=== PATIENT | male | born 1990 | race Caucasian/White ===

== ENCOUNTER 2018-01-12 11:55 | Inpatient (IN) | payer MEDICAID, OTHER ==
--- NOTE | 2018-01-12 12:26 | ED PDOC ---
Arrival/HPI <Susanne Dumont - Last Filed: 01/12/18 16:09> - General Historian: Patient, Parent - History of Present Illness Time/Duration: > week Symptom Onset: Sudden Symptom Course: Unchanged Severity Level: Mild <Horace Nguyen - Last Filed: 01/12/18 18:00> - General Chief Complaint: Headache Time Seen by Provider: 01/12/18 12:23 - History of Present Illness Narrative History of Present Illness (Text): Patient is a 27 year old male with no significant past medical history presenting to the ED with inability to sleep and hearing voices. Patient states that these symptoms started last week after smoking some marijuana and possibly taking micheal, patient did not remember if he took drugs. Patient denies having any suicidal or homicidal ideation. As per patient's father, he went through the same symptoms 5 years ago where he was admitted to [facility] but is unsure of his diagnosis. Patient further denies headaches, fevers, chills , cough, shortness of breath, chest pain, abdominal pain, N/V/D, or urinary symptoms. (Horace Nguyen) Past Medical History - Provider Review Nursing Documentation Reviewed: Yes - Travel History Have you recently traveled outside [place] w/in the past 3 mons?: No - Past History Past History: No Previous - Infectious Disease Hx of Infectious Diseases: None - Psychiatric Hx Substance Use: Yes - Anesthesia Hx Anesthesia: No <Horace Nguyen - Last Filed: 01/12/18 18:00> Family/Social History - Physician Review Nursing Documentation Reviewed: Yes Family/Social History: No Known Family HX Smoking Status: Never Smoked Hx Alcohol Use: Yes Frequency of alcohol use: Socially Hx Substance Use: Yes Substance used: marijuana, <Horace Nguyen - Last Filed: 01/12/18 18:00> Allergies/Home Meds <Susanne Dumont - Last Filed: 01/12/18 16:09> <Horace Nguyen - Last Filed: 01/12/18 18:00> Allergies/Adverse Reactions: Allergies No Known Allergies Allergy (Verified 01/12/18 12:16) Home Medications: Home Meds Medication Instructions Recorded Confirmed No Known Home Med 01/12/18 01/12/18 Review of Systems - Physician Review All systems were reviewed & negative as marked: Yes - Review of Systems Constitutional: Normal. absent: Fevers, Night Sweats Eyes: Normal ENT: Normal Respiratory: Normal. absent: SOB, Cough Cardiovascular: Normal. absent: Chest Pain Gastrointestinal: Normal. absent: Abdominal Pain, Stool Changes, Constipation, Diarrhea, Nausea, Vomiting Genitourinary Male: Normal Musculoskeletal: Arthralgias Skin: Normal. absent: Rash, Pruritis, Skin Lesions Neurological: Normal. absent: Headache Endocrine: Normal Hemo/Lymphatic: Normal Psychiatric: Normal. absent: Suicidal Ideation <Horace Nguyen - Last Filed: 01/12/18 18:00> Physical Exam Vital Signs Reviewed: Yes Temperature: Afebrile Blood Pressure: Hypertensive Pulse: Tachycardic Respiratory Rate: Normal Appearance: Positive for: Well-Appearing, Non-Toxic, Comfortable Pain Distress: None Mental Status: Positive for: Confused - Systems Exam Head: Present: Atraumatic, Normocephalic. No: Tenderness, Contusion, Abrasion, Laceration Pupils: Present: PERRL Extroacular Muscles: Present: EOMI Conjunctiva: Present: Normal Mouth: Present: Moist Mucous Membranes Neck: Present: Normal Range of Motion Respiratory/Chest: Present: Clear to Auscultation, Good Air Exchange. No: Respiratory Distress, Accessory Muscle Use Cardiovascular: Present: Normal S1, S2, Tachycardic. No: Murmurs Abdomen: Present: Normal Bowel Sounds. No: Tenderness, Distention, Peritoneal Signs Back: Present: Normal Inspection Upper Extremity: Present: Normal Inspection. No: Cyanosis, Edema Lower Extremity: Present: Normal Inspection. No: Edema Neurological: Present: GCS=15, CN II-XII Intact, Speech Normal Skin: Present: Warm, Dry, Normal Color. No: Rashes Psychiatric: Present: Alert, Hallucinations (Complains of auditory hallucinations). No: Suicidal Ideation, Homicidal Ideation <Horace Nguyen - Last Filed: 01/12/18 18:00> Vital Signs Temp Pulse Resp BP Pulse Ox 01/12/18 16:11 95 H 18 132/70 97 01/12/18 15:35 102 H 18 135/78 100 01/12/18 12:19 98.4 F 116 H 18 137/81 100 Medical Decision Making <Susanne Dumont - Last Filed: 01/12/18 16:09> <Horace Nguyen - Last Filed: 01/12/18 18:00> ED Course and Treatment: 01/12/18 14:00 Patient seen by resident and then evaluated by me. Admits to drug use and now presenting with auditory hallucinations. Prior psych admissions. Normal physical exam except for bizaree affect. EKG shows NSR at 84bpm with lvh with normal intervals and no st changes. Cxray negative. Labs reviewed and medically cleared pending psych 01/12/18 14:02 01/12/18 16:09 Accepted by psych (Susanne Dumont) Impression: Patient is a 27 year old male presenting to the ED with inability to sleep and hearing auditory hallucination. Differential Diagnosis included but are not limited to: - Substance abuse - Psychiatric illness Plan: -- Psychiatry consultation -- Acetaminophen levels -- Salicylate levels -- CMP, phos, Mag -- CBC -- TSH, T4 -- UDS -- Alcohol level -- CXR -- EKG Progress Notes: 01/12/18 12:54 - EKG: NSR at 84 bpm. 01/12/18 13:32 - Acetaminophen and salicylate levels: Negative - UDS: Negative - Alcohol level: negative - TSH, T4: WNL - CXR: No active disease 01/12/18 17:59 - Patient will voluntarily be admitted to psych. Patient is stable. (Horace Nguyen) - Lab Interpretations Lab Results: 01/12/18 12:41 01/12/18 12:41 Lab Results 01/12/18 13:15: Urine Opiates Screen Negative, Urine Methadone Screen Negative, Ur Barbiturates Screen Negative, Ur Phencyclidine Scrn Negative, Ur Amphetamines Screen Negative, U Benzodiazepines Scrn Negative, U Oth Cocaine Metabols Negative, U Cannabinoids Screen Negative 01/12/18 13:15: Urine Color Yellow, Urine Appearance Clear, Urine pH 7.0, Ur Specific [place] <= 1.005, Urine Protein Negative, Urine Glucose (UA) Negative, Urine Ketones Negative, Urine Blood Negative, Urine Nitrate Negative, Urine Bilirubin Negative, Urine Urobilinogen 0.2, Ur Leukocyte Esterase Negative 01/12/18 12:41: Alcohol, Quantitative < 10 01/12/18 12:41: Salicylates < 1 L, Acetaminophen < 10.0 L 01/12/18 12:41: Free T4 1.56, TSH 3rd Generation 0.69 01/12/18 12:41: Sodium 138, Potassium 3.8, Chloride 102, Carbon Dioxide 24, Anion Gap 16, BUN 9, Creatinine 0.8, Est GFR ( Amer) > 60, Est GFR (Non- Af Amer) > 60, Random Glucose 155 H, Calcium 10.0, Phosphorus 2.8, Magnesium 2.1 , Total Bilirubin 0.8, AST 23, ALT 26, Alkaline Phosphatase 75, Total Protein 8.2, Albumin 5.0 H, Globulin 3.2, Albumin/Globulin Ratio 1.6 01/12/18 12:41: WBC 9.0, RBC 5.10, Hgb 14.6, Hct 43.2, MCV 84.7, MCH 28.6, MCHC 33.8, RDW 13.1, Plt Count 237, MPV 10.8, Gran % 74.0 H, Lymph % (Auto) 18.3 L, [place] % (Auto) 7.2 H, Eos % (Auto) 0.2 L, Baso % (Auto) 0.3, Gran # 6.62 H, Lymph # (Auto) 1.6, [place] # (Auto) 0.6, Eos # (Auto) 0.0, Baso # (Auto) 0.03 - RAD Interpretation Radiology Orders: 01/12/18 12:39 CHEST PORTABLE [RAD] Stat Disposition/Present on Arrival - Present on Arrival Any Indicators Present on Arrival: No - Disposition Have Diagnosis and Disposition been Completed?: Yes Disposition Time: 16:10 Patient Plan: Admission <Susanne Dumont - Last Filed: 01/12/18 16:09> - Present on Arrival Any Indicators Present on Arrival: No History of DVT/PE: No History of Uncontrolled Diabetes: No Urinary Catheter: No History of Decub. Ulcer: No History Surgical Site Infection Following: None - Disposition Have Diagnosis and Disposition been Completed?: Yes Patient Plan: Admission <Horace Nguyen - Last Filed: 01/12/18 18:00> - Disposition Diagnosis: Psychosis Disposition: HOSPITALIZED Patient Problems: Current Active Problems Problem Status Onset Psychosis Acute Condition: GOOD
[2018-01-12 12:58] LABS: BASO # 0.03 K/mm3 (0.0-2.0); BASO % 0.3 % (0.0-3.0); EOS % 0.2 % (1.5-5.0); GRAN # 6.62 (1.4-6.5); HEMOGLOBIN 14.6 g/dL (14.0-18.0); LYMPH # 1.6 (1.2-3.4); LYMPH % 18.3 % (22.0-35.0); MEAN CELL VOLUME 84.7 fl (80.0-105.0); MEAN CORPUSCULAR HEMOGLOBIN 28.6 pg (25.0-35.0); MEAN CORPUSCULAR HGB CONC 33.8 g/dl (31.0-37.0); MEAN PLATELET VOLUME 10.8 fl (7.0-11.0); MONO # 0.6 (0.1-0.6); MONO % 7.2 % (1.0-6.0); RBC 5.1 10^6/uL (3.5-6.1); RED CELL DISTRIBUTION WIDTH 13.1 % (11.5-14.5)
[2018-01-12 13:09] LABS: ACETAMINOPHEN < 10.0 ug/ml (10.0-20.0); SALICYLATE < 1 mg/dL (2.0-20.0)
[2018-01-12 13:11] LABS: ALB/GLOB RATIO 1.6 (1.1-1.8); ALT/SGPT 26 U/L (7-56); AST/SGOT 23 U/L (17-59); BLOOD UREA NITROGEN 9 mg/dL (7-21); GFR NON-AFRICAN AMERICAN > 60
[2018-01-12 13:26] LABS: FREE T4 1.56 ng/dL (0.78-2.19)
[2018-01-12 13:39] LABS: URINE BILIRUBIN NEGATIVE (NEGATIVE); URINE BLOOD NEGATIVE (NEGATIVE); URINE GLUCOSE (UA) NEGATIVE (NEGATIVE); URINE LEUKOCYTE ESTERASE NEGATIVE Leu/uL (NEGATIVE); URINE PROTEIN NEGATIVE mg/dL (<30 mg/dL); URINE UROBILINOGEN 0.2 E.U./dL (<1 E.U./dL)
[2018-01-12 13:40] LABS: URINE APPEARANCE CLEAR (CLEAR); URINE COLOR YELLOW (YELLOW)
--- NOTE | 2018-01-12 13:44 | RAD ---
Date of service: 01/12/2018 HISTORY: psych COMPARISON: No prior. FINDINGS: LUNGS: No active pulmonary disease. PLEURA: No significant pleural effusion identified, no pneumothorax apparent. CARDIOVASCULAR: Normal. OSSEOUS STRUCTURES: No significant abnormalities. VISUALIZED UPPER ABDOMEN: Normal. OTHER FINDINGS: None. IMPRESSION: No active disease.
[2018-01-12 13:58] LABS: BARBITURATES, UR NEGATIVE (NEGATIVE); BENZODIAZEPINES, UR NEGATIVE (NEGATIVE); OPIATES, UR NEGATIVE (NEGATIVE); PHENCYCLIDINE, UR NEGATIVE (NEGATIVE)
[2018-01-12 22:52] VITALS: O2SAT 98
[2018-01-12] MEDS ORDERED: Magnesium Hydroxide Susp 30 ml UD PO PRN (22:57)
[2018-01-12] MEDS ORDERED: Alum-Mag Hydrox-Simethicone Susp (30 mL) PO PRN (22:57)
--- NOTE | 2018-01-13 01:49 | PCM.BM ---
<Yo Wolffnadine - Last Filed: 01/13/18 01:47> Treatment Plan Problems - Problems identified on initial assessmt Auditory Hallucinations Date Initiated: 01/13/18 Time Initiated: 01:47 Assessment reference: NA Status: Active Altered Thought Process Date Initiated: 01/13/18 Time Initiated: 01:47 Assessment reference: NA Status: Active Medication nonadherence Date Initiated: 01/13/18 Time Initiated: 01:47 Assessment reference: NA Status: Active Ineffective Coping Date Initiated: 01/13/18 Time Initiated: 01:48 Assessment reference: NA Status: Active Treatment assets and liabiliti Patient Assests: ADL independent, physically healthy, good support system, negotiates basic needs Patient Liabilities: relationship conflicts, substance abuse - Milieu Protocol Maintain good personal hygiene: daily Encourage regular showers, daily Remind patient to perform daily oral care, daily Assist patient to perform ADL's Conduct patient checks and document Observation sheet: Q15 minutes Maintain personal safety: every shift Educate patient to report safety concerns to staff, every shift Monitor environment for contraband/sharps Medication safety: Monitor for expected outcome, potential side effects: every shift, Assess barriers to learning: every shift, Assess readiness for medication education: every shift Discharge/Continuing Care - Education Needs Education Needs: Patient Medication, Patient Diagnosis/Disease Process, Patient Coping Skills, Patient Community resources, Patient Activities of Daily Living, Patient Nutrition, Patient Health Practices/Safety, Patient Personal Hygiene/ Grooming, Patient Aftercare Safety Plan - Discharge Discharge Criteria: Tolerates medication w/o severe side effects, Free of paranoid thoughts, Free of agitation, Normal sleep pattern, Ability to care for self <Iesha Adame - Last Filed: 01/13/18 12:50> - Diagnosis (1) Schizophrenia Status: Acute Interventions: 01/13/18 12:50 Psychoeducation/psychotherapy Psychopharmacology/adjustment of medications as needed/ monitoring possible side effects Evaluate pt on daily basis Compliance with medications and follow up appointments Long acting medication if pt is noncompliant with pill form Suicide and homicide risk assessment and prevention, coping strategies, safety plan Relapse prevention Reduction of symptoms Improve functional status Possible assertive community treatment Cognitive behavioral therapy Family involvement Possible social skill training as outpatient <Hira Sargent - Last Filed: 01/14/18 09:56> Treatment assets and liabiliti Patient Assests: ADL independent, good support system - Milieu Protocol Maintain good personal hygiene: every other day Encourage regular showers, every shift Remind patient to perform daily oral care, every shift Assist patient to perform ADL's Conduct patient checks and document Observation sheet: Q15 minutes Maintain personal safety: every shift Educate patient to report safety concerns to staff, every shift Monitor environment for contraband/sharps Medication safety: Monitor for expected outcome, potential side effects: every shift, Assess barriers to learning: every shift, Assess readiness for medication education: every shift Family Contact Family involvement: Family/SO is involved Family contact: Patient agrees to contact Discharge/Continuing Care - Education Needs Education Needs: Patient Medication, Patient Diagnosis/Disease Process, Patient Coping Skills, Patient Anger Management skills, Patient Placement options, Patient Community resources, Patient Activities of Daily Living, Patient Nutrition, Patient Uses of Medical Equipment, Patient Health Practices/Safety, Patient Personal Hygiene/Grooming, Patient Aftercare Safety Plan - Discharge Discharge Criteria: Tolerates medication w/o severe side effects, Free of paranoid thoughts, Normal sleep pattern, Reduction of target symptoms Discharge to:: Home <Bailey Aaron - Last Filed: 01/15/18 15:07>
[2018-01-13 07:06] VITALS: RESP 20
[2018-01-13 08:01] LABS: GLUCOSE,FASTING 89 mg/dL (65-110); HDL CHOLESTEROL 46 mg/dL (29-60)
[2018-01-13 08:12] LABS: LDL CHOLESTEROL 71 mg/dL (0-129)
--- NOTE | 2018-01-13 13:37 | PCM.PSYCH ---
Initial Psychiatric Evaluation - Initial Psychiatric Evaluation Type of Admission: Voluntary Legal Status: Capacity (patient has capacity to sign consent for treatment) Chief Complaint (in patient's own words): "i was hearing something, I also thought that my parents are not my real parents , I was planning to have blood work to make sure that my parents are my true parents" Patient's Reaction to Hospitalization: patient was admitted to psychiatric inpatient unit for evaluation and stabilization of disorganized thoughts, behavior, paranoia, inability to function. History of Present Illness and Precipitating Events: Patient is a 27 year old male with reported history of psychosis, 1 psychiatric admission at [facility], patient was on injectable form of medications (pt and his family do not remember), pt has no major medical issues , patient brought in by his parents for evaluation and stabilization of disorganized thoughts, behavior, inability to sleep, hearing voices, patient was self isolating, patient has long history of being noncompliance with the medications and follow up appointments, patient requires further evaluation and stabilization in acute psychiatric unit. Patient was seen and examined today at quiet room, as per staff patient was not able to calm down, patient presented to be guarded, paranoid, disorganized thoughts, patient required IM medication Geodon and Ativan because patient was in danger to self or others, tried to eloe from the unit, after IM patient was able to calm down, had few hours of sleep overnight. pt was seen and examined, pt presented to be sleepy, had hard time to concentrate during the interview, acceptable hygiene, good ADLs. pt said he heard some gun shot in his house but was not sure, pt also reported that he hears voices, pt denied command type hallucinations. pt said that he feels that his parents are not his biological parents and "I even wanted to have a blood work to make sure that they are my blood parents ( capgras syndrome). pt presented with disorganized thought process, flat affect. pt denied being depressed, denied thoughts of harming self or others. pt reported that he smokes marijuana "I don't know when and how much". denied drinking alcohol. past psych h/o: one psychiatric admission two years ago, pt was on injectable form of antipsychotic medication most likely it was Invega sustenna, pt denied h /o suicidal attempts, contracted for safety. pt denied family h/o mental illness, denied suicidal attempts. pt denied any major medical issues. 01/12/18 12:41 01/12/18 12:41 Lab Results 01/13/18 07:15: Fasting Glucose 89, Triglycerides 74, Cholesterol 142, LDL Cholesterol Direct 71, HDL Cholesterol 46 01/13/18 07:15: TSH 3rd Generation 0.55 01/12/18 13:15: Urine Opiates Screen Negative, Urine Methadone Screen Negative, Ur Barbiturates Screen Negative, Ur Phencyclidine Scrn Negative, Ur Amphetamines Screen Negative, U Benzodiazepines Scrn Negative, U Oth Cocaine Metabols Negative, U Cannabinoids Screen Negative 01/12/18 13:15: Urine Color Yellow, Urine Appearance Clear, Urine pH 7.0, Ur Specific [place] <= 1.005, Urine Protein Negative, Urine Glucose (UA) Negative, Urine Ketones Negative, Urine Blood Negative, Urine Nitrate Negative, Urine Bilirubin Negative, Urine Urobilinogen 0.2, Ur Leukocyte Esterase Negative 01/12/18 12:41: Alcohol, Quantitative < 10 01/12/18 12:41: Salicylates < 1 L, Acetaminophen < 10.0 L 01/12/18 12:41: Free T4 1.56, TSH 3rd Generation 0.69 01/12/18 12:41: Sodium 138, Potassium 3.8, Chloride 102, Carbon Dioxide 24, Anion Gap 16, BUN 9, Creatinine 0.8, Est GFR ( Amer) > 60, Est GFR (Non- Af Amer) > 60, Random Glucose 155 H, Calcium 10.0, Phosphorus 2.8, Magnesium 2.1 , Total Bilirubin 0.8, AST 23, ALT 26, Alkaline Phosphatase 75, Total Protein 8.2, Albumin 5.0 H, Globulin 3.2, Albumin/Globulin Ratio 1.6 01/12/18 12:41: WBC 9.0, RBC 5.10, Hgb 14.6, Hct 43.2, MCV 84.7, MCH 28.6, MCHC 33.8, RDW 13.1, Plt Count 237, MPV 10.8, Gran % 74.0 H, Lymph % (Auto) 18.3 L, [place] % (Auto) 7.2 H, Eos % (Auto) 0.2 L, Baso % (Auto) 0.3, Gran # 6.62 H, Lymph # (Auto) 1.6, [place] # (Auto) 0.6, Eos # (Auto) 0.0, Baso # (Auto) 0.03 Vital Signs Temp Pulse Resp BP Pulse Ox 01/13/18 07:00 98 F 74 20 123/78 01/12/18 21:50 98.2 F 90 17 130/90 98 01/12/18 21:18 98.7 F 92 H 17 135/67 99 01/12/18 16:11 95 H 18 132/70 97 01/12/18 15:35 102 H 18 135/78 100 01/12/18 12:19 98.4 F 116 H 18 137/81 100 collateral information from patient's mother by licensed master social worker: Please see licensed master social worker notes for more detailed information. Patient was functioning relatively well, 3 days ago patient started to pace, was disorganized, was not able to sleep, patient had one previous admissions to [facility] 2 years back, patient was noncompliant with the medications but as per mother patient was functioning relatively well. No aggression, no agitation in the past. Current Medications: Active Medications Generic Name Dose Route Start Last Admin Trade Name Freq PRN Reason Stop Dose Admin Acetaminophen 650 mg 01/12/18 22:57 Tylenol 325mg Tab PO Q6H PRN Pain, moderate (4-7) Al Hydrox/Mg Hydrox/Simethicone 30 ml 01/12/18 22:57 Maalox Plus 30 Ml PO DAILY PRN Upset Stomach Lorazepam 2 mg 01/12/18 22:33 01/12/18 22:42 Ativan PO 2 mg Q6 PRN Administration agitation, psychosis Protocol Lorazepam 2 mg 01/12/18 22:33 01/12/18 23:35 Ativan IM 2 mg Q6 PRN Administration agitation, psychosis Protocol Magnesium Hydroxide 30 ml 01/12/18 22:57 Milk Of Magnesia PO DAILY PRN Constipation Ziprasidone 20 mg 01/12/18 22:33 01/12/18 22:42 Geodon Cap PO 20 mg Q6 PRN Administration agitation, psychosis Protocol Ziprasidone 20 mg 01/12/18 22:33 01/12/18 23:37 Geodon Inj IM 20 mg Q6 PRN Administration agitation, psychosis Protocol Past Psychiatric History - Past Psychiatric History Previous Treatment History: Inpatient Prior Professional Help: see HPI Prior Psychiatric Treatment: see HPI At what hospital: see HPI Duration: see HPI Nature of Treatment: see HPI Explanation of prior treatment: see HPI History of Abuse: see HPI History of ETOH/Drug Use: see HPI History of Family Illness: see HPI Pertinent Medical Hx (Current Medical&Sleep Prob, Allergies): Allergies Allergy/AdvReac Type Severity Reaction Status Date / Time No Known Allergies Allergy Verified 01/12/18 22:53 No Known Home Med 01/12/18 Review of Systems - Review of Systems Systems not reviewed;Unavailable: Acuity of Condition - EENT Eyes: As Per HPI Ears: As Per HPI Nose/Mouth/Throat: As Per HPI - Cardiovascular Cardiovascular: As Per HPI - Respiratory Respiratory: As Per HPI - Gastrointestinal Gastrointestinal: As Per HPI - Genitourinary Genitourinary: As Per HPI - Reproductive: Male Reproductive:Male: As Per HPI - Musculoskeletal Musculoskeletal: As Par HPI - Integumentary Integumentary: As Per HPI - Neurological Neurological: As Per HPI - Psychiatric Psychiatric: As Per HPI - Endocrine Endocrine: As Per HPI - Hematologic/Lymphatic Hematologic: As Per HPI Mental Status Examination - Personal Presentation Personal Presentation: Looks stated age - Affect Affect: Flat - Motor Activity Motor Activity: Psychomotor Retardation - Reliability in Providing Information Reliability in Providing Information: Poor, due to alteration in thoughts - Speech Speech: Disorganized - Formal Thought Process Formal Thought Process: Hallucinations, Delusions, Paranoia, Loosening of associations - Hallucinations/Delusions Delusions: Persecution - Obsessions/Compulsions Obsessions: None Compulsions: None - Cognitive Functions Orientation: Person, Place Sensorium: Alert Attention/Concentration: Easily distracted Estimate of Intelligence: Below average Judgement: Intact, as evidence by: Insight regarding need for hospitalization - Risk Risk: Diminished functioning - Strength & Assets Inventory Strength & Assets Inventory: Family support, Cooperative - Limitations Limitations: Other (history of noncompliance with the medication and follow-up appointments) DSM 5 DX - DSM 5 DSM 5 Diagnosis: rule out schizophrenia - Recommended/Plan of Treatment Treatment Recommendations and Plan of Treatment: Medical consult appreciated, see medical team note for more detailed info SW consultation for discharge plan and social issues Med management considering the fact that patient was doing well on and vague about we will resume Risperdal for now As needed medications Family involvement Follow up on labs Will monitor closely Pt was educated about risk/benefits and alternatives of medications, coping strategies (safety plan, suicide prevention), relapse prevention, importance of follow up with psychiatrist and therapist, stay away from drugs/alcohol/smoking Projected ELOS: 7 days Prognosis: fair Discharge Plan and Discharge Criteria: Pt will be not depressed or manic, will be more hopeful, will be not psychotic or anxious, will be not having thoughts of harming self or others, will be tolerating medications well, will not have major side effects, will be able to function, will not pose threat to self or others. - Smoking Cessation Smoking Cessation Initiated: No Reason for not providing: pt denied smoking
--- NOTE | 2018-01-13 14:03 | CARD ---
APPROVED REPORT Date of service: 01/12/2018 EKG Measurement Heart [id number] <Conclusion> Normal sinus rhythm Minimal voltage criteria for LVH, may be normal variant Borderline ECG
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
--- NOTE | 2018-01-15 15:40 | PCM.PYCHPN ---
Psychiatric Progress Note - Psychiatric Progress Note Patient seen today, length of contact: 30 minutes Patient Chief Complaint: "my parents brought me in, medication works, it is not bad,I don't need to be on medications but I'm okay with that." Problems Identified/Issues Discussed: Suicide/ homicide prevention, past psychiatric h/o, current psychiatric symptoms , medical problems, risk/benefits and alternatives of medications, medications compliance, coping strategies, substance abuse h/o, relapse prevention, importance of follow up with psychiatrist and therapist, discharge plan. Medical Problems: see HPI Diagnostic Results: 01/12/18 12:41 01/12/18 12:41 Lab Results 01/13/18 07:15: Fasting Glucose 89, Triglycerides 74, Cholesterol 142, LDL Cholesterol Direct 71, HDL Cholesterol 46 01/13/18 07:15: RPR Nonreactive 01/13/18 07:15: TSH 3rd Generation 0.55 01/12/18 13:15: Urine Opiates Screen Negative, Urine Methadone Screen Negative, Ur Barbiturates Screen Negative, Ur Phencyclidine Scrn Negative, Ur Amphetamines Screen Negative, U Benzodiazepines Scrn Negative, U Oth Cocaine Metabols Negative, U Cannabinoids Screen Negative 01/12/18 13:15: Urine Color Yellow, Urine Appearance Clear, Urine pH 7.0, Ur Specific [place] <= 1.005, Urine Protein Negative, Urine Glucose (UA) Negative, Urine Ketones Negative, Urine Blood Negative, Urine Nitrate Negative, Urine Bilirubin Negative, Urine Urobilinogen 0.2, Ur Leukocyte Esterase Negative 01/12/18 12:41: Alcohol, Quantitative < 10 01/12/18 12:41: Salicylates < 1 L, Acetaminophen < 10.0 L 01/12/18 12:41: Free T4 1.56, TSH 3rd Generation 0.69 01/12/18 12:41: Sodium 138, Potassium 3.8, Chloride 102, Carbon Dioxide 24, Anion Gap 16, BUN 9, Creatinine 0.8, Est GFR ( Amer) > 60, Est GFR (Non- Af Amer) > 60, Random Glucose 155 H, Calcium 10.0, Phosphorus 2.8, Magnesium 2.1 , Total Bilirubin 0.8, AST 23, ALT 26, Alkaline Phosphatase 75, Total Protein 8.2, Albumin 5.0 H, Globulin 3.2, Albumin/Globulin Ratio 1.6 01/12/18 12:41: WBC 9.0, RBC 5.10, Hgb 14.6, Hct 43.2, MCV 84.7, MCH 28.6, MCHC 33.8, RDW 13.1, Plt Count 237, MPV 10.8, Gran % 74.0 H, Lymph % (Auto) 18.3 L, [place] % (Auto) 7.2 H, Eos % (Auto) 0.2 L, Baso % (Auto) 0.3, Gran # 6.62 H, Lymph # (Auto) 1.6, [place] # (Auto) 0.6, Eos # (Auto) 0.0, Baso # (Auto) 0.03 Vital Signs Temp Pulse Resp BP Pulse Ox 01/14/18 07:02 98.1 F 70 20 121/73 01/13/18 16:00 136 H 125/79 01/13/18 07:00 98 F 74 20 123/78 01/12/18 21:50 98.2 F 90 17 130/90 98 01/12/18 21:18 98.7 F 92 H 17 135/67 99 01/12/18 16:11 95 H 18 132/70 97 01/12/18 15:35 102 H 18 135/78 100 01/12/18 12:19 98.4 F 116 H 18 137/81 100 DSM 5 Symptoms Update: Patient is a 27 year old male with reported history of psychosis, [address] [facility], patient was on injectable form of medications (pt and his family do not remember), pt has no major medical issues , patient brought in by his parents for evaluation and stabilization of disorganized thoughts, behavior, inability to sleep, hearing voices, patient was self isolating, patient has long history of being noncompliance with the medications and follow up appointments, patient requires further evaluation and stabilization in acute psychiatric unit. as per self patient is more compliant with meds, no episodes of agitation or aggression, pt did not try to elope. Patient was seen in his room, still guarded, paranoid, very concrete thought processes, patient also presented to be disorganized, patient was withholding information and not willing to discuss his symptoms and treatment options. some positive changes, pt's affect is more reactive. Patient reported that he tolerates medications well, no side effects observed or reported, aims 0, no EPS. patient still has poor insight, has no clear explanation why he admitted himself to the hospital, ague answers "my parents brought me in, medication works, it is not bad,I don't need to be on medications but I'm okay with that." impression: Rule out schizophrenia Medication Change: Yes (Cogentin increased) Medical Record Reviewed: Yes Mental Status Examination - Cognitive Function Orientation: Person, Place Memory: Intact Attention: Poor Concentration: Poor Association: Loose Fund of Knowledge: Poor - Mood Mood: Depressed - Affect Affect: Flat - Formal Thought Process Formal Thought Process: Hallucinations, Delusions, Paranoia, Loosening of associations - Suicidal Ideation Suicidal Ideation: No - Homicidal Ideation Homicidal Ideation: No Goal/Treatment Plan - Goal/Treatment Plan Need for Continued Stay: Remain at risks for inpatient hospitalization, Severe depression anxiety, Discharge may exacerbated symptoms, Severe functional impairment Progress Toward Problem(s) and Goals/Treatment Plan: Medical consult appreciated, see medical team note for more detailed info SW consultation for discharge plan and social issues Med management Risperdal 1 mg 3 times a day for psychosis Cogentin 0.5 mg twice a day as well as 1 mg at the nighttime for possible EPS As needed medications Family involvement, we will invite patient mother for family meeting Follow up on labs Will monitor closely Pt was educated about risk/benefits and alternatives of medications, coping strategies (safety plan, suicide prevention), relapse prevention, importance of follow up with psychiatrist and therapist, stay away from drugs/alcohol/smoking Estimated Date of D/C: 01/19/18
--- NOTE | 2018-01-16 14:39 | PCM.PYCHPN ---
Psychiatric Progress Note - Psychiatric Progress Note Patient seen today, length of contact: 30 minutes Patient Chief Complaint: "I am alright" Problems Identified/Issues Discussed: Suicide/ homicide prevention, past psychiatric h/o, current psychiatric symptoms , medical problems, risk/benefits and alternatives of medications, medications compliance, coping strategies, substance abuse h/o, relapse prevention, importance of follow up with psychiatrist and therapist, discharge plan. Medical Problems: see HPI Diagnostic Results: 01/12/18 12:41 01/12/18 12:41 Lab Results 01/13/18 07:15: Fasting Glucose 89, Triglycerides 74, Cholesterol 142, LDL Cholesterol Direct 71, HDL Cholesterol 46 01/13/18 07:15: RPR Nonreactive 01/13/18 07:15: TSH 3rd Generation 0.55 01/12/18 13:15: Urine Opiates Screen Negative, Urine Methadone Screen Negative, Ur Barbiturates Screen Negative, Ur Phencyclidine Scrn Negative, Ur Amphetamines Screen Negative, U Benzodiazepines Scrn Negative, U Oth Cocaine Metabols Negative, U Cannabinoids Screen Negative 01/12/18 13:15: Urine Color Yellow, Urine Appearance Clear, Urine pH 7.0, Ur Specific [place] <= 1.005, Urine Protein Negative, Urine Glucose (UA) Negative, Urine Ketones Negative, Urine Blood Negative, Urine Nitrate Negative, Urine Bilirubin Negative, Urine Urobilinogen 0.2, Ur Leukocyte Esterase Negative 01/12/18 12:41: Alcohol, Quantitative < 10 01/12/18 12:41: Salicylates < 1 L, Acetaminophen < 10.0 L 01/12/18 12:41: Free T4 1.56, TSH 3rd Generation 0.69 01/12/18 12:41: Sodium 138, Potassium 3.8, Chloride 102, Carbon Dioxide 24, Anion Gap 16, BUN 9, Creatinine 0.8, Est GFR ( Amer) > 60, Est GFR (Non- Af Amer) > 60, Random Glucose 155 H, Calcium 10.0, Phosphorus 2.8, Magnesium 2.1 , Total Bilirubin 0.8, AST 23, ALT 26, Alkaline Phosphatase 75, Total Protein 8.2, Albumin 5.0 H, Globulin 3.2, Albumin/Globulin Ratio 1.6 01/12/18 12:41: WBC 9.0, RBC 5.10, Hgb 14.6, Hct 43.2, MCV 84.7, MCH 28.6, MCHC 33.8, RDW 13.1, Plt Count 237, MPV 10.8, Gran % 74.0 H, Lymph % (Auto) 18.3 L, [place] % (Auto) 7.2 H, Eos % (Auto) 0.2 L, Baso % (Auto) 0.3, Gran # 6.62 H, Lymph # (Auto) 1.6, [place] # (Auto) 0.6, Eos # (Auto) 0.0, Baso # (Auto) 0.03 Vital Signs Temp Pulse Resp BP Pulse Ox 01/14/18 07:02 98.1 F 70 20 121/73 01/13/18 16:00 136 H 125/79 01/13/18 07:00 98 F 74 20 123/78 01/12/18 21:50 98.2 F 90 17 130/90 98 01/12/18 21:18 98.7 F 92 H 17 135/67 99 01/12/18 16:11 95 H 18 132/70 97 01/12/18 15:35 102 H 18 135/78 100 01/12/18 12:19 98.4 F 116 H 18 137/81 100 DSM 5 Symptoms Update: Patient is a 27 year old male with reported history of psychosis, 1 psychiatric admission at [facility], patient was on injectable form of medications (pt and his family do not remember), pt has no major medical issues , patient brought in by his parents for evaluation and stabilization of disorganized thoughts, behavior, inability to sleep, hearing voices, patient was self isolating, patient has long history of being noncompliance with the medications and follow up appointments, patient requires further evaluation and stabilization in acute psychiatric unit. as per self patient is more compliant with meds, no episodes of agitation or aggression, pt did not try to elope. pt's affect was more reactive, pt is more visible in the unit, but still guarded , paranoid, very concrete thought processes, patient also presented to be disorganized, patient was withholding information and not willing to discuss his symptoms and treatment options. Patient reported that he tolerates medications well, no side effects observed or reported, aims 0, no EPS. patient still has poor insight, has no clear explanation why he admitted himself to the hospital, ague answers "my parents brought me in, medication works, it is not bad,I don't need to be on medications but I'm okay with that." mother is coming for the family meeting Friday. impression: Rule out schizophrenia Medication Change: Yes (Cogentin increased) Medical Record Reviewed: Yes Mental Status Examination - Cognitive Function Orientation: Person, Place Memory: Intact Attention: Poor (some improvement) Concentration: Poor (some improvement) Association: Loose Fund of Knowledge: Poor (baseline) - Mood Mood: Depressed (I feel better") - Affect Affect: Flat - Formal Thought Process Formal Thought Process: Hallucinations (denied but patient presented to be responding to internal stimuli), Delusions, Paranoia (ppatient is guarded), Loosening of associations - Suicidal Ideation Suicidal Ideation: No - Homicidal Ideation Homicidal Ideation: No Goal/Treatment Plan - Goal/Treatment Plan Need for Continued Stay: Remain at risks for inpatient hospitalization, Severe depression anxiety, Discharge may exacerbated symptoms, Severe functional impairment Progress Toward Problem(s) and Goals/Treatment Plan: Medical consult appreciated, see medical team note for more detailed info SW consultation for discharge plan and social issues Med management Risperdal 2mg po amhstimes a day for psychosis Cogentin 1mg amhs for possible EPS As needed medications Family meeting on 01/20/2018 Follow up on labs Will monitor closely Pt was educated about risk/benefits and alternatives of medications, coping strategies (safety plan, suicide prevention), relapse prevention, importance of follow up with psychiatrist and therapist, stay away from drugs/alcohol/smoking Estimated Date of D/C: 01/20/18
--- NOTE | 2018-01-17 10:36 | PCM.PYCHPN ---
Psychiatric Progress Note - Psychiatric Progress Note Patient seen today, length of contact: 30 minutes Patient Chief Complaint: "I feel better, I want to be on Invega" Problems Identified/Issues Discussed: Suicide/ homicide prevention, past psychiatric h/o, current psychiatric symptoms , medical problems, risk/benefits and alternatives of medications, medications compliance, coping strategies, substance abuse h/o, relapse prevention, importance of follow up with psychiatrist and therapist, discharge plan. Medical Problems: see HPI Diagnostic Results: 01/12/18 12:41 01/12/18 12:41 Lab Results 01/13/18 07:15: Fasting Glucose 89, Triglycerides 74, Cholesterol 142, LDL Cholesterol Direct 71, HDL Cholesterol 46 01/13/18 07:15: RPR Nonreactive 01/13/18 07:15: TSH 3rd Generation 0.55 01/12/18 13:15: Urine Opiates Screen Negative, Urine Methadone Screen Negative, Ur Barbiturates Screen Negative, Ur Phencyclidine Scrn Negative, Ur Amphetamines Screen Negative, U Benzodiazepines Scrn Negative, U Oth Cocaine Metabols Negative, U Cannabinoids Screen Negative 01/12/18 13:15: Urine Color Yellow, Urine Appearance Clear, Urine pH 7.0, Ur Specific [place] <= 1.005, Urine Protein Negative, Urine Glucose (UA) Negative, Urine Ketones Negative, Urine Blood Negative, Urine Nitrate Negative, Urine Bilirubin Negative, Urine Urobilinogen 0.2, Ur Leukocyte Esterase Negative 01/12/18 12:41: Alcohol, Quantitative < 10 01/12/18 12:41: Salicylates < 1 L, Acetaminophen < 10.0 L 01/12/18 12:41: Free T4 1.56, TSH 3rd Generation 0.69 01/12/18 12:41: Sodium 138, Potassium 3.8, Chloride 102, Carbon Dioxide 24, Anion Gap 16, BUN 9, Creatinine 0.8, Est GFR ( Amer) > 60, Est GFR (Non- Af Amer) > 60, Random Glucose 155 H, Calcium 10.0, Phosphorus 2.8, Magnesium 2.1 , Total Bilirubin 0.8, AST 23, ALT 26, Alkaline Phosphatase 75, Total Protein 8.2, Albumin 5.0 H, Globulin 3.2, Albumin/Globulin Ratio 1.6 01/12/18 12:41: WBC 9.0, RBC 5.10, Hgb 14.6, Hct 43.2, MCV 84.7, MCH 28.6, MCHC 33.8, RDW 13.1, Plt Count 237, MPV 10.8, Gran % 74.0 H, Lymph % (Auto) 18.3 L, [place] % (Auto) 7.2 H, Eos % (Auto) 0.2 L, Baso % (Auto) 0.3, Gran # 6.62 H, Lymph # (Auto) 1.6, [place] # (Auto) 0.6, Eos # (Auto) 0.0, Baso # (Auto) 0.03 Vital Signs Temp Pulse Resp BP Pulse Ox 01/14/18 07:02 98.1 F 70 20 121/73 01/13/18 16:00 136 H 125/79 01/13/18 07:00 98 F 74 20 123/78 01/12/18 21:50 98.2 F 90 17 130/90 98 01/12/18 21:18 98.7 F 92 H 17 135/67 99 01/12/18 16:11 95 H 18 132/70 97 01/12/18 15:35 102 H 18 135/78 100 01/12/18 12:19 98.4 F 116 H 18 137/81 100 Temp Pulse Resp BP Pulse Ox 97.9 F 75 20 124/73 98 01/17/18 06:54 01/17/18 06:54 01/17/18 06:54 01/17/18 06:54 01/12/18 21:50 DSM 5 Symptoms Update: Patient is a 27 year old male with reported history of psychosis, 1 psychiatric admission at [facility], patient was on injectable form of medications (pt and his family do not remember), pt has no major medical issues , patient brought in by his parents for evaluation and stabilization of disorganized thoughts, behavior, inability to sleep, hearing voices, patient was self isolating, patient has long history of being noncompliance with the medications and follow up appointments, patient requires further evaluation and stabilization in acute psychiatric unit. as per self patient is more compliant with meds, no episodes of agitation or aggression, pt did not try to elope. pt's affect was more reactive, pt is more visible in the unit, less guarded, paranoid, very concrete thought processes, pt is more talkative, today was asking questions about Invega, pt seems to be improving, willing to take IM of Invega S[place]. Patient reported that he tolerates medications well, no side effects observed or reported, aims 0, no EPS. insight is improving, impulses better controlled. mother is coming for the family meeting Friday. impression: Rule out schizophrenia Medication Change: No (meds adjusted yesterday) Medical Record Reviewed: Yes Consults ordered or reviewed: patient was seen by medical team in the emergency room Mental Status Examination - Cognitive Function Orientation: Person, Place Memory: Intact Attention: Poor (some improvement) Concentration: Poor (some improvement) Association: Loose Fund of Knowledge: Poor (baseline) - Mood Mood: Depressed (I feel better") - Affect Affect: Flat - Formal Thought Process Formal Thought Process: Hallucinations (denied but patient presented to be responding to internal stimuli), Delusions, Paranoia (ppatient is guarded), Other (thought process is better organized) - Suicidal Ideation Suicidal Ideation: No - Homicidal Ideation Homicidal Ideation: No Goal/Treatment Plan - Goal/Treatment Plan Need for Continued Stay: Remain at risks for inpatient hospitalization, Severe depression anxiety, Discharge may exacerbated symptoms, Severe functional impairment Progress Toward Problem(s) and Goals/Treatment Plan: Medical consult appreciated, see medical team note for more detailed info SW consultation for discharge plan and social issues Med management Risperdal 2mg po amhstimes a day for psychosis Cogentin 1mg amhs for possible EPS As needed medications Family meeting on 01/20/2018 invega could be given on Friday Follow up on labs Will monitor closely Pt was educated about risk/benefits and alternatives of medications, coping strategies (safety plan, suicide prevention), relapse prevention, importance of follow up with psychiatrist and therapist, stay away from drugs/alcohol/smoking Estimated Date of D/C: 01/20/18
--- NOTE | 2018-01-18 11:29 | PCM.PYCHPN ---
Psychiatric Progress Note - Psychiatric Progress Note Patient seen today, length of contact: 30 minutes Patient Chief Complaint: "I feel better, I want to be on Invega" Problems Identified/Issues Discussed: Suicide/ homicide prevention, past psychiatric h/o, current psychiatric symptoms , medical problems, risk/benefits and alternatives of medications, medications compliance, coping strategies, substance abuse h/o, relapse prevention, importance of follow up with psychiatrist and therapist, discharge plan. Medical Problems: see HPI Diagnostic Results: 01/12/18 12:41 01/12/18 12:41 Lab Results 01/13/18 07:15: Fasting Glucose 89, Triglycerides 74, Cholesterol 142, LDL Cholesterol Direct 71, HDL Cholesterol 46 01/13/18 07:15: RPR Nonreactive 01/13/18 07:15: TSH 3rd Generation 0.55 01/12/18 13:15: Urine Opiates Screen Negative, Urine Methadone Screen Negative, Ur Barbiturates Screen Negative, Ur Phencyclidine Scrn Negative, Ur Amphetamines Screen Negative, U Benzodiazepines Scrn Negative, U Oth Cocaine Metabols Negative, U Cannabinoids Screen Negative 01/12/18 13:15: Urine Color Yellow, Urine Appearance Clear, Urine pH 7.0, Ur Specific [place] <= 1.005, Urine Protein Negative, Urine Glucose (UA) Negative, Urine Ketones Negative, Urine Blood Negative, Urine Nitrate Negative, Urine Bilirubin Negative, Urine Urobilinogen 0.2, Ur Leukocyte Esterase Negative 01/12/18 12:41: Alcohol, Quantitative < 10 01/12/18 12:41: Salicylates < 1 L, Acetaminophen < 10.0 L 01/12/18 12:41: Free T4 1.56, TSH 3rd Generation 0.69 01/12/18 12:41: Sodium 138, Potassium 3.8, Chloride 102, Carbon Dioxide 24, Anion Gap 16, BUN 9, Creatinine 0.8, Est GFR ( Amer) > 60, Est GFR (Non- Af Amer) > 60, Random Glucose 155 H, Calcium 10.0, Phosphorus 2.8, Magnesium 2.1 , Total Bilirubin 0.8, AST 23, ALT 26, Alkaline Phosphatase 75, Total Protein 8.2, Albumin 5.0 H, Globulin 3.2, Albumin/Globulin Ratio 1.6 01/12/18 12:41: WBC 9.0, RBC 5.10, Hgb 14.6, Hct 43.2, MCV 84.7, MCH 28.6, MCHC 33.8, RDW 13.1, Plt Count 237, MPV 10.8, Gran % 74.0 H, Lymph % (Auto) 18.3 L, [place] % (Auto) 7.2 H, Eos % (Auto) 0.2 L, Baso % (Auto) 0.3, Gran # 6.62 H, Lymph # (Auto) 1.6, [place] # (Auto) 0.6, Eos # (Auto) 0.0, Baso # (Auto) 0.03 Vital Signs Temp Pulse Resp BP Pulse Ox 01/14/18 07:02 98.1 F 70 20 121/73 01/13/18 16:00 136 H 125/79 01/13/18 07:00 98 F 74 20 123/78 01/12/18 21:50 98.2 F 90 17 130/90 98 01/12/18 21:18 98.7 F 92 H 17 135/67 99 01/12/18 16:11 95 H 18 132/70 97 01/12/18 15:35 102 H 18 135/78 100 01/12/18 12:19 98.4 F 116 H 18 137/81 100 Temp Pulse Resp BP Pulse Ox 97.9 F 75 20 124/73 98 01/17/18 06:54 01/17/18 06:54 01/17/18 06:54 01/17/18 06:54 01/12/18 21:50 DSM 5 Symptoms Update: Patient is a 27 year old male with reported history of psychosis, 1 psychiatric admission at [facility], patient was on injectable form of medications (pt and his family do not remember), pt has no major medical issues , patient brought in by his parents for evaluation and stabilization of disorganized thoughts, behavior, inability to sleep, hearing voices, patient was self isolating, patient has long history of being noncompliance with the medications and follow up appointments, patient requires further evaluation and stabilization in acute psychiatric unit. pt was seen in his room, pt appeared to be sleepy. as per self patient is more compliant with meds, no episodes of agitation or aggression, pt did not try to elope. pt's affect was more reactive, pt is more visible in the unit, less guarded, paranoid, very concrete thought processes, pt is more talkative, today was asking questions about Invega, pt seems to be improving, willing to take IM of Invega Sustenna. Patient reported that he tolerates medications well, no side effects observed or reported, aims 0, no EPS. insight is improving, impulses better controlled. mother is coming for the family meeting Friday. impression: Rule out schizophrenia Medication Change: No (invega tomorrow) Medical Record Reviewed: Yes Consults ordered or reviewed: patient was seen by medical team in the emergency room Mental Status Examination - Cognitive Function Orientation: Person, Place Memory: Intact Attention: Poor (some improvement) Concentration: Poor (some improvement) Association: Loose Fund of Knowledge: Poor (baseline) - Mood Mood: Depressed (I feel better") - Affect Affect: Flat - Formal Thought Process Formal Thought Process: Hallucinations (at times smiling inappropriately., seems to be responding), Delusions, Paranoia (less guarded), Other (thought process is better organized) - Suicidal Ideation Suicidal Ideation: No - Homicidal Ideation Homicidal Ideation: No Goal/Treatment Plan - Goal/Treatment Plan Need for Continued Stay: Remain at risks for inpatient hospitalization, Severe depression anxiety, Discharge may exacerbated symptoms, Severe functional impairment Progress Toward Problem(s) and Goals/Treatment Plan: Medical consult appreciated, see medical team note for more detailed info SW consultation for discharge plan and social issues Med management Risperdal 2mg po amhstimes a day for psychosis Cogentin 1mg amhs for possible EPS As needed medications Family meeting on 01/20/2018 invega could be given on Friday Follow up on labs Will monitor closely Pt was educated about risk/benefits and alternatives of medications, coping strategies (safety plan, suicide prevention), relapse prevention, importance of follow up with psychiatrist and therapist, stay away from drugs/alcohol/smoking Estimated Date of D/C: 01/20/18
[2018-01-19 07:13] VITALS: TEMP 97.8
--- NOTE | 2018-01-19 15:28 | PCM.PYCHPN ---
Psychiatric Progress Note - Psychiatric Progress Note Patient seen today, length of contact: 30 minutes Patient Chief Complaint: "I feel better..." Problems Identified/Issues Discussed: Suicide/ homicide prevention, past psychiatric h/o, current psychiatric symptoms , medical problems, risk/benefits and alternatives of medications, medications compliance, coping strategies, substance abuse h/o, relapse prevention, importance of follow up with psychiatrist and therapist, discharge plan. Medical Problems: see HPI Diagnostic Results: 01/12/18 12:41 01/12/18 12:41 Lab Results 01/13/18 07:15: Fasting Glucose 89, Triglycerides 74, Cholesterol 142, LDL Cholesterol Direct 71, HDL Cholesterol 46 01/13/18 07:15: RPR Nonreactive 01/13/18 07:15: TSH 3rd Generation 0.55 01/12/18 13:15: Urine Opiates Screen Negative, Urine Methadone Screen Negative, Ur Barbiturates Screen Negative, Ur Phencyclidine Scrn Negative, Ur Amphetamines Screen Negative, U Benzodiazepines Scrn Negative, U Oth Cocaine Metabols Negative, U Cannabinoids Screen Negative 01/12/18 13:15: Urine Color Yellow, Urine Appearance Clear, Urine pH 7.0, Ur Specific [place] <= 1.005, Urine Protein Negative, Urine Glucose (UA) Negative, Urine Ketones Negative, Urine Blood Negative, Urine Nitrate Negative, Urine Bilirubin Negative, Urine Urobilinogen 0.2, Ur Leukocyte Esterase Negative 01/12/18 12:41: Alcohol, Quantitative < 10 01/12/18 12:41: Salicylates < 1 L, Acetaminophen < 10.0 L 01/12/18 12:41: Free T4 1.56, TSH 3rd Generation 0.69 01/12/18 12:41: Sodium 138, Potassium 3.8, Chloride 102, Carbon Dioxide 24, Anion Gap 16, BUN 9, Creatinine 0.8, Est GFR ( Amer) > 60, Est GFR (Non- Af Amer) > 60, Random Glucose 155 H, Calcium 10.0, Phosphorus 2.8, Magnesium 2.1 , Total Bilirubin 0.8, AST 23, ALT 26, Alkaline Phosphatase 75, Total Protein 8.2, Albumin 5.0 H, Globulin 3.2, Albumin/Globulin Ratio 1.6 01/12/18 12:41: WBC 9.0, RBC 5.10, Hgb 14.6, Hct 43.2, MCV 84.7, MCH 28.6, MCHC 33.8, RDW 13.1, Plt Count 237, MPV 10.8, Gran % 74.0 H, Lymph % (Auto) 18.3 L, [place] % (Auto) 7.2 H, Eos % (Auto) 0.2 L, Baso % (Auto) 0.3, Gran # 6.62 H, Lymph # (Auto) 1.6, [place] # (Auto) 0.6, Eos # (Auto) 0.0, Baso # (Auto) 0.03 Vital Signs Temp Pulse Resp BP Pulse Ox 01/14/18 07:02 98.1 F 70 20 121/73 01/13/18 16:00 136 H 125/79 01/13/18 07:00 98 F 74 20 123/78 01/12/18 21:50 98.2 F 90 17 130/90 98 01/12/18 21:18 98.7 F 92 H 17 135/67 99 01/12/18 16:11 95 H 18 132/70 97 01/12/18 15:35 102 H 18 135/78 100 01/12/18 12:19 98.4 F 116 H 18 137/81 100 Temp Pulse Resp BP Pulse Ox 97.9 F 75 20 124/73 98 01/17/18 06:54 01/17/18 06:54 01/17/18 06:54 01/17/18 06:54 01/12/18 21:50 DSM 5 Symptoms Update: Patient is a 27 year old male with reported history of psychosis, 1 psychiatric admission at [facility] ([facility] patient was on injectable form of medications (pt and his family do not remember), pt has no major medical issues , patient brought in by his parents for evaluation and stabilization of disorganized thoughts, behavior, inability to sleep, hearing voices, patient was self isolating, patient has long history of being noncompliance with the medications and follow up appointments, patient requires further evaluation and stabilization in acute psychiatric unit. pt was seen next to the nursing station, well groomed, was calm, cooperative, socially appropriate. pt was willing to get Invega sustenna today, but it is confusion with the insurance info. [facility] [place] invega sustenna, RN was advised to fax it to the pharmacy. as per self patient is more compliant with meds, no episodes of agitation or aggression, was allowed to use his own clothes. pt's affect was more reactive, pt is more visible in the unit, less guarded, paranoid, concrete thought processes, pt is more talkative. Patient reported that he tolerates medications well, no side effects observed or reported, aims 0, no EPS. insight is improving, impulses better controlled. mother is coming for the family meeting Friday. impression: Rule out schizophrenia Medication Change: No Medical Record Reviewed: Yes Mental Status Examination - Cognitive Function Orientation: Person, Place Memory: Intact Attention: Poor (some improvement) Concentration: Poor (some improvement) Association: Loose Fund of Knowledge: Poor (baseline) - Mood Mood: Depressed (I feel better") - Affect Affect: Constricted (more reactive, mood congruent) - Formal Thought Process Formal Thought Process: Hallucinations (at times smiling inappropriately., seems to be responding), Delusions (denied), Paranoia (less guarded), Other ( thought process is better organized) - Suicidal Ideation Suicidal Ideation: No - Homicidal Ideation Homicidal Ideation: No Goal/Treatment Plan - Goal/Treatment Plan Need for Continued Stay: Remain at risks for inpatient hospitalization, Severe depression anxiety, Discharge may exacerbated symptoms, Severe functional impairment Progress Toward Problem(s) and Goals/Treatment Plan: Medical consult appreciated, see medical team note for more detailed info SW consultation for discharge plan and social issues Med management Risperdal 2mg po amhstimes a day for psychosis Cogentin 1mg amhs for possible EPS As needed medications Family meeting on 01/20/2018 invega could be given on Friday, clarification with insurance Follow up on labs Will monitor closely Pt was educated about risk/benefits and alternatives of medications, coping strategies (safety plan, suicide prevention), relapse prevention, importance of follow up with psychiatrist and therapist, stay away from drugs/alcohol/smoking Estimated Date of D/C: 01/20/18
[2018-01-19 16:57] VITALS: BP 123/81; PULSE 86
[2018-01-19] MEDS ORDERED: INVEGA 234 MG IM ONE ×2 (20:00)
--- NOTE | 2018-01-21 17:46 | PCM.PYCHDC ---
Mental Status Examination - Mental Status Examination Orientation: Person, Place, Situation, Time Memory: Intact Mood: Neutral Affect: Constricted (but reactive, mood congruent) Speech: Appropriate Attention: WNL Concentration: WNL Association: Loose (but with much improvement) Fund of Knowledge: WNL Formal Thought Process: No Impairment (pt still guarded, but not acutely psychotic, does not want to continue meds) Description of patient's judgement and insight: improved, but limited, pt did not want to continue with meds and f/u appts Psychotic Thoughts and Behaviors: pt guarded, but not acutely psychotic, denied thoughts of harming self or others, pt denied v/a/t hallucinations, no agitation or aggression Suicidal Ideation: No Current Homicidal Ideation?: No Plan: pt adamantly denied thoughts of harming self or others denied intent or plan. Discharge Summary - Discharge Note Reason for Hospitalization: patient was admitted to psychiatric inpatient unit for evaluation and sta bilization of disorganized thoughts, behavior, paranoia, inability to function. Psychiatric History (includes Medical, Family, Personal Hx): see HPI Laboratory Data: 01/12/18 12:41 01/12/18 12:41 Lab Results 01/13/18 07:15: Fasting Glucose 89, Triglycerides 74, Cholesterol 142, LDL Cholesterol Direct 71, HDL Cholesterol 46 01/13/18 07:15: RPR Nonreactive 01/13/18 07:15: TSH 3rd Generation 0.55 01/12/18 13:15: Urine Opiates Screen Negative, Urine Methadone Screen Negative, Ur Barbiturates Screen Negative, Ur Phencyclidine Scrn Negative, Ur Amphetamines Screen Negative, U Benzodiazepines Scrn Negative, U Oth Cocaine Metabols Negative, U Cannabinoids Screen Negative 01/12/18 13:15: Urine Color Yellow, Urine Appearance Clear, Urine pH 7.0, Ur Specific [place] <= 1.005, Urine Protein Negative, Urine Glucose (UA) Negative, Urine Ketones Negative, Urine Blood Negative, Urine Nitrate Negative, Urine Bilirubin Negative, Urine Urobilinogen 0.2, Ur Leukocyte Esterase Negative 01/12/18 12:41: Alcohol, Quantitative < 10 01/12/18 12:41: Salicylates < 1 L, Acetaminophen < 10.0 L 01/12/18 12:41: Free T4 1.56, TSH 3rd Generation 0.69 01/12/18 12:41: Sodium 138, Potassium 3.8, Chloride 102, Carbon Dioxide 24, Anion Gap 16, BUN 9, Creatinine 0.8, Est GFR ( Amer) > 60, Est GFR (Non- Af Amer) > 60, Random Glucose 155 H, Calcium 10.0, Phosphorus 2.8, Magnesium 2.1, Total Bilirubin 0.8, AST 23, ALT 26, Alkaline Phosphatase 75, Total Protein 8.2, Albumin 5.0 H, Globulin 3.2, Albumin/Globulin Ratio 1.6 01/12/18 12:41: WBC 9.0, RBC 5.10, Hgb 14.6, Hct 43.2, MCV 84.7, MCH 28.6, MCHC 33.8, RDW 13.1, Plt Count 237, MPV 10.8, Gran % 74.0 H, Lymph % (Auto) 18.3 L, [place] % (Auto) 7.2 H, Eos % (Auto) 0.2 L, Baso % (Auto) 0.3, Gran # 6.62 H, Lymph # (Auto) 1.6, [place] # (Auto) 0.6, Eos # (Auto) 0.0, Baso # (Auto) 0.03 Vital Signs Temp Pulse Resp BP Pulse Ox 01/19/18 16:00 86 123/81 01/19/18 07:13 97.8 F 62 20 106/71 01/18/18 06:59 97.7 F 63 20 106/68 01/17/18 06:54 97.9 F 75 20 124/73 01/16/18 16:00 99 H 114/65 01/16/18 07:07 97.8 F 68 20 125/69 01/15/18 16:00 117 H 119/82 01/15/18 07:16 98.5 F 85 20 135/83 01/14/18 07:02 98.1 F 70 20 121/73 01/13/18 16:00 136 H 125/79 01/13/18 07:00 98 F 74 20 123/78 01/12/18 21:50 98.2 F 90 17 130/90 98 01/12/18 21:18 98.7 F 92 H 17 135/67 99 01/12/18 16:11 95 H 18 132/70 97 09/17/18 15:35 102 H 18 135/78 100 01/12/18 12:19 98.4 F 116 H 18 137/81 100 Consultations:: List each consultation separately and include: 1. Reason for request. 2. Findings. 3. Follow-up Consultations: patient was seen by medical team in the emergency room Summary of Hospital Course include:: 1. Description of specific treatment plan utilized for patients during their course of treatmen. 2. Summarize the time- course for resolution of acute symptoms and/or regressed behaviors. 3. Describe issues identified and worked on during hospitalization. 4. Describe medication utilized. 5. Describe medical problems identified and treated. 6. Reassessment of suicide risk Summary of Hospital Course: Patient is a 27 year old male with reported history of psychosis, 1 psychiatric admission at [facility], patient was on injectable form of medications (pt and his family do not remember), pt has no major medical issues, patient brought in by his parents for evaluation and stabilization of disorganized thoughts, behavior, inability to sleep, hearing voices, patient was self isolating, patient has long history of being noncompliance with the medi cations and follow up appointments, patient required further evaluation and stabilization in acute psychiatric unit. see admission note for more detailed info. pt presented to be disorganized, was not able to calm down, patient presented to be guarded, paranoid, disorganized thoughts, patient required IM medication Geodon and Ativan because patient was in danger to self or others, tried to elope from the unit. pt was agreeing to be initiated on risperdal, and eventually pt wanted to be on Invega sustenna. pt got first shot on 01/19/18, on the day of d/c pt said he does not want to be on meds, and does not want to see psychiatrist in the community. family meeting with his mother took place. treatment course was discussed in details risk/benefits/alternatives of the medications were discussed with the patient as well as mother Patient still was refusing to follow up with a new psychiatrist. Mother called to patient's father and father as well as patient brother came over talk to the patient, patient was willing to follow up with outpatient provider reluctantly. Patient was advised if he will stop taking medication all of the symptoms will come back, patient and family verbalized her understanding. 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 Overall patient improved significantly, psychosis much better, no agitation or aggression, patient was participating in unit unit activities, was compliant with the medications, was asking intelligent questions. patient was stabilized on the following medication: Risperdal was initiated Invega sustenne 236mg IM on 01/19/18 was given, tolerated well Cogentin 1mg amhs for possible EPS risperdal was d/c at the time of d/c and tolerated all medications well, no side effects observed or reported, aims 0, no EPS 01/12/18 12:41 01/12/18 12:41 Lab Results 01/13/18 07:15: Fasting Glucose 89, Triglycerides 74, Cholesterol 142, LDL Cholesterol Direct 71, HDL Cholesterol 46 01/13/18 07:15: TSH 3rd Generation 0.55 01/12/18 13:15: Urine Opiates Screen Negative, Urine Methadone Screen Negative, Ur Barbiturates Screen Negative, Ur Phencyclidine Scrn Negative, Ur Amphetamines Screen Negative, U Benzodiazepines Scrn Negative, U Oth Cocaine Metabols Negative, U Cannabinoids Screen Negative 01/12/18 13:15: Urine Color Yellow, Urine Appearance Clear, Urine pH 7.0, Ur Specific [place] <= 1.005, Urine Protein Negative, Urine Glucose (UA) Negative, Urine Ketones Negative, Urine Blood Negative, Urine Nitrate Negative, Urine Bilirubin Negative, Urine Urobilinogen 0.2, Ur Leukocyte Esterase Negative 01/12/18 12:41: Alcohol, Quantitative < 10 01/12/18 12:41: Salicylates < 1 L, Acetaminophen < 10.0 L 01/12/18 12:41: Free T4 1.56, TSH 3rd Generation 0.69 01/12/18 12:41: Sodium 138, Potassium 3.8, Chloride 102, Carbon Dioxide 24, [place]i on Gap 16, BUN 9, Creatinine 0.8, Est GFR ( Amer) > 60, Est GFR (Non-Af Amer) > 60, Random Glucose 155 H, Calcium 10.0, Phosphorus 2.8, Magnesium 2.1, Total Bilirubin 0.8, AST 23, ALT 26, Alkaline Phosphatase 75, Total Protein 8.2, Albumin 5.0 H, Globulin 3.2, Albumin/Globulin Ratio 1.6 01/12/18 12:41: WBC 9.0, RBC 5.10, Hgb 14.6, Hct 43.2, MCV 84.7, MCH 28.6, MCHC 33.8, RDW 13.1, Plt Count 237, MPV 10.8, Gran % 74.0 H, Lymph % (Auto) 18.3 L, [place] % (Auto) 7.2 H, Eos % (Auto) 0.2 L, Baso % (Auto) 0.3, Gran # 6.62 H, Lymph # (Auto) 1.6, [place] # (Auto) 0.6, Eos # (Auto) 0.0, Baso # (Auto) 0.03 Vital Signs Temp Pulse Resp BP Pulse Ox 01/13/18 07:00 98 F 74 20 123/78 01/12/18 21:50 98.2 F 90 17 130/90 98 01/12/18 21:18 98.7 F 92 H 17 135/67 99 01/12/18 16:11 95 H 18 132/70 97 01/12/18 15:35 102 H 18 135/78 100 01/12/18 12:19 98.4 F 116 H 18 137/81 100 At the time of the discharge pt denied been depressed, denied thoughts of harming self or others, denied psychotic symptoms, and pt does not appeared to be psychotic, denied been anxious, pt is not in imminent danger to self or others, pt was referred to outpatient program,[facility], information about follow up appointment, time and address provided to the pt, it is patient responsibility to follow up with outpatient clinic, PMD as well as specialists (see SW note for more detailed information). In case pt will need to obtain results of studies pending at discharge pt was provided with contact information of Psychiatric Inpatient unit [phone] as well as Medical Record Department [phone]. pt was provided with prescriptions for all of medications (please see medication reconciliation form) Pt was educated about safety plan in case of worsening of symptoms or in case of suicidal or homicidal ideation call 911 or go to the nearest ER, also was educated to take meds as prescribed and stay away from drugs, pt verbalized understanding. - Diagnosis (1) Schizophrenia Status: Chronic Priority: Medium - Final Diagnosis (DSM 5) Condition upon Discharge: GOOD Disposition: HOME/ ROUTINE Follow-up Treatment Plan: At the time of the discharge pt denied been depressed, denied thoughts of harming self or others, denied psychotic symptoms, and pt does not appeared to be psychotic, denied been anxious, pt is not in imminent danger to self or others, pt was referred to outpatient program,[facility], information about follow up appointment, time and address provided to the pt, it is patient responsibility to follow up with outpatient clinic, PMD as well as specialists (see SW note for more detailed information). In case pt will need to obtain results of studies pending at discharge pt was provided with contact information of Psychiatric Inpatient unit [phone] as well as Medical Record Department [phone]. pt was provided with prescriptions for all of medications (please see medication reconciliation form) Pt was educated about safety plan in case of worsening of symptoms or in case of suicidal or homicidal ideation call 911 or go to the nearest ER, also was educated to take meds as prescribed and stay away from drugs, pt verbalized u nderstanding. Prescriptions/Medication Reconciliation: Paliperidone [Invega Sustenna] 117 mg IM Q30D #1 ser Benztropine [Cogentin] 1 mg PO AMHS #30 tab DiphenhydrAMINE [Benadryl] 50 mg PO HS #14 cap Loratadine [Claritin] 10 mg PO DAILY #7 tab Paliperidone Palmitate [Invega Sustenna] 156 mg IM ONCE #1 ser - Smoking Cessation Smoking Cessation Medication prescribed: No Reason for not providing: denied smoking - Antipsychotic Medications Pt discharged on 2 or more routine antipsychotic medications: No
== END 2018-01-20 14:47 | disposition home or self-care (01) | DRG 885 ==
LOC: ED 11:55 → ERH 16:08 → PSYC 21:47
PROVIDERS: ADMIT Psychiatry & Neurology Psychiatry; ATTEND Psychiatry & Neurology Psychiatry
DX: F20.9 Schizophrenia, unspecified (principal); F12.90 Cannabis use, unspecified, uncomplicated; G47.00 Insomnia, unspecified; Z91.14 Patient's other noncompliance with medication regimen; Z91.19 Patient's noncompliance with other medical treatment and regimen

== ENCOUNTER 2018-08-15 21:16 | Inpatient (IN) | payer MEDICAID, OTHER ==
--- NOTE | 2018-08-15 21:32 | ED PDOC ---
Arrival/HPI - General Historian: Patient, Family, EMS, Police - History of Present Illness Narrative History of Present Illness (Text): 08/15/18 21:29 28 y/o male, no significant pmh, psychiatric history including schizophrenia/psychosis, biba with the police and family because of the irregular behavior at home this evening. Pt. came home with his friend, starting to cry and smiling without sound, not speaking, not compliant to his psy meds as per the family, no homicidal or suicidal ideation, no auditory or visual hallucination, no numbness or tingling, no other medical or psychological complaints. <Mariano Whitley - Last Filed: 08/15/18 23:08> Past Medical History - Provider Review Nursing Documentation Reviewed: Yes - Past History Past History: No Previous - Infectious Disease Hx of Infectious Diseases: None - Cardiac Hx Cardiac Disorders: No Hx Hypertension: No - Pulmonary Hx Respiratory Disorders: No Hx Tuberculosis: No - Neurological Hx Neurological Disorder: No HX Cerebrovascular Accident: No Hx Seizures: No - HEENT Hx HEENT Disorder: No - Renal Hx Renal Disorder: No - Endocrine/Metabolic Hx Endocrine Disorders: No - Hematological/Oncological Hx Blood Disorders: No Hx Cancer: No - Integumentary Hx Dermatological Disorder: No - Musculoskeletal/Rheumatological Hx Musculoskeletal Disorders: No - Gastrointestinal Hx Gastrointestinal Disorders: No - Genitourinary/Gynecological Hx Genitourinary Disorders: No Hx Sexually Transmitted Diseases: No - Psychiatric Hx Schizophrenia: Yes Hx Substance Use: Yes - Anesthesia Hx Anesthesia: No <Mariano Whitley - Last Filed: 08/15/18 23:08> Family/Social History - Physician Review Nursing Documentation Reviewed: Yes Family/Social History: Unknown Family HX Smoking Status: Never Smoked Hx Alcohol Use: No Hx Substance Use: Yes Substance used: marijuana, <Mariano Whitley - Last Filed: 08/15/18 23:08> Allergies/Home Meds <Salas Sellers - Last Filed: 08/15/18 22:46> <Mariano Whitley - Last Filed: 08/15/18 23:08> Allergies/Adverse Reactions: Allergies No Known Allergies Allergy (Verified 01/12/18 22:53) Review of Systems - Review of Systems Constitutional: absent: Fatigue, Fevers Eyes: absent: Vision Changes ENT: absent: Hearing Changes Respiratory: absent: SOB, Cough Cardiovascular: absent: Chest Pain Gastrointestinal: absent: Abdominal Pain, Diarrhea, Nausea, Vomiting Musculoskeletal: absent: Arthralgias, Back Pain Neurological: absent: Headache, Dizziness Psychiatric: absent: Anxiety, Depression, Suicidal Ideation <Mariano Whitley - Last Filed: 08/15/18 23:08> Physical Exam Vital Signs Temp Pulse Resp BP Pulse Ox 08/15/18 21:44 98.2 F 116 H 18 123/70 95 <Salas Sellers - Last Filed: 08/15/18 22:46> - Systems Exam Head: Present: Atraumatic, Normocephalic Pupils: Present: PERRL Extroacular Muscles: Present: EOMI Conjunctiva: Present: Normal Ears: Present: NORMAL TM, Normal Canal. No: Erythema Mouth: Present: Moist Mucous Membranes Pharnyx: No: ERYTHEMA, EXUDATE, TONSILS ENLARGED Nose (External): Present: Atraumatic. No: Abrasion, Contusion, Laceration Nose (Internal): Present: Normal Inspection, No Active Bleeding. No: R hinorrhea, Septal Hematoma, Epistaxis Neck: Present: Normal Range of Motion, Trachea Midline. No: Meningeal Signs, MIDLINE TENDERNESS, Paraspinal Tenderness, Lymphadenopathy Respiratory/Chest: Present: Clear to Auscultation, Good Air Exchange. No: Respiratory Distress, Accessory Muscle Use, Wheezes, Decreased Breath Sounds, Rales, Retracting, Rhonchi, Tachypneic, Tender to Palpation Cardiovascular: Present: Regular Rate and Rhythm, Normal S1, S2. No: Murmurs Abdomen: Present: Normal Bowel Sounds. No: Tenderness, Distention, Peritoneal Signs, Rebound, Guarding Back: Present: Normal Inspection Upper Extremity: Present: Normal Inspection, Normal ROM, NORMAL PULSES, Neurovascularly Intact, Capillary Refill < 2s. No: Cyanosis, Edema, Deformity Lower Extremity: Present: Normal Inspection, NORMAL PULSES, Normal ROM, Neurovascularly Intact, Capillary Refill < 2 s. No: Edema, CALF TENDERNESS, Loy's Sign, Tenderness, Swelling, Deformity Neurological: Present: GCS=15, CN II-XII Intact, Speech Normal, Motor Func Grossly Intact, Normal Cerebellar Funct, Gait Normal, Memory Normal Skin: Present: Warm, Dry, Normal Color. No: Rashes Psychiatric: Present: Alert, Oriented x 3 <Mariano Whitley - Last Filed: 08/15/18 23:08> Medical Decision Making - Lab Interpretations Lab Results: Troponin I < 0.01 ng/mL 08/15/18 21:40 Total Bilirubin 0.6 mg/dL (0.2-1.3) 08/15/18 21:40 AST 24 U/L (17-59) 08/15/18 21:40 ALT 9 U/L (7-56) 08/15/18 21:40 Alkaline Phosphatase 77 U/L (38-126) 08/15/18 21:40 Total Protein 8.8 g/dL (5.8-8.3) H 08/15/18 21:40 Albumin 5.1 g/dL (3.0-4.8) H 08/15/18 21:40 Globulin 3.7 gm/dL 08/15/18 21:40 Albumin/Globulin Ratio 1.4 (1.1-1.8) 08/15/18 21:40 Urine Color Yellow (YELLOW) 08/15/18 22:30 Urine Appearance Sl cloudy (CLEAR) 08/15/18 22:30 Urine pH 6.5 (4.7-8.0) 08/15/18 22:30 Ur Specific [place] 1.020 (1.005-1.035) 08/15/18 22:30 Urine Protein Trace mg/dL (<30 mg/dL) H 08/15/18 22:30 Urine Glucose (UA) Negative mg/dL (NEGATIVE) 08/15/18 22:30 Urine Ketones 15 mg/dL (NEGATIVE) H 08/15/18 22:30 Urine Blood Negative (NEGATIVE) 08/15/18 22:30 Urine Nitrate Negative (NEGATIVE) 08/15/18 22:30 Urine Bilirubin Negative (NEGATIVE) 08/15/18 22:30 Urine Urobilinogen 1.0 E.U./dL (<1 E.U./dL) H 08/15/18 22:30 Ur Leukocyte Esterase Negative Edith/uL (NEGATIVE) 08/15/18 22:30 - RAD Interpretation Radiology Orders: 08/15/18 21:28 CHEST PORTABLE [RAD] Stat <Salas Sellers - Last Filed: 08/15/18 22:46> ED Course and Treatment: 08/15/18 21:33 -labs -ekg -cxr -KOFI Morillo contacted, will come to evaluate the patient 08/15/18 22:20 -EKG: ST @ 112 BPM, no ST elevation or depression, no T wave inversion, normal ME/QRS/QT intervals. -Chest xray -Labs are nonsignificant -UA show no UTI -UDS -PERC is negative -HEART score is low -Pt. is medically clear and stable this time for psychiatric evaluation 08/15/18 23:05 -Pt. evaluated by KOFI Morillo, recommend to admit to Dr. Iesha Davila - RAD Interpretation Radiology Orders: 08/15/18 21:28 CHEST PORTABLE [RAD] Stat - EKG Interpretation EKG Interpretation (Text): 08/15/18 21:54 ST @ 112 BPM, no ST elevation or depression, no T wave inversion, normal ME/QRS/QT intervals. Interpreted by ED Physician: Yes Type: 12 lead EKG <Mariano Whitley - Last Filed: 08/15/18 23:08> - PA / CONSTRUCTION PROJECT ENGINEER / Resident Statement THERESE has reviewed & agrees with the documentation as recorded. THERESE has examined the patient and agrees with the treatment plan. <Salas Sellers - Last Filed: 08/15/18 22:46> - PA / CONSTRUCTION PROJECT ENGINEER / Resident Statement THERESE has reviewed & agrees with the documentation as recorded. THERESE has examined the patient and agrees with the treatment plan. <Mariano Whitley - Last Filed: 08/15/18 23:08> Disposition/Present on Arrival <Salas Sellers - Last Filed: 08/15/18 22:46> - Present on Arrival Any Indicators Present on Arrival: No History of DVT/PE: No History of Uncontrolled Diabetes: No Urinary Catheter: No History of Decub. Ulcer: No History Surgical Site Infection Following: None - Disposition Have Diagnosis and Disposition been Completed?: Yes Disposition Time: 23:07 Patient Plan: Admission <Mariano Whitley - Last Filed: 08/15/18 23:08> - Disposition Diagnosis: Psychosis, Schizophrenia Disposition: HOSPITALIZED Condition: STABLE Referrals: FAMILY PROVIDER,NO [Non-Staff] - Follow up with primary
[2018-08-15 21:45] VITALS: O2SAT 95
[2018-08-15 22:05] LABS: BASO # 0.01 K/mm3 (0.0-2.0); BASO % 0.1 % (0.0-3.0); EOS % 0.2 % (1.5-5.0); LYMPH # 2.2 (1.2-3.4); MEAN CORPUSCULAR HEMOGLOBIN 28.4 pg (25.0-35.0); MEAN CORPUSCULAR HGB CONC 33.4 g/dl (31.0-37.0); MEAN PLATELET VOLUME 10.7 fl (7.0-11.0); MONO # 0.6 (0.1-0.6); MONO % 6.8 % (1.0-6.0); RBC 5.28 10^6/uL (3.5-6.1); RED CELL DISTRIBUTION WIDTH 13.1 % (11.5-14.5)
[2018-08-15 22:06] LABS: ALB/GLOB RATIO 1.4 (1.1-1.8); ALBUMIN 5.1 g/dL (3.0-4.8); ALT/SGPT 9 U/L (7-56); AST/SGOT 24 U/L (17-59); BLOOD UREA NITROGEN 16 mg/dL (7-21); CALCIUM 9.9 mg/dL (8.4-10.5); GFR NON-AFRICAN AMERICAN > 60
[2018-08-15 22:43] LABS: PH,URINE 6.5 (4.7-8.0); URINE BILIRUBIN NEGATIVE (NEGATIVE); URINE BLOOD NEGATIVE (NEGATIVE); URINE COLOR YELLOW (YELLOW); URINE GLUCOSE (UA) NEGATIVE (NEGATIVE); URINE LEUKOCYTE ESTERASE NEGATIVE Leu/uL (NEGATIVE); URINE PROTEIN TRACE mg/dL (<30 mg/dL)
[2018-08-15 22:44] LABS: URINE APPEARANCE SL CLOUDY (CLEAR)
[2018-08-15 22:50] LABS: URINE AMORPHOUS SEDIMENT FEW /hpf; URINE BACTERIA MANY /hpf; URINE RBC 0 - 2 /hpf (0-2); URINE WBC 0 - 2 /hpf (0-6)
[2018-08-15 23:50] LABS: BARBITURATES, UR NEGATIVE (NEGATIVE); BENZODIAZEPINES, UR NEGATIVE (NEGATIVE); OPIATES, UR NEGATIVE (NEGATIVE); PHENCYCLIDINE, UR NEGATIVE (NEGATIVE)
--- NOTE | 2018-08-16 04:41 | PCM.BM ---
Treatment Plan Problems - Problems identified on initial assessmt alteration in thoughts Date Initiated: 08/16/18 Time Initiated: 00:00 Assessment reference: NA Status: Active Comment: thought-blocking; internal stimuli non-compliance Date Initiated: 08/16/18 Time Initiated: 00:00 Assessment reference: NA Status: Active Comment: " I don't need any medication". Treatment assets and liabiliti Patient Assests: ADL independent, good support system Patient Liabilities: financial problems, relationship conflicts, substance abuse
--- NOTE | 2018-08-16 04:44 | PCM.BM ---
<Frank Ortegaeen - Last Filed: 08/16/18 04:45> Treatment Plan Problems - Problems identified on initial assessmt alteration in thoughts Date Initiated: 08/16/18 Time Initiated: 00:00 Assessment reference: NA Status: Active Comment: thought-blocking; internal stimuli non-compliance Date Initiated: 08/16/18 Time Initiated: 00:00 Assessment reference: NA Status: Active Comment: " I don't need any medication". Treatment assets and liabiliti Patient Assests: ADL independent, good support system Patient Liabilities: relationship conflicts, substance abuse ([place]J) - Milieu Protocol Maintain good personal hygiene: daily Encourage regular showers, daily Remind patient to perform daily oral care Conduct patient checks and document Observation sheet: Q15 minutes Maintain personal safety: every shift Educate patient to report safety concerns to staff, every shift Monitor environment for contraband/sharps Medication safety: Monitor for expected outcome, potential side effects: every shift, Assess barriers to learning: every shift, Assess readiness for medication education: every shift <Vanda Haynes - Last Filed: 08/16/18 10:12> - Diagnosis (1) Schizophrenia Status: Chronic Interventions: * Group, milieu and supportive tx * Risperdal 1 mg AM & HS with Cogentin 1 mg AM & HS for EPS prophylaxis. Will try to engage and encourage patient to cooperative with recommendations * Consider decanoate however it has not been effective for compliance in the past * Haldol 5, Benadryl 25 mg and Ativan 2 mg po/IM prns * Trazodone 50 mg HS 08/16/18 10:12
--- NOTE | 2018-08-16 04:50 | PCM.BM ---
Treatment assets and liabiliti Patient Assests: ADL independent, good support system
[2018-08-16 07:38] LABS: GLUCOSE,FASTING 93 mg/dL (65-110); HDL CHOLESTEROL 41 mg/dL (29-60)
[2018-08-16 07:48] LABS: LDL CHOLESTEROL 120 mg/dL (0-129)
[2018-08-16 07:55] LABS: FREE T4 1.35 ng/dL (0.78-2.19)
--- NOTE | 2018-08-16 09:11 | CARD ---
APPROVED REPORT Date of service: 08/15/2018 EKG Measurement Heart [id number] <Conclusion> Sinus tachycardia Otherwise normal ECG
--- NOTE | 2018-08-16 10:12 | PCM.PSYCH ---
Initial Psychiatric Evaluation - Initial Psychiatric Evaluation Type of Admission: Voluntary Legal Status: Capacity History of Present Illness and Precipitating Events: Patient is a 28 year old Malay male with reported history of Schizophrenia, 2 psychiatric admissions, {01/12/18-01/20/18 at [facility] and 2016 admission to [facility]}, repeated history of noncompliance with PO meds and injectables who was BIBA with the police and family because of the bizarre behavior at home yesterday evening 08/15/18. Most of patient's information was obtained from review of his chart as patient was not cooperative with an interview this morning. He was also resistant and uncooperative with floor staff upon his arrival last night, refusing to take prescribed medications. Records indicate that patient came home yesterday evening and started to cry and smile without speaking. PES clinician spoke with patient's mother Ivelisse Manzo and she presented a video of patient screaming, laughing and punching his chest. Collateral verbalized that when patient decompensates he primarily laughs and yells. Patient was reluctant to sign in voluntarily however did so to avoid possible involuntary commitment to [facility]. Nursing admission note indicates that patient was preoccupied and staring inappropriately when he arrived to the floor. He admitted to signing the consent because "[place] Police forced me". Patient refused Risperdal and cogentin last night indicating he didn't need medication. Patient was pacing and becoming increasingly upset. Eventually he was given Haldol 5 mg and Ativan 2 mg IM for agitated behavior. This is very similar to his his prior admission in which he required Geodon IM on his first night for agitation. PSYCHIATRIC HISTORY {01/12/18-01/20/18} at [facility]. Patient brought in by his parents for evaluation and stabilization of disorganized thoughts,inability to sleep, h earing voices, self isolating. Pt presented to be disorganized, guarded, paranoid and agitated when arriving on the unit. He tried to elope from the unit and required IM medication Geodon and Ativan because patient was in danger to self or others. Discharged on: Invega Sustenna 156 mg IM ONCE on 01/19/18 Invega Sustenna 117 mg IM Q30D Cogentin 1 mg PO AMHS Benadryl 50 mg PO HS {2016} at [facility] and was put on Invega Sustenna. Collateral (patient's mother) verbalized that patient was linked to [facility] outpatient program. He was prescribed invega but refused to continue treatment and withdrew from [facility] outpatient program. Collateral stated that patient has not been on his medication for months. Patient was discharged 01/20/18 but notably very reluctant to agree to f/u with outpatient recommendations at discharge at that time. SOCIAL HISTORY Patient is single. Resides with family. UDS only + for cannabis The patient failed the outpatient lower level of care: Yes Current Medications: Active Medications Generic Name Dose Route Start Last Admin Trade Name Freq PRN Reason Stop Dose Admin Acetaminophen 650 mg 08/15/18 23:54 Tylenol 325mg Tab PO Q4H PRN Pain, moderate (4-7) Benztropine Mesylate 1 mg 08/16/18 08:00 Cogentin PO DAILY NICOLETTE Diphenhydramine HCl 25 mg 08/15/18 23:51 Benadryl PO HS PRN Insomnia Haloperidol 5 mg 08/16/18 00:00 Haldol PO Q6 PRN Agitation Protocol Haloperidol Lactate 5 mg 08/16/18 00:46 08/16/18 00:40 Haldol IM 5 mg Q6 PRN Administration Agitation Protocol Lorazepam 2 mg 08/16/18 00:04 Ativan PO Q6 PRN Agitation Protocol Lorazepam 2 mg 08/16/18 00:09 08/16/18 00:40 Ativan IM 2 mg Q6H PRN Administration Anxiety Protocol Risperidone 1 mg 08/16/18 08:00 Risperdal Tab PO DAILY NICOLETTE Protocol Present on Admission - Present on Admission Any Indicators Present on Admission: No - Notes: Notes:: Please refer to ER report dated 08/15/18 for ROS and physical exam findings. Review of Systems - Review of Systems Review of Systems: Please refer to ER report dated 08/15/18 for ROS and physical exam findings. - Constitutional Constitutional: As Per HPI - EENT Eyes: As Per HPI Ears: As Per HPI Nose/Mouth/Throat: As Per HPI - Cardiovascular Cardiovascular: As Per HPI - Respiratory Respiratory: As Per HPI - Gastrointestinal Gastrointestinal: As Per HPI - Genitourinary Genitourinary: As Per HPI - Reproductive: Male Reproductive:Male: As Per HPI - Musculoskeletal Musculoskeletal: As Per HPI - Integumentary Integumentary: As Per HPI - Neurological Neurological: As Per HPI - Psychiatric Psychiatric: As Per HPI - Endocrine Endocrine: As Per HPI - Hematologic/Lymphatic Hematologic: As Per HPI Past Patient History - Past Psychiatric History Prior Professional Help: See HPI - PSYCHIATRIC Hx Substance Use: No (denies) - Infectious Disease Hx of Infectious Diseases: None - CARDIAC Hx Cardiac Disorders: No Hx Hypertension: No - PULMONARY Hx Respiratory Disorders: No Hx Tuberculosis: No - NEUROLOGICAL Hx Neurological Disorder: No HX Cerebrovascular Accident: No Hx Seizures: No - HEENT Hx HEENT Problems: No - RENAL Hx Chronic Kidney Disease: No Hx Kidney Stones: No - ENDOCRINE/METABOLIC Hx Endocrine Disorders: No - HEMATOLOGICAL/ONCOLOGICAL Hx Blood Disorders: No Hx Cancer: No Hx Human Immunodeficiency Virus (HIV): No - INTEGUMENTARY Hx Dermatological Problems: No - MUSCULOSKELETAL/RHEUMATOLOGICAL Hx Musculoskeletal Disorders: No - GASTROINTESTINAL Hx Gastrointestinal Disorders: No - GENITOURINARY/GYNECOLOGICAL Hx Genitourinary Disorders: No Hx Sexually Transmitted Disorders: No - SURGICAL HISTORY Hx Surgeries: No - ANESTHESIA Hx Anesthesia: No - Medical/Surgical History Reviewed & confirmed: by ri Med Allergies/Adverse Reactions: Allergies Allergy/AdvReac Type Severity Reaction Status Date / Time No Known Allergies Allergy Verified 01/12/18 22:53 Mental Status Examination - Personal Presentation Personal Presentation: Looks stated age - Affect Affect: Constricted, Flat - Motor Activity Motor Activity: Psychomotor Agitation (Patient required Haldol & Ativan IM prn when he arrived on the unit) - Reliability in Providing Information Reliability in Providing Information: Poor, due to alteration in thoughts - Speech Speech: Disorganized - Formal Thought Process Formal Thought Process: Hallucinations, Delusions, Paranoia, Loosening of associations - Cognitive Functions Orientation: Person Sensorium: Other (Patient refused to engage) Attention/Concentration: Easily distracted Abstract Thinking: [place] Estimate of Intelligence: Average Judgement: Imparied, as evidence by: Lack of insight into illness - Risk Risk: Diminished functioning - Strength & Assets Inventory Strength & Assets Inventory: Family support Psychiatric Physical Exam - Physical Exam Reviewed and confirmed: Emergency Department Physical Exam (Please refer to ER report dated 08/15/18 for ROS and physical exam findings.) Results - Vital Signs Recent Vital Signs: Last Vital Signs Temp 98.7 F 08/16/18 01:34 Pulse 108 H 08/16/18 01:41 Resp 18 08/16/18 01:41 BP 125/77 08/16/18 01:34 Pulse Ox 95 08/15/18 21:44 - Labs Result Diagrams: 08/15/18 21:40 08/15/18 21:40 Labs: Laboratory Results - last 24 hr 08/15/18 08/15/18 08/15/18 21:40 21:40 21:40 WBC 9.0 RBC 5.28 Hgb 15.0 Hct 44.9 MCV 85.0 MCH 28.4 MCHC 33.4 RDW 13.1 Plt Count 278 MPV 10.7 Neut % (Auto) 68.9 H Lymph % (Auto) 24.0 [place] % (Auto) 6.8 H Eos % (Auto) 0.2 L Baso % (Auto) 0.1 Lymph # (Auto) 2.2 [place] # (Auto) 0.6 Eos # (Auto) 0.0 Baso # (Auto) 0.01 Absolute Neuts (auto) 6.17 Sodium 140 Potassium 4.1 Chloride 99 Carbon Dioxide 25 Anion Gap 20 BUN 16 Creatinine 1.0 Est GFR ( Amer) > 60 Est GFR (Non-Af Amer) > 60 Random Glucose 104 Calcium 9.9 Total Bilirubin 0.6 AST 24 ALT 9 Alkaline Phosphatase 77 Troponin I Total Protein 8.8 H Albumin 5.1 H Globulin 3.7 Albumin/Globulin Ratio 1.4 Urine Color Urine Appearance Urine pH Ur Specific [place] Urine Protein Urine Glucose (UA) Urine Ketones Urine Blood Urine Nitrate Urine Bilirubin Urine Urobilinogen Ur Leukocyte Esterase Urine RBC Urine WBC Ur Epithelial Cells Amorphous Sediment Urine Bacteria Urine Other Urine Opiates Screen Urine Methadone Screen Ur Barbiturates Screen Ur Phencyclidine Scrn Ur Amphetamines Screen U Benzodiazepines Scrn U Oth Cocaine Metabols U Cannabinoids Screen Alcohol, Quantitative < 10 08/15/18 08/15/18 08/15/18 21:40 22:30 22:30 WBC RBC Hgb Hct MCV MCH MCHC RDW Plt Count MPV Neut % (Auto) Lymph % (Auto) [place] % (Auto) Eos % (Auto) Baso % (Auto) Lymph # (Auto) [place] # (Auto) Eos # (Auto) Baso # (Auto) Absolute Neuts (auto) Sodium Potassium Chloride Carbon Dioxide Anion Gap BUN Creatinine Est GFR ( Amer) Est GFR (Non-Af Amer) Random Glucose Calcium Total Bilirubin AST ALT Alkaline Phosphatase Troponin I < 0.01 Total Protein Albumin Globulin Albumin/Globulin Ratio Urine Color Yellow Urine Appearance Sl cloudy Urine pH 6.5 Ur Specific [place] 1.020 Urine Protein Trace H Urine Glucose (UA) Negative Urine Ketones 15 H Urine Blood Negative Urine Nitrate Negative Urine Bilirubin Negative Urine Urobilinogen 1.0 H Ur Leukocyte Esterase Negative Urine RBC 0 - 2 Urine WBC 0 - 2 Ur Epithelial Cells None Amorphous Sediment Few Urine Bacteria Many Urine Other Uyeast Urine Opiates Screen Negative Urine Methadone Screen Negative Ur Barbiturates Screen Negative Ur Phencyclidine Scrn Negative Ur Amphetamines Screen Negative U Benzodiazepines Scrn Negative U Oth Cocaine Metabols Negative U Cannabinoids Screen Positive H Alcohol, Quantitative - Impressions Impression: Please refer to ER report dated 08/15/18 for ROS and physical exam findings. DSM Plan - DSM 5 DSM 5 Diagnosis: Schizophrenia - Recommended/Plan of Treatment Treatment Recommendations and Plan of Treatment: * Group, milieu and supportive tx * Risperdal 1 mg AM & HS with Cogentin 1 mg AM & HS for EPS prophylaxis. Will try to engage and encourage patient to cooperative with recommendations * Consider decanoate however it has not been effective for compliance in the p ast * Haldol 5, Benadryl 25 mg and Ativan 2 mg po/IM prns * Trazodone 50 mg HS * Vitals reviewed and noted below: Selected Entries 08/16/18 08/16/18 08/16/18 01:34 01:41 07:12 Temperature 97.4 F L Pulse Rate 108 H 115 H Pulse Rate [ 108 H Radial] Respiratory 18 20 Rate Blood Pressure 125/77 121/79 * Please refer to ER report dated 08/15/18 for ROS and physical exam findings. 08/15/18 22:20 -EKG: ST @ 112 BPM, no ST elevation or depression, no T wave inversion, normal GA/QRS/QT intervals. * Admission labs noted below: Laboratory Tests 08/15/18 08/15/18 08/15/18 21:40 21:40 21:40 WBC 9.0 RBC 5.28 Hgb 15.0 Hct 44.9 MCV 85.0 MCH 28.4 MCHC 33.4 RDW 13.1 Plt Count 278 MPV 10.7 Neut % (Auto) 68.9 H Lymph % (Auto) 24.0 [place] % (Auto) 6.8 H Eos % (Auto) 0.2 L Baso % (Auto) 0.1 Lymph # (Auto) 2.2 [place] # (Auto) 0.6 Eos # (Auto) 0.0 Baso # (Auto) 0.01 Absolute Neuts (auto) 6.17 Sodium 140 Potassium 4.1 Chloride 99 Carbon Dioxide 25 Anion Gap 20 BUN 16 Creatinine 1.0 Est GFR ( Amer) > 60 Est GFR (Non-Af Amer) > 60 Random Glucose 104 Fasting Glucose Calcium 9.9 Total Bilirubin 0.6 AST 24 ALT 9 Alkaline Phosphatase 77 Troponin I Total Protein 8.8 H Albumin 5.1 H Globulin 3.7 Albumin/Globulin Ratio 1.4 Triglycerides Cholesterol LDL Cholesterol Direct HDL Cholesterol Free T4 TSH 3rd Generation Urine Color Urine Appearance Urine pH Ur Specific [place] Urine Protein Urine Glucose (UA) Urine Ketones Urine Blood Urine Nitrate Urine Bilirubin Urine Urobilinogen Ur Leukocyte Esterase Urine RBC Urine WBC Ur Epithelial Cells Amorphous Sediment Urine Bacteria Urine Other Urine Opiates Screen Urine Methadone Screen Ur Barbiturates Screen Ur Phencyclidine Scrn Ur Amphetamines Screen U Benzodiazepines Scrn U Oth Cocaine Metabols U Cannabinoids Screen Alcohol, Quantitative < 10 08/15/18 08/15/18 08/15/18 21:40 22:30 22:30 WBC RBC Hgb Hct MCV MCH MCHC RDW Plt Count MPV Neut % (Auto) Lymph % (Auto) [place] % (Auto) Eos % (Auto) Baso % (Auto) Lymph # (Auto) [place] # (Auto) Eos # (Auto) Baso # (Auto) Absolute Neuts (auto) Sodium Potassium Chloride Carbon Dioxide Anion Gap BUN Creatinine Est GFR ( Amer) Est GFR (Non-Af Amer) Random Glucose Fasting Glucose Calcium Total Bilirubin AST ALT Alkaline Phosphatase Troponin I < 0.01 Total Protein Albumin Globulin Albumin/Globulin Ratio Triglycerides Cholesterol LDL Cholesterol Direct HDL Cholesterol Free T4 TSH 3rd Generation Urine Color Yellow Urine Appearance Sl cloudy Urine pH 6.5 Ur Specific [place] 1.020 Urine Protein Trace H Urine Glucose (UA) Negative Urine Ketones 15 H Urine Blood Negative Urine Nitrate Negative Urine Bilirubin Negative Urine Urobilinogen 1.0 H Ur Leukocyte Esterase Negative Urine RBC 0 - 2 Urine WBC 0 - 2 Ur Epithelial Cells None Amorphous Sediment Few Urine Bacteria Many Urine Other Uyeast Urine Opiates Screen Negative Urine Methadone Screen Negative Ur Barbiturates Screen Negative Ur Phencyclidine Scrn Negative Ur Amphetamines Screen Negative U Benzodiazepines Scrn Negative U Oth Cocaine Metabols Negative U Cannabinoids Screen Positive H Alcohol, Quantitative 08/16/18 08/16/18 07:00 07:00 WBC RBC Hgb Hct MCV MCH MCHC RDW Plt Count MPV Neut % (Auto) Lymph % (Auto) [place] % (Auto) Eos % (Auto) Baso % (Auto) Lymph # (Auto) [place] # (Auto) Eos # (Auto) Baso # (Auto) Absolute Neuts (auto) Sodium Potassium Chloride Carbon Dioxide Anion Gap BUN Creatinine Est GFR ( Amer) Est GFR (Non-Af Amer) Random Glucose Fasting Glucose 93 Calcium Total Bilirubin AST ALT Alkaline Phosphatase Troponin I Total Protein Albumin Globulin Albumin/Globulin Ratio Triglycerides 65 Cholesterol 182 LDL Cholesterol Direct 120 HDL Cholesterol 41 Free T4 1.35 TSH 3rd Generation 0.40 L Urine Color Urine Appearance Urine pH Ur Specific [place] Urine Protein Urine Glucose (UA) Urine Ketones Urine Blood Urine Nitrate Urine Bilirubin Urine Urobilinogen Ur Leukocyte Esterase Urine RBC Urine WBC Ur Epithelial Cells Amorphous Sediment Urine Bacteria Urine Other Urine Opiates Screen Urine Methadone Screen Ur Barbiturates Screen Ur Phencyclidine Scrn Ur Amphetamines Screen U Benzodiazepines Scrn U Oth Cocaine Metabols U Cannabinoids Screen Alcohol, Quantitative Projected ELOS: 7 days Prognosis: guarded Discharge Plan and Discharge Criteria: Outpatient services at [facility]
--- NOTE | 2018-08-16 10:30 | RAD ---
Date of service: 08/15/2018 HISTORY: psy, need medical clearance COMPARISON: 01/12/2018 TECHNIQUE: 1 view obtained. FINDINGS: LUNGS: No active pulmonary disease. PLEURA: No significant pleural effusion identified, no pneumothorax apparent. CARDIOVASCULAR: No aortic atherosclerotic calcification present. Normal cardiac size. No pulmonary vascular congestion. OSSEOUS STRUCTURES: No significant abnormalities. VISUALIZED UPPER ABDOMEN: Normal. OTHER FINDINGS: None. IMPRESSION: No active disease.
--- NOTE | 2018-08-16 12:36 | CP.PCM.CON ---
<Andra Krause - Last Filed: 08/16/18 12:30> History of Present Illness - History of Present Illness History of Present Illness: INTERNAL MEDICINE CONSULT NOTE FOR DR. CATARINO Krause PGY1 28 y/o M with no significant PMH bib police d/t "irregular behavior at home." Pt was noted to be crying/smiling without making sounds or speaking. Internal medicine consulted for "admission." Upon interview, pt is seen resting comfortably in psychiatric unit. ROS is limited however pt denies any complaints. PMH: Denies All: NKDA PSH: Denies SH: Cigarettes: 1 per day x 10 years. Denies ETOH use FH: Denies Meds: Denies PMD: None Review of Systems - Review of Systems Review of Systems: per HPI Past Patient History - Infectious Disease Hx of Infectious Diseases: None - Past Social History Smoking Status: Never Smoked - CARDIAC Hx Cardiac Disorders: No Hx Hypertension: No - PULMONARY Hx Respiratory Disorders: No Hx Tuberculosis: No - NEUROLOGICAL Hx Neurological Disorder: No HX Cerebrovascular Accident: No Hx Seizures: No - HEENT Hx HEENT Problems: No - RENAL Hx Chronic Kidney Disease: No Hx Kidney Stones: No - ENDOCRINE/METABOLIC Hx Endocrine Disorders: No - HEMATOLOGICAL/ONCOLOGICAL Hx Blood Disorders: No Hx Cancer: No Hx Human Immunodeficiency Virus (HIV): No - INTEGUMENTARY Hx Dermatological Problems: No - MUSCULOSKELETAL/RHEUMATOLOGICAL Hx Musculoskeletal Disorders: No - GASTROINTESTINAL Hx Gastrointestinal Disorders: No - GENITOURINARY/GYNECOLOGICAL Hx Genitourinary Disorders: No Hx Sexually Transmitted Disorders: No - PSYCHIATRIC Hx Substance Use: No (denies) - SURGICAL HISTORY Hx Surgeries: No - ANESTHESIA Hx Anesthesia: No Meds Allergies/Adverse Reactions: Allergies Allergy/AdvReac Type Severity Reaction Status Date / Time No Known Allergies Allergy Verified 01/12/18 22:53 - Medications Medications: Current Medications Acetaminophen (Tylenol 325mg Tab) 650 mg PO Q4H PRN PRN Reason: Pain, moderate (4-7) Benztropine Mesylate (Cogentin) 1 mg PO AMHS NICOLETTE Diphenhydramine HCl (Benadryl) 25 mg PO HS PRN PRN Reason: Insomnia Haloperidol (Haldol) 5 mg PO Q6 PRN; Protocol PRN Reason: Agitation Haloperidol Lactate (Haldol) 5 mg IM Q6 PRN; Protocol PRN Reason: Agitation Last Admin: 08/16/18 00:40 Dose: 5 mg Lorazepam (Ativan) 2 mg PO Q6 PRN; Protocol PRN Reason: Agitation Lorazepam (Ativan) 2 mg IM Q6H PRN; Protocol PRN Reason: Anxiety Last Admin: 08/16/18 00:40 Dose: 2 mg Risperidone (Risperdal Tab) 1 mg PO AMHS NICOLETTE; Protocol Trazodone HCl (Desyrel) 50 mg PO HS NICOLETTE Physical Exam - Constitutional Appears: Well, Non-toxic, No Acute Distress - Head Exam Head Exam: NORMAL INSPECTION, NORMOCEPHALIC - Eye Exam Eye Exam: EOMI, Normal appearance - ENT Exam ENT Exam: Mucous Membranes Moist, Normal Exam - Neck Exam Neck exam: Positive for: Normal Inspection - Respiratory Exam Respiratory Exam: Clear to Auscultation Bilateral, NORMAL BREATHING PATTERN - Cardiovascular Exam Cardiovascular Exam: REGULAR RHYTHM, +S1, +S2 - GI/Abdominal Exam GI & Abdominal Exam: Soft. absent: Tenderness - Extremities Exam Extremities exam: Positive for: normal inspection. Negative for: calf tenderness - Back Exam Back exam: NORMAL INSPECTION - Neurological Exam Neurological exam: Alert, Oriented x3 - Psychiatric Exam Psychiatric exam: Normal Affect, Normal Mood - Skin Skin Exam: Dry, Intact, Warm Results - Vital Signs Recent Vital Signs: Last Vital Signs Temp 97.4 F L 08/16/18 07:12 Pulse 115 H 08/16/18 07:12 Resp 20 08/16/18 07:12 BP 121/79 08/16/18 07:12 Pulse Ox 95 08/15/18 21:44 - Labs Result Diagrams: 08/15/18 21:40 08/15/18 21:40 Labs: Laboratory Results - last 24 hr 08/15/18 08/15/18 08/15/18 21:40 21:40 21:40 WBC 9.0 RBC 5.28 Hgb 15.0 Hct 44.9 MCV 85.0 MCH 28.4 MCHC 33.4 RDW 13.1 Plt Count 278 MPV 10.7 Neut % (Auto) 68.9 H Lymph % (Auto) 24.0 [place] % (Auto) 6.8 H Eos % (Auto) 0.2 L Baso % (Auto) 0.1 Lymph # (Auto) 2.2 [place] # (Auto) 0.6 Eos # (Auto) 0.0 Baso # (Auto) 0.01 Absolute Neuts (auto) 6.17 Sodium 140 Potassium 4.1 Chloride 99 Carbon Dioxide 25 Anion Gap 20 BUN 16 Creatinine 1.0 Est GFR ( Amer) > 60 Est GFR (Non-Af Amer) > 60 Random Glucose 104 Fasting Glucose Calcium 9.9 Total Bilirubin 0.6 AST 24 ALT 9 Alkaline Phosphatase 77 Troponin I Total Protein 8.8 H Albumin 5.1 H Globulin 3.7 Albumin/Globulin Ratio 1.4 Triglycerides Cholesterol LDL Cholesterol Direct HDL Cholesterol Free T4 TSH 3rd Generation Urine Color Urine Appearance Urine pH Ur Specific [place] Urine Protein Urine Glucose (UA) Urine Ketones Urine Blood Urine Nitrate Urine Bilirubin Urine Urobilinogen Ur Leukocyte Esterase Urine RBC Urine WBC Ur Epithelial Cells Amorphous Sediment Urine Bacteria Urine Other Urine Opiates Screen Urine Methadone Screen Ur Barbiturates Screen Ur Phencyclidine Scrn Ur Amphetamines Screen U Benzodiazepines Scrn U Oth Cocaine Metabols U Cannabinoids Screen Alcohol, Quantitative < 10 08/15/18 08/15/18 08/15/18 21:40 22:30 22:30 WBC RBC Hgb Hct MCV MCH MCHC RDW Plt Count MPV Neut % (Auto) Lymph % (Auto) [place] % (Auto) Eos % (Auto) Baso % (Auto) Lymph # (Auto) [place] # (Auto) Eos # (Auto) Baso # (Auto) Absolute Neuts (auto) Sodium Potassium Chloride Carbon Dioxide Anion Gap BUN Creatinine Est GFR ( Amer) Est GFR (Non-Af Amer) Random Glucose Fasting Glucose Calcium Total Bilirubin AST ALT Alkaline Phosphatase Troponin I < 0.01 Total Protein Albumin Globulin Albumin/Globulin Ratio Triglycerides Cholesterol LDL Cholesterol Direct HDL Cholesterol Free T4 TSH 3rd Generation Urine Color Yellow Urine Appearance Sl cloudy Urine pH 6.5 Ur Specific [place] 1.020 Urine Protein Trace H Urine Glucose (UA) Negative Urine Ketones 15 H Urine Blood Negative Urine Nitrate Negative Urine Bilirubin Negative Urine Urobilinogen 1.0 H Ur Leukocyte Esterase Negative Urine RBC 0 - 2 Urine WBC 0 - 2 Ur Epithelial Cells None Amorphous Sediment Few Urine Bacteria Many Urine Other Uyeast Urine Opiates Screen Negative Urine Methadone Screen Negative Ur Barbiturates Screen Negative Ur Phencyclidine Scrn Negative Ur Amphetamines Screen Negative U Benzodiazepines Scrn Negative U Oth Cocaine Metabols Negative U Cannabinoids Screen Positive H Alcohol, Quantitative 08/16/18 08/16/18 07:00 07:00 WBC RBC Hgb Hct MCV MCH MCHC RDW Plt Count MPV Neut % (Auto) Lymph % (Auto) [place] % (Auto) Eos % (Auto) Baso % (Auto) Lymph # (Auto) [place] # (Auto) Eos # (Auto) Baso # (Auto) Absolute Neuts (auto) Sodium Potassium Chloride Carbon Dioxide Anion Gap BUN Creatinine Est GFR ( Amer) Est GFR (Non-Af Amer) Random Glucose Fasting Glucose 93 Calcium Total Bilirubin AST ALT Alkaline Phosphatase Troponin I Total Protein Albumin Globulin Albumin/Globulin Ratio Triglycerides 65 Cholesterol 182 LDL Cholesterol Direct 120 HDL Cholesterol 41 Free T4 1.35 TSH 3rd Generation 0.40 L Urine Color Urine Appearance Urine pH Ur Specific [place] Urine Protein Urine Glucose (UA) Urine Ketones Urine Blood Urine Nitrate Urine Bilirubin Urine Urobilinogen Ur Leukocyte Esterase Urine RBC Urine WBC Ur Epithelial Cells Amorphous Sediment Urine Bacteria Urine Other Urine Opiates Screen Urine Methadone Screen Ur Barbiturates Screen Ur Phencyclidine Scrn Ur Amphetamines Screen U Benzodiazepines Scrn U Oth Cocaine Metabols U Cannabinoids Screen Alcohol, Quantitative Assessment & Plan - Assessment and Plan (Free Text) Assessment: 28 y/o M with no significant PMH with reported psychiatric history of schizophrenia admitted d/t bizarree behavior. Medicine consulted for "admission." Plan: Tobacco use disorder Advised on cessation Does not request nicotine patch Sinus tachycardia No complaints of chest pain, palpitations, shortness of breath, diaphoresis CXR: (-) Likely 2/2 underlying psychiatric disorders Schizophrenia continue care per primary team Substance abuse Urine (+) for marijuana Advised on cessation Dispo: Pt reports no complaints. VSS. Labs wnl. We will sign off for now. Please re-consult as necessary Case reviewed with attending physician, Dr. Catarino Krause PGY1 <Davin Mcdonald - Last Filed: 08/16/18 16:08> Meds - Medications Medications: Current Medications Acetaminophen (Tylenol 325mg Tab) 650 mg PO Q4H PRN PRN Reason: Pain, moderate (4-7) Benztropine Mesylate (Cogentin) 1 mg PO AMHS NICOLETTE Diphenhydramine HCl (Benadryl) 25 mg PO HS PRN PRN Reason: Insomnia Haloperidol (Haldol) 5 mg PO Q6 PRN; Protocol PRN Reason: Agitation Haloperidol Lactate (Haldol) 5 mg IM Q6 PRN; Protocol PRN Reason: Agitation Last Admin: 08/16/18 00:40 Dose: 5 mg Lorazepam (Ativan) 2 mg PO Q6 PRN; Protocol PRN Reason: Agitation Lorazepam (Ativan) 2 mg IM Q6H PRN; Protocol PRN Reason: Anxiety Last Admin: 08/16/18 00:40 Dose: 2 mg Risperidone (Risperdal Tab) 1 mg PO AMHS NICOLETTE; Protocol Trazodone HCl (Desyrel) 50 mg PO HS NICOLETTE Results - Vital Signs Recent Vital Signs: Last Vital Signs Temp 97.4 F L 08/16/18 07:12 Pulse 115 H 08/16/18 07:12 Resp 20 08/16/18 07:12 BP 121/79 08/16/18 07:12 Pulse Ox 95 08/15/18 21:44 - Labs Result Diagrams: 08/15/18 21:40 08/15/18 21:40 Labs: Laboratory Results - last 24 hr 08/15/18 08/15/18 08/15/18 21:40 21:40 21:40 WBC 9.0 RBC 5.28 Hgb 15.0 Hct 44.9 MCV 85.0 MCH 28.4 MCHC 33.4 RDW 13.1 Plt Count 278 MPV 10.7 Neut % (Auto) 68.9 H Lymph % (Auto) 24.0 [place] % (Auto) 6.8 H Eos % (Auto) 0.2 L Baso % (Auto) 0.1 Lymph # (Auto) 2.2 [place] # (Auto) 0.6 Eos # (Auto) 0.0 Baso # (Auto) 0.01 Absolute Neuts (auto) 6.17 Sodium 140 Potassium 4.1 Chloride 99 Carbon Dioxide 25 Anion Gap 20 BUN 16 Creatinine 1.0 Est GFR ( Amer) > 60 Est GFR (Non-Af Amer) > 60 Random Glucose 104 Fasting Glucose Calcium 9.9 Total Bilirubin 0.6 AST 24 ALT 9 Alkaline Phosphatase 77 Troponin I Total Protein 8.8 H Albumin 5.1 H Globulin 3.7 Albumin/Globulin Ratio 1.4 Triglycerides Cholesterol LDL Cholesterol Direct HDL Cholesterol Free T4 TSH 3rd Generation Urine Color Urine Appearance Urine pH Ur Specific [place] Urine Protein Urine Glucose (UA) Urine Ketones Urine Blood Urine Nitrate Urine Bilirubin Urine Urobilinogen Ur Leukocyte Esterase Urine RBC Urine WBC Ur Epithelial Cells Amorphous Sediment Urine Bacteria Urine Other Urine Opiates Screen Urine Methadone Screen Ur Barbiturates Screen Ur Phencyclidine Scrn Ur Amphetamines Screen U Benzodiazepines Scrn U Oth Cocaine Metabols U Cannabinoids Screen Alcohol, Quantitative < 10 08/15/18 08/15/18 08/15/18 21:40 22:30 22:30 WBC RBC Hgb Hct MCV MCH MCHC RDW Plt Count MPV Neut % (Auto) Lymph % (Auto) [place] % (Auto) Eos % (Auto) Baso % (Auto) Lymph # (Auto) [place] # (Auto) Eos # (Auto) Baso # (Auto) Absolute Neuts (auto) Sodium Potassium Chloride Carbon Dioxide Anion Gap BUN Creatinine Est GFR ( Amer) Est GFR (Non-Af Amer) Random Glucose Fasting Glucose Calcium Total Bilirubin AST ALT Alkaline Phosphatase Troponin I < 0.01 Total Protein Albumin Globulin Albumin/Globulin Ratio Triglycerides Cholesterol LDL Cholesterol Direct HDL Cholesterol Free T4 TSH 3rd Generation Urine Color Yellow Urine Appearance Sl cloudy Urine pH 6.5 Ur Specific [place] 1.020 Urine Protein Trace H Urine Glucose (UA) Negative Urine Ketones 15 H Urine Blood Negative Urine Nitrate Negative Urine Bilirubin Negative Urine Urobilinogen 1.0 H Ur Leukocyte Esterase Negative Urine RBC 0 - 2 Urine WBC 0 - 2 Ur Epithelial Cells None Amorphous Sediment Few Urine Bacteria Many Urine Other Uyeast Urine Opiates Screen Negative Urine Methadone Screen Negative Ur Barbiturates Screen Negative Ur Phencyclidine Scrn Negative Ur Amphetamines Screen Negative U Benzodiazepines Scrn Negative U Oth Cocaine Metabols Negative U Cannabinoids Screen Positive H Alcohol, Quantitative 08/16/18 08/16/18 07:00 07:00 WBC RBC Hgb Hct MCV MCH MCHC RDW Plt Count MPV Neut % (Auto) Lymph % (Auto) [place] % (Auto) Eos % (Auto) Baso % (Auto) Lymph # (Auto) [place] # (Auto) Eos # (Auto) Baso # (Auto) Absolute Neuts (auto) Sodium Potassium Chloride Carbon Dioxide Anion Gap BUN Creatinine Est GFR ( Amer) Est GFR (Non-Af Amer) Random Glucose Fasting Glucose 93 Calcium Total Bilirubin AST ALT Alkaline Phosphatase Troponin I Total Protein Albumin Globulin Albumin/Globulin Ratio Triglycerides 65 Cholesterol 182 LDL Cholesterol Direct 120 HDL Cholesterol 41 Free T4 1.35 TSH 3rd Generation 0.40 L Urine Color Urine Appearance Urine pH Ur Specific [place] Urine Protein Urine Glucose (UA) Urine Ketones Urine Blood Urine Nitrate Urine Bilirubin Urine Urobilinogen Ur Leukocyte Esterase Urine RBC Urine WBC Ur Epithelial Cells Amorphous Sediment Urine Bacteria Urine Other Urine Opiates Screen Urine Methadone Screen Ur Barbiturates Screen Ur Phencyclidine Scrn Ur Amphetamines Screen U Benzodiazepines Scrn U Oth Cocaine Metabols U Cannabinoids Screen Alcohol, Quantitative Attending/Attestation - Attestation I have personally seen and examined this patient.: Yes I have fully participated in the care of the patient.: Yes I have reviewed all pertinent clinical information: Yes Notes (Text): 08/16/18 16:04 Attending note; Patient seen and examined with resident in psychiatric floor. Patient is alert and awake. Lying in bed . Answering few questions. Denies any complaints. Not communicating much. Not in any acute distress. Patient is a 28-year-old with a past medical history of schizophrenia admitted for abnormal behavior. Currently patient denies any complaints. 1. Schizophrenia; currently on Ativan, Cogentin, Haldol, Risperdal. Monitor closely. 2. Active smoking; smoking cessation is strongly advised . 3. Sinus Tachycardia; possibly related to anxiety.continue Ativan. Monitor heart rate closely. 4. Labs reviewed. Urine is positive for marijuana. Complete drug abuse cessation strongly advised. Patient is currently medically stable. Offers no complaints. Please reconsult as needed.
[2018-08-16] MEDS: DiphenhydrAMINE 50 mg/ml Inj IM PRN (19:43)
[2018-08-17] MEDS: DiphenhydrAMINE 50 mg/ml Inj IM PRN (09:22)
--- NOTE | 2018-08-17 09:54 | PCM.PYCHPN ---
Psychiatric Progress Note - Psychiatric Progress Note Patient seen today, length of contact: 25 min Problems Identified/Issues Discussed: History of Present Illness and Precipitating Events: Patient is a 28 year old [place] male with reported history of Schizophrenia, 2 psychiatric admissions, {01/12/18-01/20/18 at [facility] and [address] [facility]}, repeated history of noncompliance with PO meds and injectables who was BIBA with the police and family because of the bizarre behavior at home yesterday evening 08/15/18. Most of patient's information was obtained from review of his chart as patient was not cooperative with an interview this morning. He was also resistant and uncooperative with floor staff upon his arrival last night, refusing to take prescribed medications. Records indicate that patient came home yesterday evening and started to cry and smile without speaking. PES clinician spoke with patient's mother Ivelisse Manzo and she presented a video of patient screaming, laughing and punching his chest. Collateral verbalized that when patient decompensates he primarily laughs and yells. Patient was reluctant to sign in voluntarily however did so to avoid possible involuntary commitment to [facility]. Nursing admission note indicates that patient was preoccupied and staring inappropriately when he arrived to the floor. He admitted to signing the consent because "[place] Police forced me". Patient refused Risperdal and cogentin last night indicating he didn't need medication. Patient was pacing and becoming increasingly upset. Eventually he was given Haldol 5 mg and Ativan 2 mg IM for agitated behavior. This is very similar to his his prior admission in which he required Geodon IM on his first night for agitation. PSYCHIATRIC HISTORY {01/12/18-01/20/18} at [facility]. Patient brought in by his parents for evaluation and stabilization of disorganized thoughts,inability to sleep, hearing voices, self isolating. Pt presented to be disorganized, guarded, par anoid and agitated when arriving on the unit. He tried to elope from the unit and required IM medication Geodon and Ativan because patient was in danger to self or others. Discharged on: Invega Sustenna 156 mg IM ONCE on 01/19/18 Invega Sustenna 117 mg IM Q30D Cogentin 1 mg PO AMHS Benadryl 50 mg PO HS {2016} at [facility] and was put on Invega Sustenna. Collateral (patient's mother) verbalized that patient was linked to [facility]'s outpatient program. He was prescribed invega but refused to continue treatment and withdrew from [facility] outpatient program. Collateral stated that patient has not been on his medication for months. Patient was discharged 01/20/18 but notably very reluctant to agree to f/u with outpatient recommendations at discharge at that time. SOCIAL HISTORY Patient is single. Resides with family. UDS only + for cannabis PROGRESS NOTE 08/17/18 Patient remains unpredictable on the unit. He was escorted by 4 RNs to the quiet room and required IM prn for agitation and aggression on Friday evening. He tried to elope, a behavior he demonstrated during his prior admission in 12/2017. He doesn't want to speak with me even with gentle introduction and reassurance. He reluctantly responds to staff members only when he needs something and this is usually by shaking or nodding his head. Remains noncompliant with prescribed medications and recommended treatment plan. He is paranoid, anxious and preoccupied with poor insight and judgement. Diagnostic Results: Schizophrenia Medication Change: No (Patient refusing) Medical Record Reviewed: Yes Mental Status Examination - Cognitive Function Memory: Impaired Attention: Poor Concentration: Poor Association: Loose Fund of Knowledge: Poor - Affect Affect: Constricted, Flat - Speech Speech: Soft - Formal Thought Process Formal Thought Process: Hallucinations, Delusions, Paranoia, Loosening of associations - Suicidal Ideation Suicidal Ideation: No - Homicidal Ideation Homicidal Ideation: No Goal/Treatment Plan - Goal/Treatment Plan Progress Toward Problem(s) and Goals/Treatment Plan: * Group, milieu and supportive tx * Appreciate f/u by Dr. Mcdonald/Dr. Krause on 08/16/18~Sinus Tachycardia; possibly related to anxiety.continue Ativan. Monitor heart rate closely. Signed off * Risperdal 1 mg AM & HS with Cogentin 1 mg AM & HS for EPS prophylaxis. Will continue to try to engage and encourage patient to cooperate with recommendations * Consider decanoate however it has not been effective for compliance in the past * Haldol 5, Benadryl 25 mg and Ativan 2 mg po/IM prns * Trazodone 50 mg HS * Vitals reviewed and noted below: Selected Entries 08/17/18 07:20 Temperature 98.2 F Pulse Rate 90 Respiratory 20 Rate Blood Pressure 111/68 * Pt seen in tx team meeting on 08/17/18 and demonstrated very little insight into need for medications. Placed a 48 hour notice after team meeting. [facility] will be contacted to determine eligibility for involuntary commitment * Please refer to ER report dated 08/15/18 for ROS and physical exam findings. 08/15/18 22:20 -EKG: ST @ 112 BPM, no ST elevation or depression, no T wave inversion, normal ND/QRS/QT intervals. * Admission labs noted below: 08/16/18 08/16/18 08/16/18 07:00 07:00 07:00 Fasting Glucose 93 Triglycerides 65 Cholesterol 182 LDL Cholesterol Direct 120 HDL Cholesterol 41 Free T4 1.35 TSH 3rd Generation 0.40 L RPR Nonreactive Laboratory Tests 08/15/18 08/15/18 08/15/18 21:40 21:40 21:40 WBC 9.0 RBC 5.28 Hgb 15.0 Hct 44.9 MCV 85.0 MCH 28.4 MCHC 33.4 RDW 13.1 Plt Count 278 MPV 10.7 Neut % (Auto) 68.9 H Lymph % (Auto) 24.0 [place] % (Auto) 6.8 H Eos % (Auto) 0.2 L Baso % (Auto) 0.1 Lymph # (Auto) 2.2 [place] # (Auto) 0.6 Eos # (Auto) 0.0 Baso # (Auto) 0.01 Absolute Neuts (auto) 6.17 Sodium 140 Potassium 4.1 Chloride 99 Carbon Dioxide 25 Anion Gap 20 BUN 16 Creatinine 1.0 Est GFR ( Amer) > 60 Est GFR (Non-Af Amer) > 60 Random Glucose 104 Fasting Glucose Calcium 9.9 Total Bilirubin 0.6 AST 24 ALT 9 Alkaline Phosphatase 77 Troponin I Total Protein 8.8 H Albumin 5.1 H Globulin 3.7 Albumin/Globulin Ratio 1.4 Triglycerides Cholesterol LDL Cholesterol Direct HDL Cholesterol Free T4 TSH 3rd Generation Urine Color Urine Appearance Urine pH Ur Specific [place] Urine Protein Urine Glucose (UA) Urine Ketones Urine Blood Urine Nitrate Urine Bilirubin Urine Urobilinogen Ur Leukocyte Esterase Urine RBC Urine WBC Ur Epithelial Cells Amorphous Sediment Urine Bacteria Urine Other Urine Opiates Screen Urine Methadone Screen Ur Barbiturates Screen Ur Phencyclidine Scrn Ur Amphetamines Screen U Benzodiazepines Scrn U Oth Cocaine Metabols U Cannabinoids Screen Alcohol, Quantitative < 10 08/15/18 08/15/18 08/15/18 21:40 22:30 22:30 WBC RBC Hgb Hct MCV MCH MCHC RDW Plt Count MPV Neut % (Auto) Lymph % (Auto) [place] % (Auto) Eos % (Auto) Baso % (Auto) Lymph # (Auto) [place] # (Auto) Eos # (Auto) Baso # (Auto) Absolute Neuts (auto) Sodium Potassium Chloride Carbon Dioxide Anion Gap BUN Creatinine Est GFR ( Amer) Est GFR (Non-Af Amer) Random Glucose Fasting Glucose Calcium Total Bilirubin AST ALT Alkaline Phosphatase Troponin I < 0.01 Total Protein Albumin Globulin Albumin/Globulin Ratio Triglycerides Cholesterol LDL Cholesterol Direct HDL Cholesterol Free T4 TSH 3rd Generation Urine Color Yellow Urine Appearance Sl cloudy Urine pH 6.5 Ur Specific [place] 1.020 Urine Protein Trace H Urine Glucose (UA) Negative Urine Ketones 15 H Urine Blood Negative Urine Nitrate Negative Urine Bilirubin Negative Urine Urobilinogen 1.0 H Ur Leukocyte Esterase Negative Urine RBC 0 - 2 Urine WBC 0 - 2 Ur Epithelial Cells None Amorphous Sediment Few Urine Bacteria Many Urine Other Uyeast Urine Opiates Screen Negative Urine Methadone Screen Negative Ur Barbiturates Screen Negative Ur Phencyclidine Scrn Negative Ur Amphetamines Screen Negative U Benzodiazepines Scrn Negative U Oth Cocaine Metabols Negative U Cannabinoids Screen Positive H Alcohol, Quantitative 08/16/18 08/16/18 07:00 07:00 WBC RBC Hgb Hct MCV MCH MCHC RDW Plt Count MPV Neut % (Auto) Lymph % (Auto) [place] % (Auto) Eos % (Auto) Baso % (Auto) Lymph # (Auto) [place] # (Auto) Eos # (Auto) Baso # (Auto) Absolute Neuts (auto) Sodium Potassium Chloride Carbon Dioxide Anion Gap BUN Creatinine Est GFR ( Amer) Est GFR (Non-Af Amer) Random Glucose Fasting Glucose 93 Calcium Total Bilirubin AST ALT Alkaline Phosphatase Troponin I Total Protein Albumin Globulin Albumin/Globulin Ratio Triglycerides 65 Cholesterol 182 LDL Cholesterol Direct 120 HDL Cholesterol 41 Free T4 1.35 TSH 3rd Generation 0.40 L Urine Color Urine Appearance Urine pH Ur Specific [place] Urine Protein Urine Glucose (UA) Urine Ketones Urine Blood Urine Nitrate Urine Bilirubin Urine Urobilinogen Ur Leukocyte Esterase Urine RBC Urine WBC Ur Epithelial Cells Amorphous Sediment Urine Bacteria Urine Other Urine Opiates Screen Urine Methadone Screen Ur Barbiturates Screen Ur Phencyclidine Scrn Ur Amphetamines Screen U Benzodiazepines Scrn U Oth Cocaine Metabols U Cannabinoids Screen Alcohol, Quantitative
[2018-08-17] MEDS ORDERED: Alum-Mag Hydrox-Simethicone Susp (30 mL) PO PRN (09:56)
--- NOTE | 2018-08-17 10:59 | PCM.BM ---
Treatment Plan Problems - Problems identified on initial assessmt alteration in thoughts Date Initiated: 08/16/18 Time Initiated: 00:00 Assessment reference: NA Status: Active Comment: thought-blocking; internal stimuli non-compliance Date Initiated: 08/16/18 Time Initiated: 00:00 Assessment reference: NA Status: Active Comment: " I don't need any medication". delusion Date Initiated: 08/17/18 Time Initiated: 11:00 Assessment reference: NA Status: Active Priority: 3 thought process Date Initiated: 08/17/18 Time Initiated: 11:00 Assessment reference: NA Status: Active Priority: 4 agitated/aggressive behavior Date Initiated: 08/17/18 Time Initiated: 11:00 Assessment reference: NA Priority: 5 altered sleep pattern Date Initiated: 08/17/18 Time Initiated: 11:00 Assessment reference: NA Status: Active Priority: 6 social isolation Date Initiated: 08/17/18 Time Initiated: 11:00 Assessment reference: NA Status: Active Priority: 7 ineffective indv coping Date Initiated: 08/17/18 Time Initiated: 11:00 Assessment reference: NA Status: Active Priority: 8 Treatment assets and liabiliti Patient Assests: ADL independent, good support system - Milieu Protocol Maintain good personal hygiene: daily Encourage regular showers, daily Remind patient to perform daily oral care Conduct patient checks and document Observation sheet: Q15 minutes Maintain personal safety: every shift Educate patient to report safety concerns to staff, every shift Monitor environment for contraband/sharps Medication safety: Monitor for expected outcome, potential side effects: every shift, Assess barriers to learning: every shift, Assess readiness for medication education: every shift Milieu Narrative: * Group, milieu and supportive tx * Appreciate f/u by Dr. Mcdonald/Dr. Krause on 08/16/18~Sinus Tachycardia; possibly related to anxiety.continue Ativan. Monitor heart rate closely. Signed off * Risperdal 1 mg AM & HS with Cogentin 1 mg AM & HS for EPS prophylaxis. Will continue to try to engage and encourage patient to cooperate with recommendations * Consider decanoate however it has not been effective for compliance in the past * Haldol 5, Benadryl 25 mg and Ativan 2 mg po/IM prns * Trazodone 50 mg HS * Vitals reviewed and noted below: Selected Entries 08/17/18 07:20 Temperature 98.2 F Pulse Rate 90 Respiratory 20 Rate Blood Pressure 111/68 * Please refer to ER report dated 08/15/18 for ROS and physical exam findings. 08/15/18 22:20 -EKG: ST @ 112 BPM, no ST elevation or depression, no T wave inversion, normal [place]/QRS/QT intervals. * Admission labs noted below: 08/16/18 08/16/18 08/16/18 07:00 07:00 07:00 Fasting Glucose 93 Triglycerides 65 Cholesterol 182 LDL Cholesterol Direct 120 HDL Cholesterol 41 Free T4 1.35 TSH 3rd Generation 0.40 L RPR Nonreactive Laboratory Tests 08/15/18 08/15/18 08/15/18 21:40 21:40 21:40 WBC 9.0 RBC 5.28 Hgb 15.0 Hct 44.9 MCV 85.0 MCH 28.4 MCHC 33.4 RDW 13.1 Plt Count 278 MPV 10.7 Neut % (Auto) 68.9 H Lymph % (Auto) 24.0 [place] % (Auto) 6.8 H Eos % (Auto) 0.2 L Baso % (Auto) 0.1 Lymph # (Auto) 2.2 [place] # (Auto) 0.6 Eos # (Auto) 0.0 Baso # (Auto) 0.01 Absolute Neuts (auto) 6.17 Sodium 140 Potassium 4.1 Chloride 99 Carbon Dioxide 25 Anion Gap 20 BUN 16 Creatinine 1.0 Est GFR ( Amer) > 60 Est GFR (Non-Af Amer) > 60 Random Glucose 104 Fasting Glucose Calcium 9.9 Total Bilirubin 0.6 AST 24 ALT 9 Alkaline Phosphatase 77 Troponin I Total Protein 8.8 H Albumin 5.1 H Globulin 3.7 Albumin/Globulin Ratio 1.4 Triglycerides Cholesterol LDL Cholesterol Direct HDL Cholesterol Free T4 TSH 3rd Generation Urine Color Urine Appearance Urine pH Ur Specific [place] Urine Protein Urine Glucose (UA) Urine Ketones Urine Blood Urine Nitrate Urine Bilirubin Urine Urobilinogen Ur Leukocyte Esterase Urine RBC Urine WBC Ur Epithelial Cells Amorphous Sediment Urine Bacteria Urine Other Urine Opiates Screen Urine Methadone Screen Ur Barbiturates Screen Ur Phencyclidine Scrn Ur Amphetamines Screen U Benzodiazepines Scrn U Oth Cocaine Metabols U Cannabinoids Screen Alcohol, Quantitative < 10 08/15/18 08/15/18 08/15/18 21:40 22:30 22:30 WBC RBC Hgb Hct MCV MCH MCHC RDW Plt Count MPV Neut % (Auto) Lymph % (Auto) [place] % (Auto) Eos % (Auto) Baso % (Auto) Lymph # (Auto) [place] # (Auto) Eos # (Auto) Baso # (Auto) Absolute Neuts (auto) Sodium Potassium Chloride Carbon Dioxide Anion Gap BUN Creatinine Est GFR ( Amer) Est GFR (Non-Af Amer) Random Glucose Fasting Glucose Calcium Total Bilirubin AST ALT Alkaline Phosphatase Troponin I < 0.01 Total Protein Albumin Globulin Albumin/Globulin Ratio Triglycerides Cholesterol LDL Cholesterol Direct HDL Cholesterol Free T4 TSH 3rd Generation Urine Color Yellow Urine Appearance Sl cloudy Urine pH 6.5 Ur Specific [place] 1.020 Urine Protein Trace H Urine Glucose (UA) Negative Urine Ketones 15 H Urine Blood Negative Urine Nitrate Negative Urine Bilirubin Negative Urine Urobilinogen 1.0 H Ur Leukocyte Esterase Negative Urine RBC 0 - 2 Urine WBC 0 - 2 Ur Epithelial Cells None Amorphous Sediment Few Urine Bacteria Many Urine Other Uyeast Urine Opiates Screen Negative Urine Methadone Screen Negative Ur Barbiturates Screen Negative Ur Phencyclidine Scrn Negative Ur Amphetamines Screen Negative U Benzodiazepines Scrn Negative U Oth Cocaine Metabols Negative U Cannabinoids Screen Positive H Alcohol, Quantitative 08/16/18 08/16/18 07:00 07:00 WBC RBC Hgb Hct MCV MCH MCHC RDW Plt Count MPV Neut % (Auto) Lymph % (Auto) [place] % (Auto) Eos % (Auto) Baso % (Auto) Lymph # (Auto) [place] # (Auto) Eos # (Auto) Baso # (Auto) Absolute Neuts (auto) Sodium Potassium Chloride Carbon Dioxide Anion Gap BUN Creatinine Est GFR ( Amer) Est GFR (Non-Af Amer) Random Glucose Fasting Glucose 93 Calcium Total Bilirubin AST ALT Alkaline Phosphatase Troponin I Total Protein Albumin Globulin Albumin/Globulin Ratio Triglycerides 65 Cholesterol 182 LDL Cholesterol Direct 120 HDL Cholesterol 41 Free T4 1.35 TSH 3rd Generation 0.40 L Urine Color Urine Appearance Urine pH Ur Specific [place] Urine Protein Urine Glucose (UA) Urine Ketones Urine Blood Urine Nitrate Urine Bilirubin Urine Urobilinogen Ur Leukocyte Esterase Urine RBC Urine WBC Ur Epithelial Cells Amorphous Sediment Urine Bacteria Urine Other Urine Opiates Screen Urine Methadone Screen Ur Barbiturates Screen Ur Phencyclidine Scrn Ur Amphetamines Screen U Benzodiazepines Scrn U Oth Cocaine Metabols U Cannabinoids Screen Alcohol, Quantitative Discharge/Continuing Care - Treatment Team Participation Patient/Family/SO Statement: * Group, milieu and supportive tx * Appreciate f/u by Dr. Mcdonald/Dr. Krause on 08/16/18~Sinus Tachycardia; possibly related to anxiety.continue Ativan. Monitor heart rate closely. Signed off * Risperdal 1 mg AM & HS with Cogentin 1 mg AM & HS for EPS prophylaxis. Will continue to try to engage and encourage patient to cooperate with recommendations * Consider decanoate however it has not been effective for compliance in the past * Haldol 5, Benadryl 25 mg and Ativan 2 mg po/IM prns * Trazodone 50 mg HS * Vitals reviewed and noted below: Selected Entries 08/17/18 07:20 Temperature 98.2 F Pulse Rate 90 Respiratory 20 Rate Blood Pressure 111/68 * Please refer to ER report dated 08/15/18 for ROS and physical exam findings. 08/15/18 22:20 -EKG: ST @ 112 BPM, no ST elevation or depression, no T wave inversion, normal TN/QRS/QT intervals. * Admission labs noted below: 08/16/18 08/16/18 08/16/18 07:00 07:00 07:00 Fasting Glucose 93 Triglycerides 65 Cholesterol 182 LDL Cholesterol Direct 120 HDL Cholesterol 41 Free T4 1.35 TSH 3rd Generation 0.40 L RPR Nonreactive Laboratory Tests 08/15/18 08/15/18 08/15/18 21:40 21:40 21:40 WBC 9.0 RBC 5.28 Hgb 15.0 Hct 44.9 MCV 85.0 MCH 28.4 MCHC 33.4 RDW 13.1 Plt Count 278 MPV 10.7 Neut % (Auto) 68.9 H Lymph % (Auto) 24.0 [place] % (Auto) 6.8 H Eos % (Auto) 0.2 L Baso % (Auto) 0.1 Lymph # (Auto) 2.2 [place] # (Auto) 0.6 Eos # (Auto) 0.0 Baso # (Auto) 0.01 Absolute Neuts (auto) 6.17 Sodium 140 Potassium 4.1 Chloride 99 Carbon Dioxide 25 Anion Gap 20 BUN 16 Creatinine 1.0 Est GFR ( Amer) > 60 Est GFR (Non-Af Amer) > 60 Random Glucose 104 Fasting Glucose Calcium 9.9 Total Bilirubin 0.6 AST 24 ALT 9 Alkaline Phosphatase 77 Troponin I Total Protein 8.8 H Albumin 5.1 H Globulin 3.7 Albumin/Globulin Ratio 1.4 Triglycerides Cholesterol LDL Cholesterol Direct HDL Cholesterol Free T4 TSH 3rd Generation Urine Color Urine Appearance Urine pH Ur Specific [place] Urine Protein Urine Glucose (UA) Urine Ketones Urine Blood Urine Nitrate Urine Bilirubin Urine Urobilinogen Ur Leukocyte Esterase Urine RBC Urine WBC Ur Epithelial Cells Amorphous Sediment Urine Bacteria Urine Other Urine Opiates Screen Urine Methadone Screen Ur Barbiturates Screen Ur Phencyclidine Scrn Ur Amphetamines Screen U Benzodiazepines Scrn U Oth Cocaine Metabols U Cannabinoids Screen Alcohol, Quantitative < 10 08/15/18 08/15/18 08/15/18 21:40 22:30 22:30 WBC RBC Hgb Hct MCV MCH MCHC RDW Plt Count MPV Neut % (Auto) Lymph % (Auto) [place] % (Auto) Eos % (Auto) Baso % (Auto) Lymph # (Auto) [place] # (Auto) Eos # (Auto) Baso # (Auto) Absolute Neuts (auto) Sodium Potassium Chloride Carbon Dioxide Anion Gap BUN Creatinine Est GFR ( Amer) Est GFR (Non-Af Amer) Random Glucose Fasting Glucose Calcium Total Bilirubin AST ALT Alkaline Phosphatase Troponin I < 0.01 Total Protein Albumin Globulin Albumin/Globulin Ratio Triglycerides Cholesterol LDL Cholesterol Direct HDL Cholesterol Free T4 TSH 3rd Generation Urine Color Yellow Urine Appearance Sl cloudy Urine pH 6.5 Ur Specific [place] 1.020 Urine Protein Trace H Urine Glucose (UA) Negative Urine Ketones 15 H Urine Blood Negative Urine Nitrate Negative Urine Bilirubin Negative Urine Urobilinogen 1.0 H Ur Leukocyte Esterase Negative Urine RBC 0 - 2 Urine WBC 0 - 2 Ur Epithelial Cells None Amorphous Sediment Few Urine Bacteria Many Urine Other Uyeast Urine Opiates Screen Negative Urine Methadone Screen Negative Ur Barbiturates Screen Negative Ur Phencyclidine Scrn Negative Ur Amphetamines Screen Negative U Benzodiazepines Scrn Negative U Oth Cocaine Metabols Negative U Cannabinoids Screen Positive H Alcohol, Quantitative 08/16/18 08/16/18 07:00 07:00 WBC RBC Hgb Hct MCV MCH MCHC RDW Plt Count MPV Neut % (Auto) Lymph % (Auto) [place] % (Auto) Eos % (Auto) Baso % (Auto) Lymph # (Auto) [place] # (Auto) Eos # (Auto) Baso # (Auto) Absolute Neuts (auto) Sodium Potassium Chloride Carbon Dioxide Anion Gap BUN Creatinine Est GFR ( Amer) Est GFR (Non-Af Amer) Random Glucose Fasting Glucose 93 Calcium Total Bilirubin AST ALT Alkaline Phosphatase Troponin I Total Protein Albumin Globulin Albumin/Globulin Ratio Triglycerides 65 Cholesterol 182 LDL Cholesterol Direct 120 HDL Cholesterol 41 Free T4 1.35 TSH 3rd Generation 0.40 L Urine Color Urine Appearance Urine pH Ur Specific [place] Urine Protein Urine Glucose (UA) Urine Ketones Urine Blood Urine Nitrate Urine Bilirubin Urine Urobilinogen Ur Leukocyte Esterase Urine RBC Urine WBC Ur Epithelial Cells Amorphous Sediment Urine Bacteria Urine Other Urine Opiates Screen Urine Methadone Screen Ur Barbiturates Screen Ur Phencyclidine Scrn Ur Amphetamines Screen U Benzodiazepines Scrn U Oth Cocaine Metabols U Cannabinoids Screen Alcohol, Quantitative
--- NOTE | 2018-08-18 08:21 | PCM.PYCHPN ---
Psychiatric Progress Note - Psychiatric Progress Note Patient seen today, length of contact: 25 min Problems Identified/Issues Discussed: History of Present Illness and Precipitating Events: Patient is a 28 year old Sami male with reported history of Schizophrenia, 2 psychiatric admissions, {01/12/18-01/20/18 at [facility] and 2016 admission to [facility]}, repeated history of noncompliance with PO meds and injectables who was BIBA with the police and family because of the bizarre behavior at home yesterday evening 08/15/18. Most of patient's information was obtained from review of his chart as patient was not cooperative with an interview this morning. He was also resistant and uncooperative with floor staff upon his arrival last night, refusing to take prescribed medications. Records indicate that patient came home yesterday evening and started to cry and smile without speaking. PES clinician spoke with patient's mother Ivelisse Manzo and she presented a video of patient screaming, laughing and punching his chest. Collateral verbalized that when patient decompensates he primarily laughs and yells. Patient was reluctant to sign in voluntarily however did so to avoid possible involuntary commitment to [facility]. Nursing admission note indicates that patient was preoccupied and staring inappropriately when he arrived to the floor. He admitted to signing the consent because "[place] [employer] forced me". Patient refused Risperdal and cogentin last night indicating he didn't need medication. Patient was pacing and becoming increasingly upset. Eventually he was given Haldol 5 mg and Ativan 2 mg IM for agitated behavior. This is very similar to his his prior admission in which he required Geodon IM on his first night for agitation. PSYCHIATRIC HISTORY {01/12/18-01/20/18} at [facility]. Patient brought in by his parents for evaluation and stabilization of disorganized thoughts,inability to sleep, hearing voices, self isolating. Pt presented to be disorganized, guarded, par anoid and agitated when arriving on the unit. He tried to elope from the unit and required IM medication Geodon and Ativan because patient was in danger to self or others. Discharged on: Invega Sustenna 156 mg IM ONCE on 01/19/18 Invega Sustenna 117 mg IM Q30D Cogentin 1 mg PO AMHS Benadryl 50 mg PO HS {2016} at [facility] and was put on Invega Sustenna. Collateral (patient's mother) verbalized that patient was linked to [facility]'s outpatient program. He was prescribed invega but refused to continue treatment and withdrew from [facility]'s outpatient program. Collateral stated that patient has not been on his medication for months. Patient was discharged 01/20/18 but notably very reluctant to agree to f/u with outpatient recommendations at discharge at that time. SOCIAL HISTORY Patient is single. Resides with family. UDS only + for cannabis PROGRESS NOTE 08/18/18 Today I attempted to interview patient in his room with medical student, Dr. Adamson however he refused to engage except to request discharge from the unit. Patient remains unpredictable. He required Haldol, Benadryl and Ativan IM in the AM prior to treatment team meeting on Friday08/17/18 and also required Haldol, Benadryl and Ativan po later in that evening. He has been restless, pacing, resistant and looking for ways to elope. He was notably argumentative,illogical and uncompromising during treatment team discussion. Patient put in a 48 hour notice thereafter and was accepted by [facility] screeners for involuntary commitment. He is awaiting a bed. OF NOTE: On Friday evening patient was escorted by 4 RNs to the quiet room and required IM prn for agitation and aggression. He tried to elope, a behavior he demonstrated during his prior admission in 12/2017. Patient generally doesn't want to speak with me even with gentle introduction and reassurance. He reluctantly responds to staff members only when he needs something and this is usually by shaking or nodding his head. Remains noncompliant with prescribed medications and recommended treatment plan. He is paranoid, anxious and preoccupied with poor insight and judgement. Diagnostic Results: Schizophrenia Medication Change: No (Patient refusing) Medical Record Reviewed: Yes Mental Status Examination - Cognitive Function Memory: Impaired Attention: Poor Concentration: Poor Association: Loose Fund of Knowledge: Poor - Affect Affect: Constricted, Flat - Speech Speech: Soft - Formal Thought Process Formal Thought Process: Hallucinations, Delusions, Paranoia, Loosening of associations - Suicidal Ideation Suicidal Ideation: No - Homicidal Ideation Homicidal Ideation: No Goal/Treatment Plan - Goal/Treatment Plan Progress Toward Problem(s) and Goals/Treatment Plan: * Group, milieu and supportive tx * Appreciate f/u by Dr. Mcdonald/Dr. Krause on 08/16/18~Sinus Tachycardia; possibly related to anxiety.continue Ativan. Monitor heart rate closely. Signed off * Risperdal 1 mg AM & HS with Cogentin 1 mg AM & HS for EPS prophylaxis. Will continue to try to engage and encourage patient to cooperate with recommendations * Consider decanoate however it has not been effective for compliance in the past * Haldol 5, Benadryl 25 mg and Ativan 2 mg po/IM prns * Trazodone 50 mg HS * Vitals reviewed and noted below: Selected Entries 08/17/18 07:20 Temperature 98.2 F Pulse Rate 90 Respiratory 20 Rate Blood Pressure 111/68 * Pt seen in tx team meeting on 08/17/18 and demonstrated very little insight into need for medications. Placed a 48 hour notice after team meeting. Patient has been accepted for involuntary commitment to [facility] and is currently awaiting a bed. * Please refer to ER report dated 08/15/18 for ROS and physical exam findings. 08/15/18 22:20 -EKG: ST @ 112 BPM, no ST elevation or depression, no T wave inversion, normal [place]/QRS/QT intervals. * Admission labs noted below: 08/16/18 08/16/18 08/16/18 07:00 07:00 07:00 Fasting Glucose 93 Triglycerides 65 Cholesterol 182 LDL Cholesterol Direct 120 HDL Cholesterol 41 Free T4 1.35 TSH 3rd Generation 0.40 L RPR Nonreactive Laboratory Tests 08/15/18 08/15/18 08/15/18 21:40 21:40 21:40 WBC 9.0 RBC 5.28 Hgb 15.0 Hct 44.9 MCV 85.0 MCH 28.4 MCHC 33.4 RDW 13.1 Plt Count 278 MPV 10.7 Neut % (Auto) 68.9 H Lymph % (Auto) 24.0 [place] % (Auto) 6.8 H Eos % (Auto) 0.2 L Baso % (Auto) 0.1 Lymph # (Auto) 2.2 [place] # (Auto) 0.6 Eos # (Auto) 0.0 Baso # (Auto) 0.01 Absolute Neuts (auto) 6.17 Sodium 140 Potassium 4.1 Chloride 99 Carbon Dioxide 25 Anion Gap 20 BUN 16 Creatinine 1.0 Est GFR ( Amer) > 60 Est GFR (Non-Af Amer) > 60 Random Glucose 104 Fasting Glucose Calcium 9.9 Total Bilirubin 0.6 AST 24 ALT 9 Alkaline Phosphatase 77 Troponin I Total Protein 8.8 H Albumin 5.1 H Globulin 3.7 Albumin/Globulin Ratio 1.4 Triglycerides Cholesterol LDL Cholesterol Direct HDL Cholesterol Free T4 TSH 3rd Generation Urine Color Urine Appearance Urine pH Ur Specific [place] Urine Protein Urine Glucose (UA) Urine Ketones Urine Blood Urine Nitrate Urine Bilirubin Urine Urobilinogen Ur Leukocyte Esterase Urine RBC Urine WBC Ur Epithelial Cells Amorphous Sediment Urine Bacteria Urine Other Urine Opiates Screen Urine Methadone Screen Ur Barbiturates Screen Ur Phencyclidine Scrn Ur Amphetamines Screen U Benzodiazepines Scrn U Oth Cocaine Metabols U Cannabinoids Screen Alcohol, Quantitative < 10 08/15/18 08/15/18 08/15/18 21:40 22:30 22:30 WBC RBC Hgb Hct MCV MCH MCHC RDW Plt Count MPV Neut % (Auto) Lymph % (Auto) [place] % (Auto) Eos % (Auto) Baso % (Auto) Lymph # (Auto) [place] # (Auto) Eos # (Auto) Baso # (Auto) Absolute Neuts (auto) Sodium Potassium Chloride Carbon Dioxide Anion Gap BUN Creatinine Est GFR ( Amer) Est GFR (Non-Af Amer) Random Glucose Fasting Glucose Calcium Total Bilirubin AST ALT Alkaline Phosphatase Troponin I < 0.01 Total Protein Albumin Globulin Albumin/Globulin Ratio Triglycerides Cholesterol LDL Cholesterol Direct HDL Cholesterol Free T4 TSH 3rd Generation Urine Color Yellow Urine Appearance Sl cloudy Urine pH 6.5 Ur Specific [place] 1.020 Urine Protein Trace H Urine Glucose (UA) Negative Urine Ketones 15 H Urine Blood Negative Urine Nitrate Negative Urine Bilirubin Negative Urine Urobilinogen 1.0 H Ur Leukocyte Esterase Negative Urine RBC 0 - 2 Urine WBC 0 - 2 Ur Epithelial Cells None Amorphous Sediment Few Urine Bacteria Many Urine Other Uyeast Urine Opiates Screen Negative Urine Methadone Screen Negative Ur Barbiturates Screen Negative Ur Phencyclidine Scrn Negative Ur Amphetamines Screen Negative U Benzodiazepines Scrn Negative U Oth Cocaine Metabols Negative U Cannabinoids Screen Positive H Alcohol, Quantitative 08/16/18 08/16/18 07:00 07:00 WBC RBC Hgb Hct MCV MCH MCHC RDW Plt Count MPV Neut % (Auto) Lymph % (Auto) [place] % (Auto) Eos % (Auto) Baso % (Auto) Lymph # (Auto) [place] # (Auto) Eos # (Auto) Baso # (Auto) Absolute Neuts (auto) Sodium Potassium Chloride Carbon Dioxide Anion Gap BUN Creatinine Est GFR ( Amer) Est GFR (Non-Af Amer) Random Glucose Fasting Glucose 93 Calcium Total Bilirubin AST ALT Alkaline Phosphatase Troponin I Total Protein Albumin Globulin Albumin/Globulin Ratio Triglycerides 65 Cholesterol 182 LDL Cholesterol Direct 120 HDL Cholesterol 41 Free T4 1.35 TSH 3rd Generation 0.40 L Urine Color Urine Appearance Urine pH Ur Specific [place] Urine Protein Urine Glucose (UA) Urine Ketones Urine Blood Urine Nitrate Urine Bilirubin Urine Urobilinogen Ur Leukocyte Esterase Urine RBC Urine WBC Ur Epithelial Cells Amorphous Sediment Urine Bacteria Urine Other Urine Opiates Screen Urine Methadone Screen Ur Barbiturates Screen Ur Phencyclidine Scrn Ur Amphetamines Screen U Benzodiazepines Scrn U Oth Cocaine Metabols U Cannabinoids Screen Alcohol, Quantitative
--- NOTE | 2018-08-19 11:28 | PCM.PYCHPN ---
Psychiatric Progress Note - Psychiatric Progress Note Patient seen today, length of contact: 25 min Problems Identified/Issues Discussed: History of Present Illness and Precipitating Events: Patient is a 28 year old Albanian male with reported history of Schizophrenia, 2 psychiatric admissions, {01/12/18-01/20/18 at [facility] and 2016 admission to [facility]}, repeated history of noncompliance with PO meds and injectables who was BIBA with the police and family because of the bizarre behavior at home yesterday evening 08/15/18. Most of patient's information was obtained from review of his chart as patient was not cooperative with an interview this morning. He was also resistant and uncooperative with floor staff upon his arrival last night, refusing to take prescribed medications. Records indicate that patient came home yesterday evening and started to cry and smile without speaking. PES clinician spoke with patient's mother Ivelisse Manzo and she presented a video of patient screaming, laughing and punching his chest. Collateral verbalized that when patient decompensates he primarily laughs and yells. Patient was reluctant to sign in voluntarily however did so to avoid possible involuntary commitment to [facility]. Nursing admission note indicates that patient was preoccupied and staring inappropriately when he arrived to the floor. He admitted to signing the consent because "[place] Police forced me". Patient refused Risperdal and cogentin last night indicating he didn't need medication. Patient was pacing and becoming increasingly upset. Eventually he was given Haldol 5 mg and Ativan 2 mg IM for agitated behavior. This is very similar to his his prior admission in which he required Geodon IM on his first night for agitation. PSYCHIATRIC HISTORY {01/12/18-01/20/18} at [facility]. Patient brought in by his parents for evaluation and stabilization of disorganized thoughts,inability to sleep, hearing voices, self isolating. Pt presented to be disorganized, guarded, par anoid and agitated when arriving on the unit. He tried to elope from the unit and required IM medication Geodon and Ativan because patient was in danger to self or others. Discharged on: Invega Sustenna 156 mg IM ONCE on 01/19/18 Invega Sustenna 117 mg IM Q30D Cogentin 1 mg PO AMHS Benadryl 50 mg PO HS {2016} at [facility] and was put on Invega Sustenna. Collateral (patient's mother) verbalized that patient was linked to [facility] outpatient program. He was prescribed invega but refused to continue treatment and withdrew from [facility] outpatient program. Collateral stated that patient has not been on his medication for months. Patient was discharged 01/20/18 but notably very reluctant to agree to f/u with outpatient recommendations at discharge at that time. SOCIAL HISTORY Patient is single. Resides with family. UDS only + for cannabis PROGRESS NOTE 08/19/18 Patient's behavioral control has improved a little in the past 24 hours. He has also been compliant with recommended medications rispedal, cogentin and trazone. Patient received prns last night due to problems with sleeping. To review, patient required Haldol, Benadryl and Ativan IM in the AM prior to treatment team meeting on Friday08/17/18 and also required Haldol, Benadryl and Ativan po later in that evening. He has been restless, pacing, resistant and looking for ways to elope. He was notably argumentative,illogical and uncompromising during treatment team discussion. Patient put in a 48 hour notice thereafter and was accepted by [facility] screeners for involuntary commitment. He is awaiting a bed. OF NOTE: On Friday evening patient was escorted by 4 RNs to the quiet room and required IM prn for agitation and aggression. He tried to elope, a behavior he demonstrated during his prior admission in 12/2017. Patient generally doesn't want to speak with me even with gentle introduction and reassurance. I attempted to interview patient again in his room however he refused to engage. He reluctantly responds to staff members only when he needs something and this is usually by shaking or nodding his head. He is paranoid, anxious and preoccupied with poor insight and judgement. Though his behavior and compliance have been a little better in the past 12-24 hours, he remains unpredictable and an elopement risk. Diagnostic Results: Schizophrenia Medication Change: No (trazodone and risperdal increased) Medical Record Reviewed: Yes Mental Status Examination - Cognitive Function Orientation: Person, Place Memory: Impaired Attention: Poor Concentration: Poor Association: Loose Fund of Knowledge: Poor - Affect Affect: Constricted, Flat - Speech Speech: Soft - Formal Thought Process Formal Thought Process: Hallucinations, Delusions, Paranoia, Loosening of associations - Suicidal Ideation Suicidal Ideation: No - Homicidal Ideation Homicidal Ideation: No Goal/Treatment Plan - Goal/Treatment Plan Progress Toward Problem(s) and Goals/Treatment Plan: * Group, milieu and supportive tx * Appreciate f/u by Dr. Mcdonald/Dr. Krause on 08/16/18~Sinus Tachycardia; possibly related to anxiety.continue Ativan. Monitor heart rate closely. Signed off * Risperdal increased to 1 mg AM & 2 mg HS on 08/19/18. Continue Cogentin 1 mg AM & HS for EPS prophylaxis. * Consider decanoate however it has not been effective for compliance in the past * Haldol 5, Benadryl 25 mg and Ativan 2 mg po/IM prns * Trazodone 50 mg HS increased to 100 mg HS on 08/19/18 to help with sleep, off- label * Vitals reviewed and noted below: Selected Entries 08/17/18 08/18/18 08/18/18 07:20 07:00 16:00 Temperature 98.2 F 98.2 F Pulse Rate 90 90 99 H Respiratory 20 19 Rate Blood Pressure 111/68 113/68 102/64 * Pt seen in tx team meeting on 08/17/18 and demonstrated very little insight into need for medications. Placed a 48 hour notice after team meeting. Patient has been accepted for involuntary commitment to [facility] and is currently awaiting a bed. * Please refer to ER report dated 08/15/18 for ROS and physical exam findings. 08/15/18 22:20 -EKG: ST @ 112 BPM, no ST elevation or depression, no T wave inversion, normal AK/QRS/QT intervals. * Admission labs noted below: 08/16/18 08/16/18 08/16/18 07:00 07:00 07:00 Fasting Glucose 93 Triglycerides 65 Cholesterol 182 LDL Cholesterol Direct 120 HDL Cholesterol 41 Free T4 1.35 TSH 3rd Generation 0.40 L RPR Nonreactive Laboratory Tests 08/15/18 08/15/18 08/15/18 21:40 21:40 21:40 WBC 9.0 RBC 5.28 Hgb 15.0 Hct 44.9 MCV 85.0 MCH 28.4 MCHC 33.4 RDW 13.1 Plt Count 278 MPV 10.7 Neut % (Auto) 68.9 H Lymph % (Auto) 24.0 [facility] % (Auto) 6.8 H Eos % (Auto) 0.2 L Baso % (Auto) 0.1 Lymph # (Auto) 2.2 [facility] # (Auto) 0.6 Eos # (Auto) 0.0 Baso # (Auto) 0.01 Absolute Neuts (auto) 6.17 Sodium 140 Potassium 4.1 Chloride 99 Carbon Dioxide 25 Anion Gap 20 BUN 16 Creatinine 1.0 Est GFR ( Amer) > 60 Est GFR (Non-Af Amer) > 60 Random Glucose 104 Fasting Glucose Calcium 9.9 Total Bilirubin 0.6 AST 24 ALT 9 Alkaline Phosphatase 77 Troponin I Total Protein 8.8 H Albumin 5.1 H Globulin 3.7 Albumin/Globulin Ratio 1.4 Triglycerides Cholesterol LDL Cholesterol Direct HDL Cholesterol Free T4 TSH 3rd Generation Urine Color Urine Appearance Urine pH Ur Specific [place] Urine Protein Urine Glucose (UA) Urine Ketones Urine Blood Urine Nitrate Urine Bilirubin Urine Urobilinogen Ur Leukocyte Esterase Urine RBC Urine WBC Ur Epithelial Cells Amorphous Sediment Urine Bacteria Urine Other Urine Opiates Screen Urine Methadone Screen Ur Barbiturates Screen Ur Phencyclidine Scrn Ur Amphetamines Screen U Benzodiazepines Scrn U Oth Cocaine Metabols U Cannabinoids Screen Alcohol, Quantitative < 10 08/15/18 08/15/18 08/15/18 21:40 22:30 22:30 WBC RBC Hgb Hct MCV MCH MCHC RDW Plt Count MPV Neut % (Auto) Lymph % (Auto) [facility] % (Auto) Eos % (Auto) Baso % (Auto) Lymph # (Auto) [facility] # (Auto) Eos # (Auto) Baso # (Auto) Absolute Neuts (auto) Sodium Potassium Chloride Carbon Dioxide Anion Gap BUN Creatinine Est GFR ( Amer) Est GFR (Non-Af Amer) Random Glucose Fasting Glucose Calcium Total Bilirubin AST ALT Alkaline Phosphatase Troponin I < 0.01 Total Protein Albumin Globulin Albumin/Globulin Ratio Triglycerides Cholesterol LDL Cholesterol Direct HDL Cholesterol Free T4 TSH 3rd Generation Urine Color Yellow Urine Appearance Sl cloudy Urine pH 6.5 Ur Specific [place] 1.020 Urine Protein Trace H Urine Glucose (UA) Negative Urine Ketones 15 H Urine Blood Negative Urine Nitrate Negative Urine Bilirubin Negative Urine Urobilinogen 1.0 H Ur Leukocyte Esterase Negative Urine RBC 0 - 2 Urine WBC 0 - 2 Ur Epithelial Cells None Amorphous Sediment Few Urine Bacteria Many Urine Other Uyeast Urine Opiates Screen Negative Urine Methadone Screen Negative Ur Barbiturates Screen Negative Ur Phencyclidine Scrn Negative Ur Amphetamines Screen Negative U Benzodiazepines Scrn Negative U Oth Cocaine Metabols Negative U Cannabinoids Screen Positive H Alcohol, Quantitative 08/16/18 08/16/18 07:00 07:00 WBC RBC Hgb Hct MCV MCH MCHC RDW Plt Count MPV Neut % (Auto) Lymph % (Auto) [facility] % (Auto) Eos % (Auto) Baso % (Auto) Lymph # (Auto) [facility] # (Auto) Eos # (Auto) Baso # (Auto) Absolute Neuts (auto) Sodium Potassium Chloride Carbon Dioxide Anion Gap BUN Creatinine Est GFR ( Amer) Est GFR (Non-Af Amer) Random Glucose Fasting Glucose 93 Calcium Total Bilirubin AST ALT Alkaline Phosphatase Troponin I Total Protein Albumin Globulin Albumin/Globulin Ratio Triglycerides 65 Cholesterol 182 LDL Cholesterol Direct 120 HDL Cholesterol 41 Free T4 1.35 TSH 3rd Generation 0.40 L Urine Color Urine Appearance Urine pH Ur Specific [place] Urine Protein Urine Glucose (UA) Urine Ketones Urine Blood Urine Nitrate Urine Bilirubin Urine Urobilinogen Ur Leukocyte Esterase Urine RBC Urine WBC Ur Epithelial Cells Amorphous Sediment Urine Bacteria Urine Other Urine Opiates Screen Urine Methadone Screen Ur Barbiturates Screen Ur Phencyclidine Scrn Ur Amphetamines Screen U Benzodiazepines Scrn U Oth Cocaine Metabols U Cannabinoids Screen Alcohol, Quantitative
--- NOTE | 2018-08-20 09:36 | PCM.PYCHPN ---
Psychiatric Progress Note - Psychiatric Progress Note Patient seen today, length of contact: 25 min Problems Identified/Issues Discussed: History of Present Illness and Precipitating Events: Patient is a 28 year old [place]ian male with reported history of Schizophrenia, 2 psychiatric admissions, {01/12/18-01/20/18 at [facility] and 2016 admission to [facility]}, repeated history of noncompliance with PO meds and injectables who was BIBA with the police and family because of the bizarre behavior at home yesterday evening 08/15/18. Most of patient's information was obtained from review of his chart as patient was not cooperative with an interview this morning. He was also resistant and uncooperative with floor staff upon his arrival last night, refusing to take prescribed medications. Records indicate that patient came home yesterday evening and started to cry and smile without speaking. PES clinician spoke with patient's mother Ivelisse Manzo and she presented a video of patient screaming, laughing and punching his chest. Collateral verbalized that when patient decompensates he primarily laughs and yells. Patient was reluctant to sign in voluntarily however did so to avoid possible involuntary commitment to [facility]. Nursing admission note indicates that patient was preoccupied and staring inappropriately when he arrived to the floor. He admitted to signing the consent because "[place] Police forced me". Patient refused Risperdal and cogentin last night indicating he didn't need medication. Patient was pacing and becoming increasingly upset. Eventually he was given Haldol 5 mg and Ativan 2 mg IM for agitated behavior. This is very similar to his his prior admission in which he required Geodon IM on his first night for agitation. PSYCHIATRIC HISTORY {01/12/18-01/20/18} at [facility]. Patient brought in by his parents for evaluation and stabilization of disorganized thoughts,inability to sleep, hearing voices, self isolating. Pt presented to be disorganized, guarded, par anoid and agitated when arriving on the unit. He tried to elope from the unit and required IM medication Geodon and Ativan because patient was in danger to self or others. Discharged on: Invega Sustenna 156 mg IM ONCE on 01/19/18 Invega Sustenna 117 mg IM Q30D Cogentin 1 mg PO AMHS Benadryl 50 mg PO HS {2016} at [facility] and was put on Invega Sustenna. Collateral (patient's mother) verbalized that patient was linked to [facility]'s outpatient program. He was prescribed invega but refused to continue treatment and withdrew from [facility]'s outpatient program. Collateral stated that patient has not been on his medication for months. Patient was discharged 01/20/18 but notably very reluctant to agree to f/u with outpatient recommendations at discharge at that time. SOCIAL HISTORY Patient is single. Resides with family. UDS only + for cannabis PROGRESS NOTE 08/20/18 Patient's behavioral control has improved a little in the past 24-48 hours. He has also been compliant with recommended medications rispedal, cogentin and trazodone. Patient received prns again last night due to problems with sleeping. He is more visible on the unit and now willing to speak with me about his treatment plan. However his insight remains very poor and he asks repeatedly about discharge indicating that he really doesn't want to be here and take m edications. Patient still looks paranoid, anxious and preoccupied. Though his behavior and compliance have been a little better in the past 24-48 hours, he remains unpredictable and an elopement risk. To review, patient required Haldol, Benadryl and Ativan IM in the AM prior to treatment team meeting on Friday08/17/18 and also required Haldol, Benadryl and Ativan po later in that evening. He has been restless, pacing, resistant and looking for ways to elope. He was notably argumentative,illogical and uncompromising during treatment team discussion. Patient put in a 48 hour notice thereafter and was accepted by [facility] screeners for involuntary commitment. OF NOTE: On Friday evening patient was escorted by 4 RNs to the quiet room and required IM prn for agitation and aggression. He tried to elope, a behavior he demonstrated during his prior admission in 12/2017. Diagnostic Results: Schizophrenia Medication Change: Yes ( risperdal increased, standing ativan initiated) Medical Record Reviewed: Yes Mental Status Examination - Cognitive Function Orientation: Person, Place Memory: Impaired Attention: Poor Concentration: Poor Association: Loose Fund of Knowledge: Poor - Mood Mood: Neutral - Affect Affect: Constricted, Flat - Speech Speech: Soft - Formal Thought Process Formal Thought Process: Hallucinations, Delusions, Paranoia, Loosening of associations - Suicidal Ideation Suicidal Ideation: No - Homicidal Ideation Homicidal Ideation: No Goal/Treatment Plan - Goal/Treatment Plan Progress Toward Problem(s) and Goals/Treatment Plan: * Group, milieu and supportive tx * Appreciate f/u by Dr. Mcdonald/Dr. Krause on 08/16/18~Sinus Tachycardia; possibly related to anxiety.continue Ativan. Monitor heart rate closely. Signed off * Risperdal increased to 2 mg AM & 3 mg HS on 08/20/18. Continue Cogentin 1 mg AM & HS for EPS prophylaxis. * Consider decanoate however it has not been effective for compliance in the past * Haldol 5, Benadryl 25 mg and Ativan 2 mg po/IM prns * Trazodone 50 mg HS increased to 100 mg HS on 08/19/18 to help with sleep, off- label * Ativan 1 mg po HS added on 08/20/18 for restlessness/EPS prophylaxis/mood contr ol and insomnia * Vitals reviewed and noted below: 08/19/18 08/19/18 07:14 16:00 Temperature 97.2 F L Pulse Rate 54 L 65 Respiratory 18 Rate Blood Pressure 95/52 L 105/64 * Pt seen in tx team meeting on 08/17/18 and demonstrated very little insight into need for medications. Placed a 48 hour notice after team meeting. Patient has been accepted for involuntary commitment to [facility] however retracted his 48 hour notice on 08/19/18. * Please refer to ER report dated 08/15/18 for ROS and physical exam findings. 08/15/18 22:20 -EKG: ST @ 112 BPM, no ST elevation or depression, no T wave inversion, normal [place]/QRS/QT intervals. * Admission labs noted below: 08/16/18 08/16/18 08/16/18 07:00 07:00 07:00 Fasting Glucose 93 Triglycerides 65 Cholesterol 182 LDL Cholesterol Direct 120 HDL Cholesterol 41 Free T4 1.35 TSH 3rd Generation 0.40 L RPR Nonreactive Laboratory Tests 08/15/18 08/15/18 08/15/18 21:40 21:40 21:40 WBC 9.0 RBC 5.28 Hgb 15.0 Hct 44.9 MCV 85.0 MCH 28.4 MCHC 33.4 RDW 13.1 Plt Count 278 MPV 10.7 Neut % (Auto) 68.9 H Lymph % (Auto) 24.0 [place] % (Auto) 6.8 H Eos % (Auto) 0.2 L Baso % (Auto) 0.1 Lymph # (Auto) 2.2 [place] # (Auto) 0.6 Eos # (Auto) 0.0 Baso # (Auto) 0.01 Absolute Neuts (auto) 6.17 Sodium 140 Potassium 4.1 Chloride 99 Carbon Dioxide 25 Anion Gap 20 BUN 16 Creatinine 1.0 Est GFR ( Amer) > 60 Est GFR (Non-Af Amer) > 60 Random Glucose 104 Fasting Glucose Calcium 9.9 Total Bilirubin 0.6 AST 24 ALT 9 Alkaline Phosphatase 77 Troponin I Total Protein 8.8 H Albumin 5.1 H Globulin 3.7 Albumin/Globulin Ratio 1.4 Triglycerides Cholesterol LDL Cholesterol Direct HDL Cholesterol Free T4 TSH 3rd Generation Urine Color Urine Appearance Urine pH Ur Specific [place] Urine Protein Urine Glucose (UA) Urine Ketones Urine Blood Urine Nitrate Urine Bilirubin Urine Urobilinogen Ur Leukocyte Esterase Urine RBC Urine WBC Ur Epithelial Cells Amorphous Sediment Urine Bacteria Urine Other Urine Opiates Screen Urine Methadone Screen Ur Barbiturates Screen Ur Phencyclidine Scrn Ur Amphetamines Screen U Benzodiazepines Scrn U Oth Cocaine Metabols U Cannabinoids Screen Alcohol, Quantitative < 10 08/15/18 08/15/18 08/15/18 21:40 22:30 22:30 WBC RBC Hgb Hct MCV MCH MCHC RDW Plt Count MPV Neut % (Auto) Lymph % (Auto) [place] % (Auto) Eos % (Auto) Baso % (Auto) Lymph # (Auto) [place] # (Auto) Eos # (Auto) Baso # (Auto) Absolute Neuts (auto) Sodium Potassium Chloride Carbon Dioxide Anion Gap BUN Creatinine Est GFR ( Amer) Est GFR (Non-Af Amer) Random Glucose Fasting Glucose Calcium Total Bilirubin AST ALT Alkaline Phosphatase Troponin I < 0.01 Total Protein Albumin Globulin Albumin/Globulin Ratio Triglycerides Cholesterol LDL Cholesterol Direct HDL Cholesterol Free T4 TSH 3rd Generation Urine Color Yellow Urine Appearance Sl cloudy Urine pH 6.5 Ur Specific [place] 1.020 Urine Protein Trace H Urine Glucose (UA) Negative Urine Ketones 15 H Urine Blood Negative Urine Nitrate Negative Urine Bilirubin Negative Urine Urobilinogen 1.0 H Ur Leukocyte Esterase Negative Urine RBC 0 - 2 Urine WBC 0 - 2 Ur Epithelial Cells None Amorphous Sediment Few Urine Bacteria Many Urine Other Uyeast Urine Opiates Screen Negative Urine Methadone Screen Negative Ur Barbiturates Screen Negative Ur Phencyclidine Scrn Negative Ur Amphetamines Screen Negative U Benzodiazepines Scrn Negative U Oth Cocaine Metabols Negative U Cannabinoids Screen Positive H Alcohol, Quantitative 08/16/18 08/16/18 07:00 07:00 WBC RBC Hgb Hct MCV MCH MCHC RDW Plt Count MPV Neut % (Auto) Lymph % (Auto) [place] % (Auto) Eos % (Auto) Baso % (Auto) Lymph # (Auto) [place] # (Auto) Eos # (Auto) Baso # (Auto) Absolute Neuts (auto) Sodium Potassium Chloride Carbon Dioxide Anion Gap BUN Creatinine Est GFR ( Amer) Est GFR (Non-Af Amer) Random Glucose Fasting Glucose 93 Calcium Total Bilirubin AST ALT Alkaline Phosphatase Troponin I Total Protein Albumin Globulin Albumin/Globulin Ratio Triglycerides 65 Cholesterol 182 LDL Cholesterol Direct 120 HDL Cholesterol 41 Free T4 1.35 TSH 3rd Generation 0.40 L Urine Color Urine Appearance Urine pH Ur Specific [place] Urine Protein Urine Glucose (UA) Urine Ketones Urine Blood Urine Nitrate Urine Bilirubin Urine Urobilinogen Ur Leukocyte Esterase Urine RBC Urine WBC Ur Epithelial Cells Amorphous Sediment Urine Bacteria Urine Other Urine Opiates Screen Urine Methadone Screen Ur Barbiturates Screen Ur Phencyclidine Scrn Ur Amphetamines Screen U Benzodiazepines Scrn U Oth Cocaine Metabols U Cannabinoids Screen Alcohol, Quantitative
--- NOTE | 2018-08-21 15:47 | PCM.PYCHPN ---
Psychiatric Progress Note - Psychiatric Progress Note Patient seen today, length of contact: 25 min Problems Identified/Issues Discussed: History of Present Illness and Precipitating Events: Patient is a 28 year old Thai male with reported history of Schizophrenia, 2 psychiatric admissions, {01/12/18-01/20/18 at [facility] and 2016 admission to [facility]}, repeated history of noncompliance with PO meds and injectables who was BIBA with the police and family because of the bizarre behavior at home yesterday evening 08/15/18. Most of patient's information was obtained from review of his chart as patient was not cooperative with an interview this morning. He was also resistant and uncooperative with floor staff upon his arrival last night, refusing to take prescribed medications. Records indicate that patient came home yesterday evening and started to cry and smile without speaking. PES clinician spoke with patient's mother Ivelisse Manzo and she presented a video of patient screaming, laughing and punching his chest. Collateral verbalized that when patient decompensates he primarily laughs and yells. Patient was reluctant to sign in voluntarily however did so to avoid possible involuntary commitment to [facility]. Nursing admission note indicates that patient was preoccupied and staring inappropriately when he arrived to the floor. He admitted to signing the consent because "[place] Police forced me". Patient refused Risperdal and cogentin last night indicating he didn't need medication. Patient was pacing and becoming increasingly upset. Eventually he was given Haldol 5 mg and Ativan 2 mg IM for agitated behavior. This is very similar to his his prior admission in which he required Geodon IM on his first night for agitation. PSYCHIATRIC HISTORY {01/12/18-01/20/18} at [facility]. Patient brought in by his parents for evaluation and stabilization of disorganized thoughts,inability to sleep, hearing voices, self isolating. Pt presented to be disorganized, guarded, par anoid and agitated when arriving on the unit. He tried to elope from the unit and required IM medication Geodon and Ativan because patient was in danger to self or others. Discharged on: Invega Sustenna 156 mg IM ONCE on 01/19/18 Invega Sustenna 117 mg IM Q30D Cogentin 1 mg PO AMHS Benadryl 50 mg PO HS {2016} at [facility] and was put on Invega Sustenna. Collateral (patient's mother) verbalized that patient was linked to [facility] outpatient program. He was prescribed invega but refused to continue treatment and withdrew from [facility] outpatient program. Collateral stated that patient has not been on his medication for months. Patient was discharged 01/20/18 but notably very reluctant to agree to f/u with outpatient recommendations at discharge at that time. SOCIAL HISTORY Patient is single. Resides with family. UDS only + for cannabis PROGRESS NOTE 08/21/18 Patient's behavioral control has improved a little in the past 48 hours. He has also been compliant with recommended medications risperdal, cogentin and trazodone. Patient reported sleeping better last night with recent change in medications. He remains a little more visible on the unit and now willing to speak with me, though reluctantly, about his treatment plan. His insight remains very poor and again, he asks repeatedly about discharge indicating that he really doesn't want to be here and take medications. Patient still looks paranoid, anxious and preoccupied. Though his behavior and compliance have been a little better in the past 24-48 hours, he remains unpredictable and an elopement risk. I request that patient attempt to engage more in unit activities and with other patients. To review, patient required Haldol, Benadryl and Ativan IM in the AM prior to treatment team meeting on Friday08/17/18 and also required Haldol, Benadryl and Ativan po later in that evening. He has been restless, pacing, resistant and looking for ways to elope. He was notably argumentative,illogical and uncompromising during treatment team discussion. Patient put in a 48 hour notice thereafter and was accepted by [facility] screeners for involuntary commitment. OF NOTE: On Friday evening patient was escorted by 4 RNs to the quiet room and required IM prn for agitation and aggression. He tried to elope, a behavior he demonstrated during his prior admission in 12/2017. 08/21/18 01:25 - Nursing Note by Maria G Barajas Acct Num: [id number] : 1990 Patient Age: 28 Patient is alert oriented X3. Mood is OK affect is flat. Seen pacing around the unit, has fair hygiene and time to time simile inappropriately. Encourage to express feeling and thoughts. after 1:1 nursing intervention went to social area and stayed isolative. Denies anxious feeling, or any suicidal or homicidal Ideation. Denies any auditory or visual hallucination. Complain with meds,no adverse reaction noted. Voiced no complain of pain or discomfort. Will continue to monitor and provide support as needed, Q15 min safety round in progress. Initialized on 08/21/18 01:25 - END OF NOTE 08/20/18 16:54 - Psych B.I.R.P - [facility]: [id number] : 1990 Patient Age: 28 B: out of bed for am routine.am care done indepedently. mood is anxious and affect is congruent with mood. patient express desire to go home.asking staff when can he go home. explanation given how discharge process . no suicidal ideation verbalized. denies a/v hallucination. patient ambulate around the unit with peers. I: will continue to monitor his behavior. emotional and reassurance given as needed. R: patient remain pacing around the unit.compliant with medication. P: continue plan of care. safety check done every 15 minutes. Initialized on 08/20/18 16:54 - END OF NOTE 08/19/18 23:07 - [facility]: [id number] : 1990 Patient Age: 28 Received Patient in the room lying on the bed,alert and verbally responsive. Encouraged patient to be out in the community. Patient came out of his room, seen pacing the hallway. Smiles inappropriately. Dressed in the street clothes,fair hygiene. Mood "OK" affect less disorganized. Denied suicidal or homicidal ideation. Denied auditory or visual hallucinations. Encouraged to verbalize the feelings and concerns. Minimal peer interaction noted. No complaints offered no management issues noted. Complaint with the meds. No complain of pain or discomfort voiced. No side effects to the meds noted. Q15 minute observation is in progress. Will continue to monitor and provide support as needed. Diagnostic Results: Schizophrenia Medication Change: No ( ) Medical Record Reviewed: Yes Mental Status Examination - Cognitive Function Orientation: Person, Place Memory: Impaired Attention: Poor Concentration: Poor Association: Loose Fund of Knowledge: Poor - Mood Mood: Neutral - Affect Affect: Constricted, Flat - Speech Speech: Soft - Formal Thought Process Formal Thought Process: Hallucinations (denied today but he is preoccupied, guarded and unhappy), Delusions, Paranoia, Loosening of associations - Suicidal Ideation Suicidal Ideation: No - Homicidal Ideation Homicidal Ideation: No Goal/Treatment Plan - Goal/Treatment Plan Progress Toward Problem(s) and Goals/Treatment Plan: * Group, milieu and supportive tx * Appreciate f/u by Dr. Mcdonald/Dr. Krause on 08/16/18~Sinus Tachycardia; possibly related to anxiety.continue Ativan. Monitor heart rate closely. Signed off * Risperdal increased to 2 mg AM & 3 mg HS on 08/20/18. Continue Cogentin 1 mg AM & HS for EPS prophylaxis. * Consider decanoate however it has not been effective for compliance in the past * Haldol 5, Benadryl 25 mg and Ativan 2 mg po/IM prns * Trazodone 50 mg HS increased to 100 mg HS on 08/19/18 to help with sleep, off- label * Ativan 1 mg po HS added on 08/20/18 for restlessness/EPS prophylaxis/mood control and insomnia * Vitals reviewed and noted below: Selected Entries 08/20/18 08/20/18 07:38 16:00 Temperature 97.4 F L Pulse Rate 65 123 H Respiratory 20 Rate Blood Pressure 104/56 L 124/69 * Pt seen in tx team meeting on 08/17/18 and demonstrated very little insight into need for medications. Placed a 48 hour notice after team meeting. Patient has been accepted for involuntary commitment to [facility] however retracted his 48 hour notice on 08/19/18. * Please refer to ER report dated 08/15/18 for ROS and physical exam findings. 08/15/18 22:20 -EKG: ST @ 112 BPM, no ST elevation or depression, no T wave inversion, normal IN/QRS/QT intervals. * Admission labs noted below: 08/16/18 08/16/1808/16/19 07:00 07:00 07:00 Fasting Glucose 93 Triglycerides 65 Cholesterol 182 LDL Cholesterol Direct 120 HDL Cholesterol 41 Free T4 1.35 TSH 3rd Generation 0.40 L RPR Nonreactive Laboratory Tests 08/15/18 08/15/18 08/15/18 21:40 21:40 21:40 WBC 9.0 RBC 5.28 Hgb 15.0 Hct 44.9 MCV 85.0 MCH 28.4 MCHC 33.4 RDW 13.1 Plt Count 278 MPV 10.7 Neut % (Auto) 68.9 H Lymph % (Auto) 24.0 [place] % (Auto) 6.8 H Eos % (Auto) 0.2 L Baso % (Auto) 0.1 Lymph # (Auto) 2.2 [place] # (Auto) 0.6 Eos # (Auto) 0.0 Baso # (Auto) 0.01 Absolute Neuts (auto) 6.17 Sodium 140 Potassium 4.1 Chloride 99 Carbon Dioxide 25 Anion Gap 20 BUN 16 Creatinine 1.0 Est GFR ( Amer) > 60 Est GFR (Non-Af Amer) > 60 Random Glucose 104 Fasting Glucose Calcium 9.9 Total Bilirubin 0.6 AST 24 ALT 9 Alkaline Phosphatase 77 Troponin I Total Protein 8.8 H Albumin 5.1 H Globulin 3.7 Albumin/Globulin Ratio 1.4 Triglycerides Cholesterol LDL Cholesterol Direct HDL Cholesterol Free T4 TSH 3rd Generation Urine Color Urine Appearance Urine pH Ur Specific [place] Urine Protein Urine Glucose (UA) Urine Ketones Urine Blood Urine Nitrate Urine Bilirubin Urine Urobilinogen Ur Leukocyte Esterase Urine RBC Urine WBC Ur Epithelial Cells Amorphous Sediment Urine Bacteria Urine Other Urine Opiates Screen Urine Methadone Screen Ur Barbiturates Screen Ur Phencyclidine Scrn Ur Amphetamines Screen U Benzodiazepines Scrn U Oth Cocaine Metabols U Cannabinoids Screen Alcohol, Quantitative < 10 08/15/18 08/15/18 08/15/18 21:40 22:30 22:30 WBC RBC Hgb Hct MCV MCH MCHC RDW Plt Count MPV Neut % (Auto) Lymph % (Auto) [place] % (Auto) Eos % (Auto) Baso % (Auto) Lymph # (Auto) [place] # (Auto) Eos # (Auto) Baso # (Auto) Absolute Neuts (auto) Sodium Potassium Chloride Carbon Dioxide Anion Gap BUN Creatinine Est GFR ( Amer) Est GFR (Non-Af Amer) Random Glucose Fasting Glucose Calcium Total Bilirubin AST ALT Alkaline Phosphatase Troponin I < 0.01 Total Protein Albumin Globulin Albumin/Globulin Ratio Triglycerides Cholesterol LDL Cholesterol Direct HDL Cholesterol Free T4 TSH 3rd Generation Urine Color Yellow Urine Appearance Sl cloudy Urine pH 6.5 Ur Specific [place] 1.020 Urine Protein Trace H Urine Glucose (UA) Negative Urine Ketones 15 H Urine Blood Negative Urine Nitrate Negative Urine Bilirubin Negative Urine Urobilinogen 1.0 H Ur Leukocyte Esterase Negative Urine RBC 0 - 2 Urine WBC 0 - 2 Ur Epithelial Cells None Amorphous Sediment Few Urine Bacteria Many Urine Other Uyeast Urine Opiates Screen Negative Urine Methadone Screen Negative Ur Barbiturates Screen Negative Ur Phencyclidine Scrn Negative Ur Amphetamines Screen Negative U Benzodiazepines Scrn Negative U Oth Cocaine Metabols Negative U Cannabinoids Screen Positive H Alcohol, Quantitative 08/16/18 08/16/18 07:00 07:00 WBC RBC Hgb Hct MCV MCH MCHC RDW Plt Count MPV Neut % (Auto) Lymph % (Auto) [place] % (Auto) Eos % (Auto) Baso % (Auto) Lymph # (Auto) [place] # (Auto) Eos # (Auto) Baso # (Auto) Absolute Neuts (auto) Sodium Potassium Chloride Carbon Dioxide Anion Gap BUN Creatinine Est GFR ( Amer) Est GFR (Non-Af Amer) Random Glucose Fasting Glucose 93 Calcium Total Bilirubin AST ALT Alkaline Phosphatase Troponin I Total Protein Albumin Globulin Albumin/Globulin Ratio Triglycerides 65 Cholesterol 182 LDL Cholesterol Direct 120 HDL Cholesterol 41 Free T4 1.35 TSH 3rd Generation 0.40 L Urine Color Urine Appearance Urine pH Ur Specific [place] Urine Protein Urine Glucose (UA) Urine Ketones Urine Blood Urine Nitrate Urine Bilirubin Urine Urobilinogen Ur Leukocyte Esterase Urine RBC Urine WBC Ur Epithelial Cells Amorphous Sediment Urine Bacteria Urine Other Urine Opiates Screen Urine Methadone Screen Ur Barbiturates Screen Ur Phencyclidine Scrn Ur Amphetamines Screen U Benzodiazepines Scrn U Oth Cocaine Metabols U Cannabinoids Screen Alcohol, Quantitative
--- NOTE | 2018-08-22 09:12 | PCM.PYCHPN ---
Psychiatric Progress Note - Psychiatric Progress Note Patient seen today, length of contact: 25 min Problems Identified/Issues Discussed: History of Present Illness and Precipitating Events: Patient is a 28 year old Uz[place] male with reported history of Schizophrenia, 2 psychiatric admissions, {01/12/18-01/20/18 at [facility] and 2016 admission to [facility]}, repeated history of noncompliance with PO meds and injectables who was BIBA with the police and family because of the bizarre behavior at home yesterday evening 08/15/18. Most of patient's information was obtained from review of his chart as patient was not cooperative with an interview this morning. He was also resistant and uncooperative with floor staff upon his arrival last night, refusing to take prescribed medications. Records indicate that patient came home yesterday evening and started to cry and smile without speaking. PES clinician spoke with patient's mother Ivelisse Manzo and she presented a video of patient screaming, laughing and punching his chest. Collateral verbalized that when patient decompensates he primarily laughs and yells. Patient was reluctant to sign in voluntarily however did so to avoid possible involuntary commitment to [facility]. Nursing admission note indicates that patient was preoccupied and staring inappropriately when he arrived to the floor. He admitted to signing the consent because "[place] Police forced me". Patient refused Risperdal and cogentin last night indicating he didn't need medication. Patient was pacing and becoming increasingly upset. Eventually he was given Haldol 5 mg and Ativan 2 mg IM for agitated behavior. This is very similar to his his prior admission in which he required Geodon IM on his first night for agitation. PSYCHIATRIC HISTORY {01/12/18-01/20/18} at [facility]. Patient brought in by his parents for evaluation and stabilization of disorganized thoughts,inability to sleep, hearing voices, self isolating. Pt presented to be disorganized, guarded, par anoid and agitated when arriving on the unit. He tried to elope from the unit and required IM medication Geodon and Ativan because patient was in danger to self or others. Discharged on: Invega Sustenna 156 mg IM ONCE on 01/19/18 Invega Sustenna 117 mg IM Q30D Cogentin 1 mg PO AMHS Benadryl 50 mg PO HS {2016} at [facility] and was put on Invega Sustenna. Collateral (patient's mother) verbalized that patient was linked to [facility]'s outpatient program. He was prescribed invega but refused to continue treatment and withdrew from [facility] outpatient program. Collateral stated that patient has not been on his medication for months. Patient was discharged 01/20/18 but notably very reluctant to agree to f/u with outpatient recommendations at discharge at that time. SOCIAL HISTORY Patient is single. Resides with family. UDS only + for cannabis PROGRESS NOTE 08/22/18 Patient's behavioral control has improved 2-3 days. He has also been compliant with recommended medications risperdal, cogentin and trazodone. Patient reported sleeping well and denies new concerns. Oriented x3. He willingly speaks with me but doesn't appear too enthusiastic about discussing his progress or medications. Patient agrees that his clarity and communication have improved since arriving on the unit however believes it is secondary to "being able to rest and sleep". His insight remains very poor in this respect. Patient still looks a litle paranoid, anxious and preoccupied but not hypervigilant, sneaky or hostile.Though his behavior, cooperation and control have improved in the past 2-3 days, he remains an elopement risk. To review, patient required Haldol, Benadryl and Ativan IM in the AM prior to treatment team meeting on Friday08/17/18 and also required Haldol, Benadryl and Ativan po later in that evening. He has been restless, pacing, resistant and looking for ways to elope. He was notably argumentative,illogical and uncompromi sing during treatment team discussion. Patient put in a 48 hour notice thereafter and was accepted by [facility] screeners for involuntary commitment. OF NOTE: On Friday evening patient was escorted by 4 RNs to the quiet room and required IM prn for agitation and aggression. He tried to elope, a behavior he demonstrated during his prior admission in 12/2017. Diagnostic Results: Schizophrenia Medication Change: No ( ) Medical Record Reviewed: Yes Mental Status Examination - Cognitive Function Orientation: Person, Place Memory: Impaired Attention: Poor Concentration: Poor Association: Loose Fund of Knowledge: Poor - Mood Mood: Neutral - Affect Affect: Constricted, Flat - Speech Speech: Soft - Formal Thought Process Formal Thought Process: Hallucinations (denied today but he is preoccupied, guarded and unhappy), Delusions, Paranoia, Loosening of associations - Suicidal Ideation Suicidal Ideation: No - Homicidal Ideation Homicidal Ideation: No Goal/Treatment Plan - Goal/Treatment Plan Progress Toward Problem(s) and Goals/Treatment Plan: * Group, milieu and supportive tx * Appreciate f/u by Dr. Mcdonald/Dr. Krause on 08/16/18~Sinus Tachycardia; possibly related to anxiety.continue Ativan. Monitor heart rate closely. Signed off * Risperdal increased to 2 mg AM & 3 mg HS on 08/20/18. Continue Cogentin 1 mg AM & HS for EPS prophylaxis. * Consider decanoate however it has not been effective for compliance in the past * Haldol 5, Benadryl 25 mg and Ativan 2 mg po/IM prns * Trazodone 50 mg HS increased to 100 mg HS on 08/19/18 to help with sleep, off- label * Ativan 1 mg po HS added on 08/20/18 for restlessness/EPS prophylaxis/mood control and insomnia * Vitals reviewed and noted below: Selected Entries 08/21/18 08/21/18 07:18 16:27 Temperature 97.9 F Pulse Rate 74 85 Respiratory 20 Rate Blood Pressure 103/62 111/68 * Pt seen in tx team meeting on 08/17/18 and demonstrated very little insight into need for medications. Placed a 48 hour notice after team meeting. Patient has been accepted for involuntary commitment to [facility] however retracted his 48 hour notice on 08/19/18. * Please refer to ER report dated 08/15/18 for ROS and physical exam findings. 08/15/18 22:20 -EKG: ST @ 112 BPM, no ST elevation or depression, no T wave inversion, normal UT/QRS/QT intervals. * Admission labs noted below: 08/16/18 08/16/18 08/16/18 07:00 07:00 07:00 Fasting Glucose 93 Triglycerides 65 Cholesterol 182 LDL Cholesterol Direct 120 HDL Cholesterol 41 Free T4 1.35 TSH 3rd Generation 0.40 L RPR Nonreactive Laboratory Tests 08/15/18 08/15/18 08/15/18 21:40 21:40 21:40 WBC 9.0 RBC 5.28 Hgb 15.0 Hct 44.9 MCV 85.0 MCH 28.4 MCHC 33.4 RDW 13.1 Plt Count 278 MPV 10.7 Neut % (Auto) 68.9 H Lymph % (Auto) 24.0 [place] % (Auto) 6.8 H Eos % (Auto) 0.2 L Baso % (Auto) 0.1 Lymph # (Auto) 2.2 [place] # (Auto) 0.6 Eos # (Auto) 0.0 Baso # (Auto) 0.01 Absolute Neuts (auto) 6.17 Sodium 140 Potassium 4.1 Chloride 99 Carbon Dioxide 25 Anion Gap 20 BUN 16 Creatinine 1.0 Est GFR ( Amer) > 60 Est GFR (Non-Af Amer) > 60 Random Glucose 104 Fasting Glucose Calcium 9.9 Total Bilirubin 0.6 AST 24 ALT 9 Alkaline Phosphatase 77 Troponin I Total Protein 8.8 H Albumin 5.1 H Globulin 3.7 Albumin/Globulin Ratio 1.4 Triglycerides Cholesterol LDL Cholesterol Direct HDL Cholesterol Free T4 TSH 3rd Generation Urine Color Urine Appearance Urine pH Ur Specific [place] Urine Protein Urine Glucose (UA) Urine Ketones Urine Blood Urine Nitrate Urine Bilirubin Urine Urobilinogen Ur Leukocyte Esterase Urine RBC Urine WBC Ur Epithelial Cells Amorphous Sediment Urine Bacteria Urine Other Urine Opiates Screen Urine Methadone Screen Ur Barbiturates Screen Ur Phencyclidine Scrn Ur Amphetamines Screen U Benzodiazepines Scrn U Oth Cocaine Metabols U Cannabinoids Screen Alcohol, Quantitative < 10 08/15/18 08/15/18 08/15/18 21:40 22:30 22:30 WBC RBC Hgb Hct MCV MCH MCHC RDW Plt Count MPV Neut % (Auto) Lymph % (Auto) [place] % (Auto) Eos % (Auto) Baso % (Auto) Lymph # (Auto) [place] # (Auto) Eos # (Auto) Baso # (Auto) Absolute Neuts (auto) Sodium Potassium Chloride Carbon Dioxide Anion Gap BUN Creatinine Est GFR ( Amer) Est GFR (Non-Af Amer) Random Glucose Fasting Glucose Calcium Total Bilirubin AST ALT Alkaline Phosphatase Troponin I < 0.01 Total Protein Albumin Globulin Albumin/Globulin Ratio Triglycerides Cholesterol LDL Cholesterol Direct HDL Cholesterol Free T4 TSH 3rd Generation Urine Color Yellow Urine Appearance Sl cloudy Urine pH 6.5 Ur Specific [place] 1.020 Urine Protein Trace H Urine Glucose (UA) Negative Urine Ketones 15 H Urine Blood Negative Urine Nitrate Negative Urine Bilirubin Negative Urine Urobilinogen 1.0 H Ur Leukocyte Esterase Negative Urine RBC 0 - 2 Urine WBC 0 - 2 Ur Epithelial Cells None Amorphous Sediment Few Urine Bacteria Many Urine Other [place]yeast Urine Opiates Screen Negative Urine Methadone Screen Negative Ur Barbiturates Screen Negative Ur Phencyclidine Scrn Negative Ur Amphetamines Screen Negative U Benzodiazepines Scrn Negative U Oth Cocaine Metabols Negative U Cannabinoids Screen Positive H Alcohol, Quantitative 08/16/18 08/16/18 07:00 07:00 WBC RBC Hgb Hct MCV MCH MCHC RDW Plt Count MPV Neut % (Auto) Lymph % (Auto) [place] % (Auto) Eos % (Auto) Baso % (Auto) Lymph # (Auto) [place] # (Auto) Eos # (Auto) Baso # (Auto) Absolute Neuts (auto) Sodium Potassium Chloride Carbon Dioxide Anion Gap BUN Creatinine Est GFR ( Amer) Est GFR (Non-Af Amer) Random Glucose Fasting Glucose 93 Calcium Total Bilirubin AST ALT Alkaline Phosphatase Troponin I Total Protein Albumin Globulin Albumin/Globulin Ratio Triglycerides 65 Cholesterol 182 LDL Cholesterol Direct 120 HDL Cholesterol 41 Free T4 1.35 TSH 3rd Generation 0.40 L Urine Color Urine Appearance Urine pH Ur Specific [place] Urine Protein Urine Glucose (UA) Urine Ketones Urine Blood Urine Nitrate Urine Bilirubin Urine Urobilinogen Ur Leukocyte Esterase Urine RBC Urine WBC Ur Epithelial Cells Amorphous Sediment Urine Bacteria Urine Other Urine Opiates Screen Urine Methadone Screen Ur Barbiturates Screen Ur Phencyclidine Scrn Ur Amphetamines Screen U Benzodiazepines Scrn U Oth Cocaine Metabols U Cannabinoids Screen Alcohol, Quantitative
--- NOTE | 2018-08-23 09:00 | PCM.PYCHPN ---
Psychiatric Progress Note - Psychiatric Progress Note Patient seen today, length of contact: 25 min Problems Identified/Issues Discussed: History of Present Illness and Precipitating Events: Patient is a 28 year old [place] male with reported history of Schizophrenia, 2 psychiatric admissions, {01/12/18-01/20/18 at [facility] and 2016 admission to [facility]}, repeated history of noncompliance with PO meds and injectables who was BIBA with the police and family because of the bizarre behavior at home yesterday evening 08/15/18. Most of patient's information was obtained from review of his chart as patient was not cooperative with an interview this morning. He was also resistant and uncooperative with floor staff upon his arrival last night, refusing to take prescribed medications. Records indicate that patient came home yesterday evening and started to cry and smile without speaking. PES clinician spoke with patient's mother Ivelisse Manzo and she presented a video of patient screaming, laughing and punching his chest. Collateral verbalized that when patient decompensates he primarily laughs and yells. Patient was reluctant to sign in voluntarily however did so to avoid possible involuntary commitment to [facility]. Nursing admission note indicates that patient was preoccupied and staring inappropriately when he arrived to the floor. He admitted to signing the consent because "[place] Police forced me". Patient refused Risperdal and cogentin last night indicating he didn't need medication. Patient was pacing and becoming increasingly upset. Eventually he was given Haldol 5 mg and Ativan 2 mg IM for agitated behavior. This is very similar to his his prior admission in which he required Geodon IM on his first night for agitation. PSYCHIATRIC HISTORY {01/12/18-01/20/18} at [facility]. Patient brought in by his parents for evaluation and stabilization of disorganized thoughts,inability to sleep, hearing voices, self isolating. Pt presented to be disorganized, guarded, par anoid and agitated when arriving on the unit. He tried to elope from the unit and required IM medication Geodon and Ativan because patient was in danger to self or others. Discharged on: Invega Sustenna 156 mg IM ONCE on 01/19/18 Invega Sustenna 117 mg IM Q30D Cogentin 1 mg PO AMHS Benadryl 50 mg PO HS {2016} at [facility] and was put on Invega Sustenna. Collateral (patient's mother) verbalized that patient was linked to [facility] outpatient program. He was prescribed invega but refused to continue treatment and withdrew from [facility] outpatient program. Collateral stated that patient has not been on his medication for months. Patient was discharged 01/20/18 but notably very reluctant to agree to f/u with outpatient recommendations at discharge at that time. SOCIAL HISTORY Patient is single. Resides with family. UDS only + for cannabis PROGRESS NOTE 08/23/18 Patient's behavioral control has improved in the past 4-5 days. He is much less focused on trying to elope and has been compliant with all recommended medications risperdal, cogentin and trazodone. Remains oriented x3 and more verbal during my visits. He denies any new concerns including side effects, discomfort or pain. His affect is actually more reactive and related this morning, he smiles and jokes a little. Patient reports that he continues to sleep well and reports good appetite. Patient's insight still remains poor regarding his diagnosis and need for medications however his judgment is improved. Patient still looks a little guarded and preoccupied but not hypervigilant, sneaky or hostile. His behavior, cooperation and control have consistently improved in the past 4-5 days and patient appears to be reaching baseline. At this time patient is unwilling to f/u with consta or sustenna shots. This provider has doubts about continuing this course considering the repeated failures in the past and patient's continued resistance to accept his diagnosis and treatment. To review, patient required Haldol, Benadryl and Ativan IM in the AM prior to treatment team meeting on Friday08/17/18 and also required Haldol, Benadryl and Ativan po later in that evening. He has been restless, pacing, resistant and looking for ways to elope. He was notably argumentative,illogical and uncompromising during treatment team discussion. Patient put in a 48 hour notice thereafter and was accepted by [facility] screeners for involuntary commitment. OF NOTE: On Friday evening patient was escorted by 4 RNs to the quiet room and required IM prn for agitation and aggression. He tried to elope, a behavior he demonstrated during his prior admission in 12/2017. Diagnostic Results: Schizophrenia Medication Change: Yes (risperdal increased) Medical Record Reviewed: Yes Mental Status Examination - Cognitive Function Orientation: Person, Place Memory: Impaired Attention: Poor Concentration: Poor Association: Loose Fund of Knowledge: Poor - Mood Mood: Neutral - Affect Affect: Constricted, Flat - Speech Speech: Soft - Formal Thought Process Formal Thought Process: Hallucinations (denied today but he is preoccupied, guarded and unhappy), Delusions, Paranoia, Loosening of associations - Suicidal Ideation Suicidal Ideation: No - Homicidal Ideation Homicidal Ideation: No Goal/Treatment Plan - Goal/Treatment Plan Progress Toward Problem(s) and Goals/Treatment Plan: * Group, milieu and supportive tx * Appreciate f/u by Dr. Mcdonald/Dr. Krause on 08/16/18~Sinus Tachycardia; possibly related to anxiety.continue Ativan. Monitor heart rate closely. Kasie d off * Risperdal increased to 3 mg AM & 3 mg HS on 08/23/18. Continue Cogentin 1 mg AM & HS for EPS prophylaxis. * Consider decanoate however it has not been effective for compliance in the past * Haldol 5, Benadryl 25 mg and Ativan 2 mg po/IM prns * Trazodone 50 mg HS increased to 100 mg HS on 08/19/18 to help with sleep, off- label * Ativan 1 mg po HS added on 08/20/18 for restlessness/EPS prophylaxis/mood control and insomnia * Vitals reviewed and noted below: Selected Entries 08/22/18 08/22/18 07:22 16:00 Temperature 98.2 F Pulse Rate 77 69 Respiratory 20 Rate Blood Pressure 98/58 L 107/65 * Pt seen in tx team meeting on 08/17/18 and demonstrated very little insight into need for medications. Placed a 48 hour notice after team meeting. Patient has been accepted for involuntary commitment to [facility] however retracted his 48 hour notice on 08/19/18. * Please refer to ER report dated 08/15/18 for ROS and physical exam findings. 08/15/18 22:20 -EKG: ST @ 112 BPM, no ST elevation or depression, no T wave inversion, normal IA/QRS/QT intervals. * Admission labs noted below: 08/16/18 08/16/18 08/16/18 07:00 07:00 07:00 Fasting Glucose 93 Triglycerides 65 Cholesterol 182 LDL Cholesterol Direct 120 HDL Cholesterol 41 Free T4 1.35 TSH 3rd Generation 0.40 L RPR Nonreactive Laboratory Tests 08/15/18 08/15/18 08/15/18 21:40 21:40 21:40 WBC 9.0 RBC 5.28 Hgb 15.0 Hct 44.9 MCV 85.0 MCH 28.4 MCHC 33.4 RDW 13.1 Plt Count 278 MPV 10.7 Neut % (Auto) 68.9 H Lymph % (Auto) 24.0 [place] % (Auto) 6.8 H Eos % (Auto) 0.2 L Baso % (Auto) 0.1 Lymph # (Auto) 2.2 [place] # (Auto) 0.6 Eos # (Auto) 0.0 Baso # (Auto) 0.01 Absolute Neuts (auto) 6.17 Sodium 140 Potassium 4.1 Chloride 99 Carbon Dioxide 25 Anion Gap 20 BUN 16 Creatinine 1.0 Est GFR ( Amer) > 60 Est GFR (Non-Af Amer) > 60 Random Glucose 104 Fasting Glucose Calcium 9.9 Total Bilirubin 0.6 AST 24 ALT 9 Alkaline Phosphatase 77 Troponin I Total Protein 8.8 H Albumin 5.1 H Globulin 3.7 Albumin/Globulin Ratio 1.4 Triglycerides Cholesterol LDL Cholesterol Direct HDL Cholesterol Free T4 TSH 3rd Generation Urine Color Urine Appearance Urine pH Ur Specific [place] Urine Protein Urine Glucose (UA) Urine Ketones Urine Blood Urine Nitrate Urine Bilirubin Urine Urobilinogen Ur Leukocyte Esterase Urine RBC Urine WBC Ur Epithelial Cells Amorphous Sediment Urine Bacteria Urine Other Urine Opiates Screen Urine Methadone Screen Ur Barbiturates Screen Ur Phencyclidine Scrn Ur Amphetamines Screen U Benzodiazepines Scrn U Oth Cocaine Metabols U Cannabinoids Screen Alcohol, Quantitative < 10 08/15/18 08/15/18 08/15/18 21:40 22:30 22:30 WBC RBC Hgb Hct MCV MCH MCHC RDW Plt Count MPV Neut % (Auto) Lymph % (Auto) [place] % (Auto) Eos % (Auto) Baso % (Auto) Lymph # (Auto) [place] # (Auto) Eos # (Auto) Baso # (Auto) Absolute Neuts (auto) Sodium Potassium Chloride Carbon Dioxide Anion Gap BUN Creatinine Est GFR ( Amer) Est GFR (Non-Af Amer) Random Glucose Fasting Glucose Calcium Total Bilirubin AST ALT Alkaline Phosphatase Troponin I < 0.01 Total Protein Albumin Globulin Albumin/Globulin Ratio Triglycerides Cholesterol LDL Cholesterol Direct HDL Cholesterol Free T4 TSH 3rd Generation Urine Color Yellow Urine Appearance Sl cloudy Urine pH 6.5 Ur Specific [place] 1.020 Urine Protein Trace H Urine Glucose (UA) Negative Urine Ketones 15 H Urine Blood Negative Urine Nitrate Negative Urine Bilirubin Negative Urine Urobilinogen 1.0 H Ur Leukocyte Esterase Negative Urine RBC 0 - 2 Urine WBC 0 - 2 Ur Epithelial Cells None Amorphous Sediment Few Urine Bacteria Many Urine Other Uyeast Urine Opiates Screen Negative Urine Methadone Screen Negative Ur Barbiturates Screen Negative Ur Phencyclidine Scrn Negative Ur Amphetamines Screen Negative U Benzodiazepines Scrn Negative U Oth Cocaine Metabols Negative U Cannabinoids Screen Positive H Alcohol, Quantitative 08/16/18 08/16/18 07:00 07:00 WBC RBC Hgb Hct MCV MCH MCHC RDW Plt Count MPV Neut % (Auto) Lymph % (Auto) [place] % (Auto) Eos % (Auto) Baso % (Auto) Lymph # (Auto) [place] # (Auto) Eos # (Auto) Baso # (Auto) Absolute Neuts (auto) Sodium Potassium Chloride Carbon Dioxide Anion Gap BUN Creatinine Est GFR ( Amer) Est GFR (Non-Af Amer) Random Glucose Fasting Glucose 93 Calcium Total Bilirubin AST ALT Alkaline Phosphatase Troponin I Total Protein Albumin Globulin Albumin/Globulin Ratio Triglycerides 65 Cholesterol 182 LDL Cholesterol Direct 120 HDL Cholesterol 41 Free T4 1.35 TSH 3rd Generation 0.40 L Urine Color Urine Appearance Urine pH Ur Specific [place] Urine Protein Urine Glucose (UA) Urine Ketones Urine Blood Urine Nitrate Urine Bilirubin Urine Urobilinogen Ur Leukocyte Esterase Urine RBC Urine WBC Ur Epithelial Cells Amorphous Sediment Urine Bacteria Urine Other Urine Opiates Screen Urine Methadone Screen Ur Barbiturates Screen Ur Phencyclidine Scrn Ur Amphetamines Screen U Benzodiazepines Scrn U Oth Cocaine Metabols U Cannabinoids Screen Alcohol, Quantitative
[2018-08-24 06:59] VITALS: BP 116/69; PULSE 98; RESP 19; TEMP 98
--- NOTE | 2018-08-24 08:34 | PCM.PYCHDC ---
Mental Status Examination - Mental Status Examination Orientation: Person, Place, Situation Memory: Intact Mood: Neutral Affect: Constricted Speech: Appropriate Attention: WNL Concentration: WNL Association: WNL Fund of Knowledge: WNL Formal Thought Process: No Impairment Description of patient's judgement and insight: Improved and poor-fair insight and fair judgement Psychotic Thoughts and Behaviors: Patient denied perceptual disturbance including hallucinations or paranoia. Delusions were not elicited on day of discharge. Suicidal Ideation: No Current Homicidal Ideation?: No Discharge Summary - Discharge Note Reason for Hospitalization: Patient is a 28 year old [place]ian male with reported history of Schizophrenia, 2 psychiatric admissions, {01/12/18-01/20/18 at [facility] and 2016 admission to [facility]}, repeated history of noncompliance with PO meds and injectables who was BIBA with the police and family because of the bizarre behavior at home yesterday evening 08/15/18. Psychiatric History (includes Medical, Family, Personal Hx): See hpi Laboratory Data: Laboratory Tests 08/15/18 08/15/18 08/15/18 21:40 21:40 21:40 WBC 9.0 RBC 5.28 Hgb 15.0 Hct 44.9 MCV 85.0 MCH 28.4 MCHC 33.4 RDW 13.1 Plt Count 278 MPV 10.7 Neut % (Auto) 68.9 H Lymph % (Auto) 24.0 [place] % (Auto) 6.8 H Eos % (Auto) 0.2 L Baso % (Auto) 0.1 Lymph # (Auto) 2.2 [place] # (Auto) 0.6 Eos # (Auto) 0.0 Baso # (Auto) 0.01 Absolute Neuts (auto) 6.17 Sodium 140 Potassium 4.1 Chloride 99 Carbon Dioxide 25 Anion Gap 20 BUN 16 Creatinine 1.0 Est GFR ( Amer) > 60 Est GFR (Non-Af Amer) > 60 Random Glucose 104 Fasting Glucose Calcium 9.9 Total Bilirubin 0.6 AST 24 ALT 9 Alkaline Phosphatase 77 Troponin I Total Protein 8.8 H Albumin 5.1 H Globulin 3.7 Albumin/Globulin Ratio 1.4 Triglycerides Cholesterol LDL Cholesterol Direct HDL Cholesterol Free T4 TSH 3rd Generation Urine Color Urine Appearance Urine pH Ur Specific [place] Urine Protein Urine Glucose (UA) Urine Ketones Urine Blood Urine Nitrate Urine Bilirubin Urine Urobilinogen Ur Leukocyte Esterase Urine RBC Urine WBC Ur Epithelial Cells Amorphous Sediment Urine Bacteria Urine Other Urine Opiates Screen Urine Methadone Screen Ur Barbiturates Screen Ur Phencyclidine Scrn Ur Amphetamines Screen U Benzodiazepines Scrn U Oth Cocaine Metabols U Cannabinoids Screen Alcohol, Quantitative < 10 RPR 08/15/18 08/15/18 08/15/18 21:40 22:30 22:30 WBC RBC Hgb Hct MCV MCH MCHC RDW Plt Count MPV Neut % (Auto) Lymph % (Auto) [place] % (Auto) Eos % (Auto) Baso % (Auto) Lymph # (Auto) [place] # (Auto) Eos # (Auto) Baso # (Auto) Absolute Neuts (auto) Sodium Potassium Chloride Carbon Dioxide Anion Gap BUN Creatinine Est GFR ( Amer) Est GFR (Non-Af Amer) Random Glucose Fasting Glucose Calcium Total Bilirubin AST ALT Alkaline Phosphatase Troponin I < 0.01 Total Protein Albumin Globulin Albumin/Globulin Ratio Triglycerides Cholesterol LDL Cholesterol Direct HDL Cholesterol Free T4 TSH 3rd Generation Urine Color Yellow Urine Appearance Sl cloudy Urine pH 6.5 Ur Specific [place] 1.020 Urine Protein Trace H Urine Glucose (UA) Negative Urine Ketones 15 H Urine Blood Negative Urine Nitrate Negative Urine Bilirubin Negative Urine Urobilinogen 1.0 H Ur Leukocyte Esterase Negative Urine RBC 0 - 2 Urine WBC 0 - 2 Ur Epithelial Cells None Amorphous Sediment Few Urine Bacteria Many Urine Other Uyeast Urine Opiates Screen Negative Urine Methadone Screen Negative Ur Barbiturates Screen Negative Ur Phencyclidine Scrn Negative Ur Amphetamines Screen Negative U Benzodiazepines Scrn Negative U Oth Cocaine Metabols Negative U Cannabinoids Screen Positive H Alcohol, Quantitative RPR 08/16/18 08/16/18 08/16/18 07:00 07:00 07:00 WBC RBC Hgb Hct MCV MCH MCHC RDW Plt Count MPV Neut % (Auto) Lymph % (Auto) [place] % (Auto) Eos % (Auto) Baso % (Auto) Lymph # (Auto) [place] # (Auto) Eos # (Auto) Baso # (Auto) Absolute Neuts (auto) Sodium Potassium Chloride Carbon Dioxide Anion Gap BUN Creatinine Est GFR ( Amer) Est GFR (Non-Af Amer) Random Glucose Fasting Glucose 93 Calcium Total Bilirubin AST ALT Alkaline Phosphatase Troponin I Total Protein Albumin Globulin Albumin/Globulin Ratio Triglycerides 65 Cholesterol 182 LDL Cholesterol Direct 120 HDL Cholesterol 41 Free T4 1.35 TSH 3rd Generation 0.40 L Urine Color Urine Appearance Urine pH Ur Specific [place] Urine Protein Urine Glucose (UA) Urine Ketones Urine Blood Urine Nitrate Urine Bilirubin Urine Urobilinogen Ur Leukocyte Esterase Urine RBC Urine WBC Ur Epithelial Cells Amorphous Sediment Urine Bacteria Urine Other Urine Opiates Screen Urine Methadone Screen Ur Barbiturates Screen Ur Phencyclidine Scrn Ur Amphetamines Screen U Benzodiazepines Scrn U Oth Cocaine Metabols U Cannabinoids Screen Alcohol, Quantitative RPR Nonreactive Consultations:: List each consultation separately and include: 1. Reason for request. 2. Findings. 3. Follow-up Consultations: * Appreciate f/u by Dr. Mcdonald/Dr. Krause on 08/16/18~Sinus Tachycardia; possibly related to anxiety.continue Ativan. Monitor heart rate closely. Signed off Summary of Hospital Course include:: 1. Description of specific treatment plan utilized for patients during their course of treatmen. 2. Summarize the time- course for resolution of acute symptoms and/or regressed behaviors. 3. Describe issues identified and worked on during hospitalization. 4. Describe medication utilized. 5. Describe medical problems identified and treated. 6. Reassessment of suicide risk Summary of Hospital Course: History of Present Illness and Precipitating Events: Patient is a 28 year old [place]ian male with reported history of Schizophrenia, 2 psychiatric admissions, {01/12/18-01/20/18 at [facility] and 2016 admission to [facility]}, repeated history of noncompliance with PO meds and injectables who was BIBA with the police and family because of the bizarre behavior at home yesterday evening 08/15/18. Most of patient's information was obtained from review of his chart as patient was not cooperative with an interview this morning. He was also resistant and uncooperative with floor staff upon his arrival last night, refusing to take prescribed medications. Records indicate that patient came home yesterday evening and started to cry and smile without speaking. PES clinician spoke with patient's mother Ivelisse Manzo and she presented a video of patient screaming, laughing and punching his chest. Collateral verbalized that when patient decompensates he primarily laughs and yells. Patient was reluctant to sign in voluntarily however did so to avoid possible involuntary commitment to [facility]. Nursing admission note indicates that patient was preoccupied and staring inappropriately when he arrived to the floor. He admitted to signing the consent because "[place] Police forced me". Patient refused Risperdal and cogentin last night indicating he didn't need medication. Patient was pacing and becoming increasingly upset. Eventually he was given Haldol 5 mg and Ativan 2 mg IM for agitated behavior. This is very similar to his his prior admission in which he required Geodon IM on his first night for agitation. PSYCHIATRIC HISTORY {01/12/18-01/20/18} at [facility]. Patient brought in by his parents for evaluation and stabilization of disorganized thoughts,inability to sleep, hearing voices, self isolating. Pt presented to be disorganized, guarded, paranoid and agitated when arriving on the unit. He tried to elope from the unit and required IM medication Geodon and Ativan because patient was in danger to self or others. Discharged on: Invega Sustenna 156 mg IM ONCE on 01/19/18 Invega Sustenna 117 mg IM Q30D Cogentin 1 mg PO AMHS Benadryl 50 mg PO HS {2016} at [facility] and was put on Invega Sustenna. Collateral (patient's mother) verbalized that patient was linked to [facility]'s outpatient program. He was prescribed invega but refused to continue treatment and withdrew from [facility]'s outpatient program. Collateral stated that patient has not been on his medication for months. Patient was discharged 01/20/18 but notably very reluctant to agree to f/u with outpatient recommendations at discharge at that time. SOCIAL HISTORY Patient is single. Resides with family. UDS only + for cannabis PROGRESS NOTE 08/23/18 Patient's behavioral control has improved in the past 4-5 days. He is much less focused on trying to elope and has been compliant with all recommended medications risperdal, cogentin and trazodone. Remains oriented x3 and more verbal during my visits. He denies any new concerns including side effects, discomfort or pain. His affect is actually more reactive and related this morning, he smiles and jokes a little. Patient reports that he continues to sleep well and reports good appetite. Patient's insight still remains poor regarding his diagnosis and need for medications however his judgment is improved. Patient still looks a little guarded and preoccupied but not hypervigilant, sneaky or hostile. His behavior, cooperation and control have consistently improved in the past 4-5 days and patient appears to be reaching baseline. Patient was unwilling to f/u with consta or sustenna shots. This provider has doubts about continuing this course considering the repeated failures in the past and patient's continued resistance to accept his diagnosis and treatment. To review, patient required Haldol, Benadryl and Ativan IM in the AM prior to treatment team meeting on Friday08/17/18 and also required Haldol, Benadryl and Ativan po later in that evening. He has been restless, pacing, resistant and looking for ways to elope. He was notably argumentative,illogical and uncompromising during treatment team discussion. Patient put in a 48 hour notice thereafter and was accepted by [facility] screeners for involuntary commitment. OF NOTE: On Friday evening patient was escorted by 4 RNs to the quiet room and required IM prn for agitation and aggression. He tried to elope, a behavior he demonstrated during his prior admission in 12/2017. * Pt seen in tx team meeting on 08/17/18 and demonstrated very little insight into need for medications. Placed a 48 hour notice after team meeting. Patient has been accepted for involuntary commitment to [facility] however retracted his 48 hour notice on 08/19/18. DISCHARGE NOTE 08/24/18 I interviewed patient again this morning to assess continued stability for discharge. Patient is alert and oriented to month, year and circumstances. Eye contact is good. Patient's affect is much more related, spontaneous and reactive. He feels improved and denies any suicidal thoughts or thoughts to harm others. Feels improvement was primarily from "getting mor rest". Still has poor insight into his mental illness. Patient denies hallucinations and is not responding to internal stimuli. He denies paranoia. Thought process and communication is clear and much improved since admission. Patient feels comfortable with discharge today and denies any new concerns. Denies acute discomfort or pain. Tolerating medications and denies any issues with them. It is likely he will not take his medications after discharge. He refuses decanoate. Delusions and paranoia were not elicited on day of discharge - Diagnosis (1) Schizophrenia Current Visit: Yes Status: Chronic Priority: Medium - Final Diagnosis (DSM 5) Condition upon Discharge: STABLE DSM 5: SCHIZOPHRENIA Disposition: HOME/ ROUTINE Follow-up Treatment Plan: * PLEASE REFER TO SW NOTE FOR DISPOSITION INFORMATION * PATIENT WAS GIVEN AN RX (14 DAYS + 1RF) OF THE FOLLOWING MEDICATIONS: Risperdal 3 mg AM & 3 mg HS for disorganization and negative symptoms Cogentin 1 mg AM & HS for EPS prophylaxis. [id number] mg HS to help with sleep, off-label Ativan 1 mg po HS for restlessness/EPS prophylaxis/mood control and insomnia ~~Considered decanoate however it has not been effective for compliance in the past and patient refused on the unit Laboratory Tests 08/15/18 08/15/18 08/15/18 21:40 21:40 21:40 WBC 9.0 RBC 5.28 Hgb 15.0 Hct 44.9 MCV 85.0 MCH 28.4 MCHC 33.4 RDW 13.1 Plt Count 278 MPV 10.7 Neut % (Auto) 68.9 H Lymph % (Auto) 24.0 [place] % (Auto) 6.8 H Eos % (Auto) 0.2 L Baso % (Auto) 0.1 Lymph # (Auto) 2.2 [place] # (Auto) 0.6 Eos # (Auto) 0.0 Baso # (Auto) 0.01 Absolute Neuts (auto) 6.17 Sodium 140 Potassium 4.1 Chloride 99 Carbon Dioxide 25 Anion Gap 20 BUN 16 Creatinine 1.0 Est GFR ( Amer) > 60 Est GFR (Non-Af Amer) > 60 Random Glucose 104 Fasting Glucose Calcium 9.9 Total Bilirubin 0.6 AST 24 ALT 9 Alkaline Phosphatase 77 Troponin I Total Protein 8.8 H Albumin 5.1 H Globulin 3.7 Albumin/Globulin Ratio 1.4 Triglycerides Cholesterol LDL Cholesterol Direct HDL Cholesterol Free T4 TSH 3rd Generation Urine Color Urine Appearance Urine pH Ur Specific [place] Urine Protein Urine Glucose (UA) Urine Ketones Urine Blood Urine Nitrate Urine Bilirubin Urine Urobilinogen Ur Leukocyte Esterase Urine RBC Urine WBC Ur Epithelial Cells Amorphous Sediment Urine Bacteria Urine Other Urine Opiates Screen Urine Methadone Screen Ur Barbiturates Screen Ur Phencyclidine Scrn Ur Amphetamines Screen U Benzodiazepines Scrn U Oth Cocaine Metabols U Cannabinoids Screen Alcohol, Quantitative < 10 08/15/18 08/15/18 08/15/18 21:40 22:30 22:30 WBC RBC Hgb Hct MCV MCH MCHC RDW Plt Count MPV Neut % (Auto) Lymph % (Auto) [place] % (Auto) Eos % (Auto) Baso % (Auto) Lymph # (Auto) [place] # (Auto) Eos # (Auto) Baso # (Auto) Absolute Neuts (auto) Sodium Potassium Chloride Carbon Dioxide Anion Gap BUN Creatinine Est GFR ( Amer) Est GFR (Non-Af Amer) Random Glucose Fasting Glucose Calcium Total Bilirubin AST ALT Alkaline Phosphatase Troponin I < 0.01 Total Protein Albumin Globulin Albumin/Globulin Ratio Triglycerides Cholesterol LDL Cholesterol Direct HDL Cholesterol Free T4 TSH 3rd Generation Urine Color Yellow Urine Appearance Sl cloudy Urine pH 6.5 Ur Specific [place] 1.020 Urine Protein Trace H Urine Glucose (UA) Negative Urine Ketones 15 H Urine Blood Negative Urine Nitrate Negative Urine Bilirubin Negative Urine Urobilinogen 1.0 H Ur Leukocyte Esterase Negative Urine RBC 0 - 2 Urine WBC 0 - 2 Ur Epithelial Cells None Amorphous Sediment Few Urine Bacteria Many Urine Other Uyeast Urine Opiates Screen Negative Urine Methadone Screen Negative Ur Barbiturates Screen Negative Ur Phencyclidine Scrn Negative Ur Amphetamines Screen Negative U Benzodiazepines Scrn Negative U Oth Cocaine Metabols Negative U Cannabinoids Screen Positive H Alcohol, Quantitative 08/16/18 08/16/18 07:00 07:00 WBC RBC Hgb Hct MCV MCH MCHC RDW Plt Count MPV Neut % (Auto) Lymph % (Auto) [place] % (Auto) Eos % (Auto) Baso % (Auto) Lymph # (Auto) [place] # (Auto) Eos # (Auto) Baso # (Auto) Absolute Neuts (auto) Sodium Potassium Chloride Carbon Dioxide Anion Gap BUN Creatinine Est GFR ( Amer) Est GFR (Non-Af Amer) Random Glucose Fasting Glucose 93 Calcium Total Bilirubin AST ALT Alkaline Phosphatase Troponin I Total Protein Albumin Globulin Albumin/Globulin Ratio Triglycerides 65 Cholesterol 182 LDL Cholesterol Direct 120 HDL Cholesterol 41 Free T4 1.35 TSH 3rd Generation 0.40 L Urine Color Urine Appearance Urine pH Ur Specific [place] Urine Protein Urine Glucose (UA) Urine Ketones Urine Blood Urine Nitrate Urine Bilirubin Urine Urobilinogen Ur Leukocyte Esterase Urine RBC Urine WBC Ur Epithelial Cells Amorphous Sediment Urine Bacteria Urine Other Urine Opiates Screen Urine Methadone Screen Ur Barbiturates Screen Ur Phencyclidine Scrn Ur Amphetamines Screen U Benzodiazepines Scrn U Oth Cocaine Metabols U Cannabinoids Screen Alcohol, Quantitative - Smoking Cessation Smoking Cessation Medication prescribed: No Reason for not providing: - Antipsychotic Medications Pt discharged on 2 or more routine antipsychotic medications: No
== END 2018-08-24 13:38 | disposition home or self-care (01) | DRG 430 ==
LOC: ED 21:16 → ERH 23:07 → PSYC 23:26
PROVIDERS: ADMIT Psychiatry & Neurology Psychiatry; ATTEND Psychiatry & Neurology Psychiatry
PROC: GZ3ZZZZ Medication Management (ICD-10-PCS; principal; 2018-08-16)
DX: F20.9 Schizophrenia, unspecified (principal); Z91.14 Patient's other noncompliance with medication regimen; R00.0 Tachycardia, unspecified; G47.00 Insomnia, unspecified; F17.210 Nicotine dependence, cigarettes, uncomplicated